=== PATIENT | female | born 1955 | race Caucasian/White ===

== ENCOUNTER → 2022-08-15 23:00 | Outpatient (CLI) | payer MEDICARE, SELFPAY ==
[2022-08-15 19:04] LABS: Basophils % 1.3 % (0.1-2.0); Eosinophils # 0.1 K/mm3 (0.0-0.4); Eosinophils % 4.3 % (0.1-12.0); Hematocrit 36.8 % (37.0-47.0); Hemoglobin 11.8 g/dL (12.2-16.2); Lymphocytes # 0.9 K/mm3 (0.7-4.5); Lymphocytes % 28.9 % (10-50); Mean Corpuscular HGB Conc 32.1 g/dL (31.8-35.4); Mean Corpuscular Hemoglobin 30.1 pg (27.0-31.2); Mean Corpuscular Volume 93.7 fl (81-99); Mean Platelet Volume 8.9 fl (7.4-10.4); Monocytes # 0.3 K/mm3 (0.1-1.0); Monocytes % 10.2 % (1.7-9.3); Neutrophils # 1.7 K/mm3 (1.8-7.8); Neutrophils % 55.2 % (37.0-80.0); Platelet Count 255 K/mm3 (142-424); Red Blood Count 3.93 M/mm3 (4.20-5.40); Red Cell Distribution Width 15.3 % (11.5-17.5); White Blood Count 3.2 K/mm3 (4.8-10.8)
[2022-08-15 21:08] LABS: Hemoglobin A1C 4.9 % (4.0-6.0)
[2022-08-15 21:10] LABS: Alanine Aminotransferase 14 U/L (12-78); Albumin Level 3.8 g/dl (3.5-5.0); Albumin/Globulin Ratio 1.2 (1.1-1.8); Alkaline Phosphatase 111 U/L (38-126); Aspartate Amino Transferase 25 U/L (14-36); Bilirubin,Total 0.4 mg/dl (0.2-1.3); Blood Urea Nitrogen 18 mg/dl (7-17); Calcium 8.4 mg/dl (8.4-10.2); Carbon Dioxide 28 mmol/L (22.0-30.0); Chloride 105 mmol/L (98-107); Chol/HDL Ratio 3.3 (1-3.5); Cholesterol 190 mg/dl (140-200); Estimated Glomerular Filt Rate 83 ml/min (>60); GFR (African American) 101 ML/MIN (>60); Globulin 3.3 g/dL (1.3-3.2); Glucose 87 mg/dl (74-100); HDL Cholesterol 58 mg/dl (40-60); Potassium 4.2 mmoL/L (3.5-5.1); Total Protein,Serum 7.1 g/dl (6.3-8.2); Triglycerides 92 mg/dl (30-150); VLDL Cholesterol 18 mg/dL (0-40)
[2022-08-15 21:23] LABS: Anion Gap 9.2 mEq/L (5-15); Sodium 138 mmol/L (136-145)
[2022-08-15 22:21] LABS: Thyroid Stimulating Hormone 1.65 uIU/mL (0.465-4.68)
== END ==
PROVIDERS: PCP Nurse Practitioner Family; Visit Provider Nurse Practitioner Family
DX: M79.675 Pain in left toe(s) (principal); R53.83 Other fatigue; E11.9 Type 2 diabetes mellitus without complications; L40.50 Arthropathic psoriasis, unspecified
CPT/HCPCS: 80053; 80061; 83036; 84443; 85025

== ENCOUNTER → 2022-08-24 22:33 | Outpatient (CLI) | payer MEDICARE, SELFPAY | PROVIDERS: PCP Emergency Medicine; Visit Provider Emergency Medicine | DX: N39.0 Urinary tract infection, site not specified (principal) | CPT/HCPCS: 87086 ==

== ENCOUNTER → 2022-08-29 09:39 | Outpatient (CLI) | payer MEDICARE, SELFPAY ==
--- NOTE | 2022-08-29 09:40 | US_ITS ---
FINAL REPORT CLINICAL HISTORY: .utis urinary bladder FINDINGS: Limited sonographic images of the bladder were obtained. The bladder measures 7.2 x 5.9 x 8.0 cm. Ureteral jets are visualized. Prevoid volume measures 178 cc. Postvoid volume measures 44 cc. IMPRESSION: Small to moderate postvoid residual. Reviewed, Interpreted and Dictated by Ambrocio Olea MD Transcribed by Sara Francisco Authenticated and [facility] [place] [place]
== END ==
PROVIDERS: PCP Emergency Medicine; Visit Provider Physician Assistant
DX: N39.0 Urinary tract infection, site not specified (principal)
CPT/HCPCS: 76857

== ENCOUNTER → 2023-05-06 11:58 | Outpatient (CLI) | payer MEDICARE, SELFPAY ==
--- NOTE | 2023-05-06 12:19 | XR_ITS ---
FINAL REPORT CLINICAL HISTORY: Right hip pain COMPARISON: None FINDINGS: RIGHT HIP Two views of the right hip demonstrate no acute fracture or dislocation. There is mild sclerosis of the pubic symphysis which may be seen with ospubitis. The visualized bony structures are well aligned. No soft tissue abnormality is seen. IMPRESSION: No acute bony abnormality. Reviewed, Interpreted and Dictated by Criselda Thomson MD Transcribed by Rosana Hudson Authenticated and [facility]
--- NOTE | 2023-05-06 12:19 | XR_ITS ---
FINAL REPORT CLINICAL HISTORY: Left hip pain COMPARISON: None FINDINGS: LEFT HIP: Three views of the left hip including an AP view of the pelvis demonstrate no acute fracture or dislocation. There is mild sclerosis of the pubic symphysis which may be seen with ospubitis. The visualized bony structures are well aligned. No soft tissue abnormality is seen. IMPRESSION: No acute bony abnormality. Reviewed, Interpreted and Dictated by Criselda Thomson MD Transcribed by Rosana Hudson Authenticated and [facility]
--- NOTE | 2023-05-06 12:19 | XR_ITS ---
FINAL REPORT CLINICAL HISTORY: Low back pain, gait disturbances COMPARISON: None FINDINGS: Five views of the lumbosacral spine were obtained. No fracture is identified. There is moderate to severe diffuse degenerative disc disease. Vacuum disc changes are noted at multiple levels. There is moderate facet arthropathy. There is minimal dextroscoliosis. IMPRESSION: Moderate to severe degenerative changes without acute findings. Reviewed, Interpreted and Dictated by Criselda Thomson MD Transcribed by Rosana Hudson Authenticated and [facility] [place]
--- NOTE | 2023-05-06 12:19 | XR_ITS ---
FINAL REPORT CLINICAL HISTORY: Left knee pain COMPARISON: None FINDINGS: Two views of the left knee were obtained. Post arthroplasty changes. Hardware is intact. There is no acute fracture or dislocation. There is no joint effusion. There is no soft tissue abnormality. IMPRESSION: Postoperative changes without acute findings. Reviewed, Interpreted and Dictated by Criselda Thomson MD Transcribed by Rosana Hudson Authenticated and [facility]
--- NOTE | 2023-05-06 12:22 | XR_ITS ---
FINAL REPORT CLINICAL HISTORY: Right knee pain COMPARISON: None FINDINGS: Two views of the right knee were obtained. Post arthroplasty changes. Hardware is unremarkable. There is no acute fracture or dislocation. There is no joint effusion. There is no soft tissue abnormality. IMPRESSION: Postoperative changes without acute fracture Reviewed, Interpreted and Dictated by Criselda Thomson MD Transcribed by Rosana Hudson Authenticated and [facility] [place]
[2023-05-06 13:18] LABS: Hemoglobin A1C 5.2 % (4.0-6.0)
[2023-05-06 14:12] LABS: Iron 47 ug/dL (37-170)
[2023-05-06 14:22] LABS: Total Iron Binding Capacity 450 ug/dL (265-497)
[2023-05-06 14:24] LABS: Vitamin B12 221 pg/mL (239-931)
[2023-05-06 14:48] LABS: Ferritin 6.71 ng/ml (11.1-264)
[2023-05-06 15:12] LABS: Folate 9.78 ng/mL
[2023-05-08 14:12] LABS: Albumin 3.1 g/dL (2.9-4.4); Alpha-1-Globulin 0.3 g/dL (0.0-0.4); Gamma Globulin 1.6 g/dL (0.4-1.8); Interpretation(See Below) Comment: (.); Protein, Total 7.4 g/dL (6.0-8.5)
== END ==
PROVIDERS: PCP Internal Medicine; Visit Provider Nurse Practitioner Family
DX: R42 Dizziness and giddiness; R25.2 Cramp and spasm; R20.0 Anesthesia of skin; R20.2 Paresthesia of skin; E11.9 Type 2 diabetes mellitus without complications; R26.9 Unspecified abnormalities of gait and mobility; M54.50 Low back pain, unspecified; M25.551 Pain in right hip; M25.552 Pain in left hip
CPT/HCPCS: 36415; 72100; 73502; 73560; 73562; 82607; 82728; 82746; 83036; 83540; 83550; 84155; 84165; 86334

== ENCOUNTER → 2023-05-15 10:59 | Outpatient (CLI) | payer MEDICARE, SELFPAY ==
[2023-05-15 11:31] LABS: Basophils % 0.9 % (0.1-2.0); Eosinophils # 0.2 K/mm3 (0.0-0.4); Eosinophils % 5.7 % (0.1-12.0); Hematocrit 40.2 % (37.0-47.0); Lymphocytes # 0.8 K/mm3 (0.7-4.5); Lymphocytes % 27.5 % (10-50); Mean Corpuscular HGB Conc 32.3 g/dL (31.8-35.4); Mean Corpuscular Hemoglobin 30.7 pg (27.0-31.2); Mean Corpuscular Volume 94.9 fl (81-99); Mean Platelet Volume 8.2 fl (7.4-10.4); Monocytes # 0.2 K/mm3 (0.1-1.0); Monocytes % 8.2 % (1.7-9.3); Neutrophils # 1.7 K/mm3 (1.8-7.8); Neutrophils % 57.7 % (37.0-80.0); Platelet Count 209 K/mm3 (142-424); Red Blood Count 4.24 M/mm3 (4.20-5.40); Red Cell Distribution Width 16.6 % (11.5-17.5); White Blood Count 2.9 K/mm3 (4.8-10.8)
[2023-05-15 12:40] LABS: Iron 55 ug/dL (37-170)
[2023-05-15 12:51] LABS: Total Iron Binding Capacity 415 ug/dL (265-497)
[2023-05-15 13:16] LABS: Ferritin 6.66 ng/ml (11.1-264)
[2023-05-15 13:21] LABS: Vitamin B12 208 pg/mL (239-931)
== END ==
PROVIDERS: PCP Nurse Practitioner Family; Visit Provider Internal Medicine Medical Oncology
DX: D50.9 Iron deficiency anemia, unspecified (principal)
CPT/HCPCS: 82607; 82728; 82746; 83540; 83550; 85025

== ENCOUNTER 2023-05-30 08:26 | Day surgery (SDC) | payer MEDICARE, SELFPAY ==
[2023-05-29 08:36] VITALS: BMI 41.6
[2023-05-30] VITALS (7 sets, daily range): BP systolic 127–151; BP diastolic 75–89; PULSE 58–64; RESP 14–18; TEMP 36.4–36.6; O2SAT 95–99
--- NOTE | 2023-05-30 08:55 | EXP.ANES.CKL ---
[facility] Disclaimer: The information contained in this section may have been updated after the patient was seen, as this information can be updated by other users. Medical History Depression Hyperlipidemia IBS (irritable bowel syndrome) Surgical History H/O gastric bypass History of knee replacement Family History Other Asthma Cancer Coronary artery disease Diabetes Stroke Social History Smoking Status: Never smoker alcohol intake: never substance use type: denies use current occupational status: retired Travel in the last 8 weeks: None household members: other housing: house lives independently: Yes marital status: [facility] Anesthesia Checklist Patient Identification Patient Identification: Arm Band and Verbal (Name & ) Structural Data Admitted From: Home Planned Operative Procedure/s: EGD/Colonoscopy Consent for Planned Operative Procedure(s) Verified: Yes Verified Documents: Surgical Consent and History and Physical Chart Verification Results Verified: CBC and BMP Additional verifications Patient : No Anesthesia Reactions: No Cardiovascular Assessment Heart Sounds: S1 & S2 Pulse Rhythm: Irregular Peripheral Edema: Yes (2+ SALMA LE) Airway Assessment Mallampati Score:: Class II C-Spine Mobility Assessed: Yes (FROM) TMJ Mobility Assessed: Yes Dentition: Edentulous Neurological Assessment Level of Consciousness: Awake, Alert, Appropriate and Follows Commands Hx Seizures: No Numbness or tingling in extremities: Yes (SALMA LE) Anesthesia Plan Anesthesia Risk discussed: Yes Anesthesia Plan: Verified ASA Class: III Anesthesia Type: MAC
[2023-05-30] MEDS: LACTATED RINGERS 1000ML 1,000 ML 100 ML IV (08:57)
--- NOTE | 2023-05-30 09:24 | HMH.SCOPE ---
Procedure: Date: 05/30/23 Patient Date of :: 1955 Procedure Performed:: Diagnostic EGD Indications:: Iron deficiency anemia Performing Provider:: South Arias MD Referring Provider:: Richard Fowler M.D. Sedation:: Propofol Procedure:: The gastroscope was gently passed through the incisoral orifice into the oral cavity and under direct visualization the esophagus was intubated. The endoscope was passed down the esophagus, through the stomach, and into the duodenum. Color, texture, mucosa, and anatomy of the esophagus, stomach, and duodenum were carefully examined with the scope. Findings:: Oropharynx: normal Esophagus: normal EG Junction: intact at 40 cm Cardia: normal Fundus: normal Body: Gastric bypass anatomy (R-2) type Antrum: by passed Duodenal by passed Duodenum (second and third portion): normal Impression: Unremarkable post gastric bypass anatomy No evidence of ulcer disease or active blood loss Recommendations:: F/U PRN Complications:: None Estimated blood obtained (mL): 0 Colonoscopy Component Colonoscopy Component Was a colonoscopy performed during today's procedure?: No
--- NOTE | 2023-05-30 09:27 | HMH.SCOPE ---
Procedure: Date: 05/30/23 Patient Date of :: 1955 Procedure Performed:: Colonoscopy Indications:: Iron deficiency anemia Performing Provider:: South Arias MD Referring Provider:: Richard Fowler M.D. Sedation:: Propofol Procedure:: After placing the patient in the left lateral decubitus position, the colonoscopy was gently inserted into the rectum and under direct visualization advanced to the mid sigmoid region where further advancement was found not possible due to poor colon preparation. Decision was made to discontinue the procedure at this time. Findings:: Anal canal: normal Rectum: normal Sigmoid colon: grossly normal. Mucosa covered with thick layer of residual stool compromising visualization. Descending colon: Not seen Splenic flexure: Not seen Transverse colon: Not seen Hepatic flexure: Not seen Ascending colon: not seen Cecum: not seen Terminal ileum: not visualized Impression: Incomplete colonoscopy due to inadequate colon prep Recommendations:: Consider repeat colonoscopy attempt after a two-day prep. Complications:: None Estimated blood obtained (mL): 0 Colonoscopy Component Colonoscopy Component Was a colonoscopy performed during today's procedure?: Yes Recommended follow up colonoscopy of at least 10 years?: No If no, follow up colonoscopy recommended in ___ years?: 0 Reason for not recommending >/= 10 yr follow-up interval?: Incomplete exam due to poor prep
--- NOTE | 2023-05-30 09:31 | EXP.ANES.I ---
[facility] Anesthesia Record Part I Anesthesia Record I Intake, IV Amount: 200 Hydration: Adequate Estimated blood loss (mL): 0 Urine output (mL): 0 Blood Products used (#): none Blood Pressure: 137/78 SaO2: 96 Pulse Rate: 59 Airway Patency: Patent Respiratory Rate: 18 Temperature: 97.6 F Patient is:: Awake (Talking) and Stable Stable to PACU at:: 09:30
== END 2023-05-30 10:10 | disposition home or self-care (01) ==
PROVIDERS: PCP Nurse Practitioner Family; Visit Provider Internal Medicine Gastroenterology
PROC: 0DJ08ZZ Inspection of Upper Intestinal Tract, Via Natural or Artificial Opening Endoscopic (ICD-10-PCS; CPT 43235; principal; 2023-05-30 09:30)
DX: D50.9 Iron deficiency anemia, unspecified (principal); Z98.84 Bariatric surgery status; Z91.199 Patient's noncompliance with other medical treatment and regimen due to unspecified reason
CPT/HCPCS: 43235; 45378

== ENCOUNTER 2023-07-03 13:33 | Outpatient (CLI) | payer MEDICARE, SELFPAY ==
[2023-07-03 14:13] LABS: Basophils % 0.4 % (0.1-2.0); Eosinophils # 0.1 K/mm3 (0.0-0.4); Eosinophils % 2.9 % (0.1-12.0); Hematocrit 39.7 % (37.0-47.0); Hemoglobin 12.9 g/dL (12.2-16.2); Lymphocytes % 27.8 % (10-50); Mean Corpuscular HGB Conc 32.6 g/dL (31.8-35.4); Mean Corpuscular Hemoglobin 31.7 pg (27.0-31.2); Mean Corpuscular Volume 97.4 fl (81-99); Mean Platelet Volume 7.8 fl (7.4-10.4); Monocytes # 0.2 K/mm3 (0.1-1.0); Monocytes % 6.5 % (1.7-9.3); Neutrophils # 2.1 K/mm3 (1.8-7.8); Neutrophils % 62.3 % (37.0-80.0); Platelet Count 222 K/mm3 (142-424); Red Blood Count 4.08 M/mm3 (4.20-5.40); Red Cell Distribution Width 17.8 % (11.5-17.5); White Blood Count 3.4 K/mm3 (4.8-10.8)
[2023-07-03 14:42] LABS: Chloride 104 mmol/L (98-107)
[2023-07-03 14:43] LABS: Potassium 4.6 mmoL/L (3.5-5.1); Sodium 139 mmol/L (136-145)
[2023-07-03 14:45] LABS: Alanine Aminotransferase 21 U/L (12-78); Alkaline Phosphatase 135 U/L (38-126); Anion Gap 8.6 mEq/L (5-15); Aspartate Amino Transferase 32 U/L (14-36); Bilirubin,Total 0.5 mg/dl (0.2-1.3); Blood Urea Nitrogen 14 mg/dl (7-17); Carbon Dioxide 31 mmol/L (22.0-30.0); Estimated Glomerular Filt Rate 71 ml/min (>60); GFR (African American) 86 ML/MIN (>60); Iron 82 ug/dL (37-170)
[2023-07-03 14:46] LABS: Albumin Level 3.6 g/dl (3.5-5.0); Albumin/Globulin Ratio 1.1 (1.1-1.8); Calcium 8.8 mg/dl (8.4-10.2); Globulin 3.2 g/dL (1.3-3.2); Glucose 87 mg/dl (74-100); Total Protein,Serum 6.8 g/dl (6.3-8.2)
[2023-07-03 14:55] LABS: Total Iron Binding Capacity 374 ug/dL (265-497)
[2023-07-03 15:31] LABS: Ferritin 17.4 ng/ml (11.1-264)
[2023-07-03 15:45] LABS: Vitamin B12 867 pg/mL (239-931)
[2023-07-03 16:18] LABS: Folate 8.15 ng/mL
== END 2023-07-03 23:59 ==
LOC: LAB 13:35
PROVIDERS: PCP Nurse Practitioner Family; Visit Provider Internal Medicine Medical Oncology
DX: E53.8 Deficiency of other specified B group vitamins; D50.9 Iron deficiency anemia, unspecified
CPT/HCPCS: 36415; 80053; 82607; 82728; 82746; 83540; 83550; 85025

== ENCOUNTER 2023-08-22 15:00 | Outpatient (RCR) | payer MEDICARE, SELFPAY ==
--- NOTE | 2023-07-21 18:53 | HMH.PTOPEV ---
PT Outpatient Evaluation Rehab PT Outpatient Evaluation Start: 07/19/23 09:42 Freq: Status: Active Protocol: Document 07/19/23 09:42 YASMANY (Rec: 07/19/23 18:28 YASMANY [id number]) E-signed By Arturo Dyer, PT Outpatient Therapy Subjective History Subjective History Patient is a 68 year old female presenting to outpatient PT with reports of chronic low back pain, BLE weakness and paresthesia R>L. Reports of LBP for approx 30 years. Reports of numbness/ tingling L>R. Comorbidities include hx of B TKA and gastric bypass procedure per patient report. Most recent imaging indicates multi-level DDD. New diagnosis of cancer in past 12 No months? Chief Complaint Pain,Paresthesia,Weakness Symptom Type Ache Symptoms Relieved By Rest/Positioning Symptoms Aggravated By Standing,Physical Activity, Walking Prior Functional Limitations Standing,Walking Current Functional Limitations Housework,Standing,Walking Symptom Description Intermittent Level of pain today (0-10) 5 Pain scale - at its best (0-10) 3 Pain scale - at its worst (0-10) 9 Balance Eval Subjective Hx of Complaint Comment Difficulty with all standing/ abulatory activities. Prior Functional Limitations Prior Functional [place] Level LPB, difficulty with prolonged standing, ambulation, bending and lifting activities. Current Functional Limitations Comment LPB, difficulty with prolonged standing, ambulation, bending and lifting ac [place] Feet Together/Eyes open/Stable Surface pass Feet Together/Eyes Closed/Stable Surface pass Feet Together/Eyes open/Unstable Surface fail Feet Together/Eyes Closed/Unstable fail Surface Outpatient Therapy Assessment Impairments Problems/Impairmments Palpation Tenderness,Impaired Range of Motion,Impaired Strength,Impaired Endurance, Impaired Walking,Impaired Standing,Impaired Lifting, Impaired Household Care, Impaired Stair Climbing, Impaired Incline Stepping, Impaired Stepping on Uneven Surface,Impaired Squatting, Impaired Bending,Impaired Balance,Subjective C/O Pain Prognosis Rehab Potential Fair Clinical Impression Consistent with Diagnosis Yes Short Term Goals Number of Weeks 2 Decrease Subjective C/O Pain Yes: 5/10 at worst Patient to be Ind w/ HEP Yes Criminal Intelligence Analyst Goals Number of Weeks 4-6 Decreased Palpation Tenderness Yes: 1/4 Increase Strength Yes: BLE 5/5 grossly (4-/5 currently) Increase Ability to Walk Yes: 30 min without difficulty Increase Ability to Stand Yes: Improve Ability For Household Care Yes Increase DGI Score Yes: mild fall risk Decrease Subjective C/O Pain Yes: 2/10 at worst Outpatient Therapy Plan of Care Addendums This patient is a candidate for social No or vocational rehab? Patient/Guardian verbally acknowledges Yes understanding of treatment program and consents to further treatment? Patient/Guardian verbally acknowledges Yes understanding of diagnosis, prognosis and goals for treatment? Eval Complexity PT Charges 51478 - Moderate Complexity Shoulder/Elbow Eval Shoulder Objective Measurements Elbow Objective Measurements PHYSICIAN CERTIFICATION: I certify the specified therapy services for Karrie Tobias are required, authorized, and reviewed every 30 days.
== END 2023-08-22 16:00 | disposition home or self-care (01) ==
LOC: PT 15:00
PROVIDERS: PCP Nurse Practitioner Family; Visit Provider Nurse Practitioner Family
DX: R26.89 Other abnormalities of gait and mobility (principal); M25.551 Pain in right hip; M25.552 Pain in left hip; M25.562 Pain in left knee; M25.561 Pain in right knee; M54.50 Low back pain, unspecified; R29.898 Other symptoms and signs involving the musculoskeletal system; R20.0 Anesthesia of skin; R20.2 Paresthesia of skin; G57.82 Other specified mononeuropathies of left lower limb
CPT/HCPCS: 97010; 97014; 97110; 97163; 97530; G0283

== ENCOUNTER 2023-12-10 09:48 | Outpatient (CLI) | payer MEDICARE, SELFPAY ==
--- NOTE | 2023-12-10 09:54 | MM_ITS ---
PROCEDURE INFORMATION: Exam: MG Bilateral Screening 3D Mammography Exam date and time: 12/10/2023 9:50 AM Age: 68 years old Clinical indication: Screening examination TECHNIQUE: Imaging protocol: Bilateral Screening tomosynthesis and 2D mammography including computer-aided detection (CAD) when performed. COMPARISON: No relevant prior studies available. Baseline FINDINGS: MAMMOGRAPHY: Breast composition: There are scattered areas of fibroglandular density. Mass: Questionable 1.2 cm mass in the middle third of the left 9 o'clock axis Architectural distortion: None. Calcifications: No suspicious calcifications. Asymmetric density: None. Skin thickening: None. Axillary adenopathy: None. IMPRESSION: Patient to be recalled for spot compression views of the left breast in the CC and MLO projections, a full 90 degree lateral view, and possible left breast ultrasound for further evaluation of a left breast mass. ASSESSMENT: BI-RADS Category 0: Incomplete- Need Additional Imaging Evaluation and/or Prior Mammograms for Comparison.
== END 2023-12-10 23:59 | disposition home or self-care (01) ==
LOC: RAD 09:49
PROVIDERS: PCP Nurse Practitioner Family; Visit Provider Nurse Practitioner Family
DX: Z12.31 Encounter for screening mammogram for malignant neoplasm of breast (principal)
CPT/HCPCS: 77063; 77067

== ENCOUNTER 2024-01-01 14:16 | Outpatient (CLI) | payer MEDICARE, SELFPAY ==
--- NOTE | 2024-01-01 14:17 | US_ITS ---
PROCEDURE INFORMATION: Exam: US Left Breast, Complete MG Left Diagnostic Breast Tomosynthesis Exam date and time: 01/01/2024 2:10 PM Age: 68 years old Clinical indication: Callback for questionable 1.2 cm mass in the left 9 o'clock middle 1/3 identified on screening mammogram 12/10/2023 TECHNIQUE: Imaging protocol: Complete ultrasound of all four quadrants of the left breast and the retroareolar regions, including ultrasound of the axilla when performed. Left Diagnostic tomosynthesis and 2D mammography including computer-aided detection (CAD) when performed. Unilateral or bilateral exam. COMPARISON: MG MM DIG SCREENING MAMM BI W/CAD 12/10/2023 9:50 AM FINDINGS: MAMMOGRAPHY: Breast composition: There are scattered areas of fibroglandular density. Breast mammogram findings: Cc/MLO spot compression views and lateral view of the left breast were performed The finding of interest does not persist on CC spot compression view with subtle 1.1 cm focal asymmetry persisting on MLO/full lateral in the slightly upper anterior left breast. No architectural distortion or suspicious calcifications ULTRASOUND: Breast ultrasound findings: Incidentally discovered 0.2 cm hypoechoic superficial mass along the 11 o'clock axis left breast 3 cm from the nipple has features suggesting fat necrosis Otherwise, only normal glandular structures are present in the regions assessed No suspicious solid or cystic mass is present. No benign-appearing solid or cystic mass is present. No architectural distortion or shadowing is present. No axillary adenopathy is present. IMPRESSION: Probably benign. Six-month follow-up left diagnostic mammogram is recommended to assess stability of possible subtle focal asymmetry only persisting on MLO spot compression and lateral view of the left breast with no sonographic correlate. Six-month follow-up targeted ultrasound is recommended to assure stability of a probable 0.2 cm focus of fat necrosis along the left 11 o'clock axis ASSESSMENT: BI-RADS category 3: Probably benign
== END 2024-01-01 23:59 | disposition home or self-care (01) ==
LOC: RAD 14:17
PROVIDERS: PCP Nurse Practitioner Family; Visit Provider Nurse Practitioner Family
DX: R92.8 Other abnormal and inconclusive findings on diagnostic imaging of breast (principal); Z85.3 Personal history of malignant neoplasm of breast
CPT/HCPCS: 76641; 77061; 77065; G0279

== ENCOUNTER 2025-03-01 13:53 | Outpatient (CLI) | payer MEDICARE, SELFPAY ==
--- OUTSIDE RECORDS SUMMARY | 2025-03-01 13:55 | XMS_ITS | Clinical Summary ---
Author Organization [facility] Address [address] [place] [address] Care Team Providers Care Vp Director Of Finance Name Role Phone Dionte Archibald BRITT Primary Care Provider + Allergies Active Allergy Reactions Criticality Noted Date Comments Penicillins Other (See Comments) 08/09/2015 Prednisone Other (See Comments) Medium 11/16/2020 Medications leflunomide (ARAVA) 20 MG tablet Take 20 mg by mouth Every Other Day. 0 07/08/19 19 Active rOPINIRole (REQUIP) 1 MG tablet Take 1 mg by mouth 3 (Three) Times a Day. 0 01/01/20 19 Active COSENTYX SENSOREADY 300 DOSE 150 MG/ML solution auto-injector 01/20/20 19 Active hydrOXYzine (ATARAX) 25 MG tabletIndications: Dermatitis Take 1 tablet by mouth 3 (Three) Times a Day As Needed for Itching. 30 tablet 2 06/08/20 19 Active amLODIPine (NORVASC) 10 MG tabletIndications: Essential hypertension Take 1 tablet by mouth Daily. 30 tablet 5 10/06/19 20 Active buPROPion SR (WELLBUTRIN SR) 100 MG 12 hr tabletIndications: Moderate episode of recurrent major depressive disorder Take 1 tablet by mouth 2 (Two) Times a Day. 60 tablet 5 10/06/19 20 Active venlafaxine (EFFEXOR) 75 MG tabletIndications: Severe episode of recurrent major depressive disorder, without psychotic features Take 2 tablets by mouth 2 (Two) Times a Day. 120 tablet 5 10/06/19 20 Active valACYclovir (VALTREX) 1000 MG tabletIndications: Fever blister Take 1 tablet by mouth Daily. 30 tablet 5 01/07/20 20 Active Simethicone (GAS-X PO) Take by mouth. Activ e acetaminophen (Tylenol 8 Hour) 650 MG 8 hr tablet As Needed. Active loratadine (Claritin) 10 MG tabletIndications: Seasonal allergic rhinitis due to pollen Take 1 tablet by mouth Daily. 30 tablet 1 11/17/19 21 Active ondansetron ODT (ZOFRAN-ODT) 8 MG disintegrating tabletIndications: Nausea Take 1/2 to 1 tablet by mouth (dissolve under tongue or swallow) every 8 hours as needed for nausea. 30 tablet 1 07/04/19 22 Active clobetasol (TEMOVATE) 0.05 % ointmentIndication s:Psoriasis with arthropathy Apply topically to the appropriate area as directed See Admin Instructions. Apply topically to the affected area twice daily 15 g 1 10/12/19 22 Active Active Problems Problem Noted Date Diagnosed Date Mixed hyperlipidemia 01/08/2020 Fever blister 01/08/2020 Sciatica of right side 10/06/2019 Severe episode of recurrent major depressive disorder, without psychotic features 10/06/2019 Pure hypercholesterolemia 01/27/2019 Rheumatoid arthritis 01/26/2019 Calculus of gallbladder with out cholecystitis without obstruction 09/17/2018 Elevated alkaline phosphatase level 08/25/2018 Essential hypertension 08/22/2018 RLS (restless legs syndrome) 08/22/2018 Angina at rest 08/22/2018 H/O bariatric surgery 08/22/2018 Chronic pain of both knees 08/22/2018 Moderate episode of recurrent major depressive d isorder 08/22/2018 LEONARD (obstructive sleep apnea) 08/22/2018 Morbid obesity 08/22/2018 Vertigo 08/22/2018 Psoriasis 08/22/2018 Small plaque parapsoriasis 01/25/2016 Psoriasis with arthropathy 10/21/2015 Vitamin D deficiency 09/21/2015 Pain in right foot 08/09/2015 Pain in right hand 08/09/2015 Immunizations Immunization Administration Dates Next Due Flu Vaccine Quad PF >36MO 03/13/2016 Fluzone (or Fluarix & Flulaval for VFC) >6mos Shingrix 01/28/2019 Family History Medical History Relation Name Comments Breast cancer Maternal Aunt AGE UNKNOWN Cancer Mother Hyperlipidemia Mother Hypertension Mother Obesity Mother Ovarian cancer Mother Hypertension Sister Relation Name Status Comments Maternal Aunt Mother Sister Social History Tobacco Use Types Packs/Day Years Used Date Smoking Tobacco: Never Smokeless Tobacco: Never Tobacco Cessation:Counseling Given: No Alcohol Use Standard Drinks/Week Comments No 0 (1 standard drink = 0.6 oz pur e alcohol) AUDIT-C Answer Date Recorded Frequency of Alcohol Consumption Never 10/20/2018 Average Number of Drinks Not on file 019 Frequency of Binge Drinking Not on file 10/08 PHQ-2 Answer Date Recorded PHQ-2 Score 26 01/26/2019 Abuse Screen Answer Date Recorded Unsafe at Home or Work/School Not on file Feels Threatened by Someone? Not on file 03/2023 Does Anyone Keep You from Co ntacting Others or Doint Things Outside the Home? Not on file 03/19/2023 Physical Sign of Abuse Present Not on file 1 Housing Stability Answer Date Recorded Current Living Arrangements Not on file 03/10 Potentially Unsafe Housing Conditions Not on keri e 03/19/2023 Family and Community Support Answer Ganga e Recorded Help with Day-to-Day Activities Not on file 03/19/2023 Lonely or Isolated Not on file 03/19/2023 Employment Answer Date Recorded Do you want help finding or keeping work or a payton b? Not on file 03/19/2023 Disabilities Answer Date Recorded Concentrating, Remembering, or Making Decisions Difficulty Not on file 03/19/2023 Doing Errands Independently Difficulty Not on fi le 03/19/2023 Education Answer Date Recorded Help with school or training? Not on file Preferred Language Not on file 03/19/2023 Comments No Sex and Gender Information Value Date Recorded Sex Assigned at Not on file Legal Sex Female 1:39 PM EDT Gender Identity Not on file Sexual Orientation Not on file Last Filed Vital Signs Vital Sign Reading Time Taken Comments Blood Pressure 138/90 11/16/2020 1:27 PM EDT Pulse 85 11/16/2020 1:27 PM EDT Temperature 36.2 C (97.2 F) 11/16/2020 1:27 PM EDT Respiratory Rate 18 11/16/2020 1:27 PM EDT Oxygen Saturation 98% 11/16/2020 1:27 PM EDT Inhaled Oxygen Concentration - - Weight 125 kg (275 lb) 11/16/2020 1:27 PM EDT Height 162.6 cm (5' 4 ) 11/16/2020 1:27 PM EDT Body Mass Index 47.2 11/16/2020 1:27 PM EDT Plan of Treatment Health Maintenance Due Date Last Done Comments DXA SCAN 1955 TDAP/TD VACCINES (1 - Tdap) 1974 COLOGUARD 2000 COLON CANCER SCREENING 5 YEA R SIGMOIDOSCOPY 2000 CT COLONOGRAPHY 2000 FECAL OCCULT BLOOD TEST 2000 FIT Testing (1 year) 2000 Pneumococcal Vaccine 50+ (1 of 1 - PCV) 2005 MAMMOGRAM 03/16/2018 03/16/2016 ANNUAL PHYSICAL 08/22/2018 LIPID PANEL 08/16/2023 08/15/2022, 07/06/2021, 01/12/2020, Additional history exists INFLUENZA VACCINE 01/08/2025 01/28/2019, 03/13/2016 COVID-19 Vaccine (1 - 2023-2 5 season) 2025 COLONOSCOPY 02/26/2028 02/25/2018 COLORECTAL CANCER SCREENING 02/26/2028 HEPATITIS C SCREENING Completed 01/26/2019 ZOSTER VACCINE Discontinued 01/28/2019 HEMOGLOBIN A1C Discontinued 08/15/2022 Procedures Procedure Name Priority Date/Time Associated Diagnosis Comments LIPID PANEL Routine 01/12/2020 8:50 AM EDT Mixed hyperlipidemia HEPATITIS C ANTIBODY Routine 01/26/2019 2:36 PM EDT Need for hepatitis C screening test MAMMO SCREENING DIGITAL TOMOSYNTHESIS BILATERAL W CAD Routine 03/16/2016 2:18 PM EDT Visit for screening mammogram from Last 3 Months or Most Recently Relevant to Health Maintenance Results * (ABNORMAL) Lipid Panel (01/12/2020 8:50 AM EDT) Total Cholesterol 180 0 - 200 mg/dL 01/12/2020 3:00 PM EDT [facility] Triglycerides 112 0 - 150 mg/dL 01/12/2020 3:00 PM EDT [facility] HDL Cholesterol 54 40 - 60 mg/dL 01/12/2020 3:00 PM EDT [facility] LDL Cholesterol 104(H) 0 - 100 mg/dL 01/12/2020 3:00 PM EDT [facility] VLDL Cholesterol 22.4 5 - 40 mg/dL 01/12/2020 3:00 PM EDT [facility] LDL/HDL Ratio 1.92 01/12/2020 3:00 PM EDT [facility] Blood Venipuncture / Unknown 01/12/2020 8:50 AM EDT 01/12/2020 8:50 AM EDT Narrative [facility] - 01/12/2020 3:00 PM EDT Cholesterol Reference Ranges (U.S. Department of Health and Human Services ATP III Classifications) Desirable <200 mg/dL Borderline High 200-239 mg/dL High Risk >240 mg/dL Triglyceride Reference Ranges (U.S. Department of Health and Human Services ATP III Classifications) Normal <150 mg/dL Borderline High 150-199 mg/dL High 200-499 mg/dL Very High >500 mg/dL HDL Reference Ranges (U.S. Department of Health and Human Services ATP III Classifcations) Low <40 mg/dl (major risk factor for CHD) High >60 mg/dl ('negative' risk factor for CHD) LDL Reference Ranges (U.S. Department of Health and Human Services ATP III Classifcations) Optimal <100 mg/dL Near Optimal 100-129 mg/dL Borderline High 130-159 mg/dL High 160-189 mg/dL Very High >189 mg/dL us Lor Harrison APRN LAB BLOOD ORDERABLES Final R esult [facility]
[address] [place] [address], * Hepatitis C Antibody (01/26/2019 2:36 PM EDT) Hep C Virus Ab <0.1 0.0 - 0.9 s/co ratio [facility] Comment: Negative: < 0.8 Indeterminate: 0.8 - 0.9 Positive: > 0.9 The CDC recommends that a positive HCV antibody result be followed up with a HCV Nucleic Acid Amplification test (000617). Blood 01/26/2019 2:36 PM EDT 01/27/2019 Comment:BLOOD Narrative [facility] ([facility]) - 01/27/2019 12:09 PM EDT Performed at: 01 - [facility] [address] [place], [place] [id number] Justice Of The Peace: Konstantin Da Silva PhD, Phone: [phone] Lor Harrison APRN LAB BLOOD ORDERABLES Final R esult [facility] [address] [place] [address], [facility] [address] [place] [address], * Mammo Screening Digital Tomosynthesis Bilateral With CAD (03/16/2016 2:18 PM EDT) Anatomical Region Laterality Modality Breast N/A Mammography 03/19/2016 10:4 1 AM EDT Impressions 03/19/2016 10:50 AM EDT No findings suspicious for malignancy. ACR BI-RADS CATEGORY: 1, NEGATIVE RECOMMENDATION: Yearly mammogram, yearly physical exam, and monthly self breast exam. CAD was used. The standard false negative rate of mammography is between 10% and 25%. Complex patterns or increased breast density will markedly elevate the false negative rate of mammography. A letter, in lay terminology, with the results of this exam will be mailed to the patient. If there is a palpable area of concern, biopsy should be considered regardless of imaging findings. This report was finalized on 03/19/2016 10:[address] Kacie Garza MD. Narrative 03/19/2016 10:50 AM EDT EXAMINATION: BILATERAL SCREENING DIGITAL MAMMOGRAM WITH TOMOSYNTHESIS: HISTORY: Routine screening. IMAGE COMPARISON: This is the patient's baseline exam. TECHNIQUE: Low dose full field digital breast tomosynthesis examination was performed with 2D and 3D acquisitions. FINDINGS: There are scattered areas of fibroglandular density. There is no mass, worrisome microcalcifications, or architectural distortion to suggest malignancy. us Stacie Morfin MD IMG MAMMOGRAPHY ORDERABLES Fi nal Result from Last 3 Months or Most Recently Relevant to Health Maintenance Insurance [employer]VANTAGE Care Teams Vp Director Of Finance Relationship Specialty Start Date End Date Dionte Archibald APRN [address] [facility] [address] [place] [id number] PCP - General Family Medicine 11/16/20
--- OUTSIDE RECORDS SUMMARY | 2025-03-01 13:55 | XMS_ITS | Clinical Summary ---
Author Organization [facility] Address [address] [place] [address] Care Team Providers Care Target Setter Name Role Phone Unavailable Primary Care Provider Unavailabl e Medications clobetasol (Temovate) 0.05 % ointment Apply 1 application topically 2 (two) times a day. Active Family History Medical History Relation Name Comments Hypertension Father Diabetes Mother Hypertension Mother Other cancer Mother Relation Name Status Comments Father Mother Social History Tobacco Use Types Packs/Day Years Used Date Smoking Tobacco: Never Alcohol Use Standard Drinks/Week Comments No 0 (1 standard drink = 0.6 oz pur e alcohol) Comments Unknown Sex and Gender Information Value Date Recorded Sex Assigned at Not on file Legal Sex Female 7:40 PM EDT Gender Identity Not on file Sexual Orientation Not on file Last Filed Vital Signs Vital Sign Reading Time Taken Comments Blood Pressure 139/88 12/21/2019 10:39 AM EDT Pulse 91 12/21/2019 10:39 AM EDT Temperature 36.3 C (97.3 F) 12/21/2019 10:39 AM EDT Respiratory Rate 16 12/21/2019 10:39 AM EDT Oxygen Saturation - - Inhaled Oxygen Concentration - - Weight 127 kg (279 lb 9.1 oz) 12/21/2019 10:39 A M EDT Height 160 cm (5' 3 ) 12/21/2019 10:39 AM EDT Body Mass Index 49.52 12/21/2019 10:39 AM EDT Plan of Treatment Health Maintenance Due Date Last Done Comments UKY-Bone Density Scan 1955 UKY-Depression Screening 1955 UKY-Infant/Child/Adol SDOH Screenings 1955 UKY- SDOH Screenings 1973 UKY-Adult SDOH Screenings 1973 UKY-DTaP,Tdap,and Td Vaccine s (1 - Tdap) 1974 CT Colonography 2000 Colonoscopy 2000 FIT-DNA 2000 FIT 2000 FOBT 2000 Sigmoidoscopy 2000 UKY-Colorectal Cancer Screening 2000 UKY-Pneumococcal Vaccine: 50 + Years (1 of 1 - PCV) 2005 UKY-Zoster Vaccines (1 of 2) 2005 NKV-HQOOM-31 Vaccine ( - 20 24-25 season) 2025 UKY-Influenza Vaccine (#1) 2025 UKY-RSV Vaccine: 60+ Years o r (1 - 1-dose 75+ series) 2030 HPV Vaccines Aged Out No longer eligi ble based on patient's age to complete this topic UKY-HIB Vaccines Aged Out No longer e ligible based on patient's age to complete this topic UKY-Hepatitis A Vaccines Aged Out No longer eligible based on patient's age to complete this topic UKY-IPV Vaccines Aged Out No longer e ligible based on patient's age to complete this topic UKY-Rotavirus Vaccines Aged Out No lo nger eligible based on patient's age to complete this topic
--- OUTSIDE RECORDS SUMMARY | 2025-03-01 13:55 | XMS_ITS | Encounter Summary ---
Author Organization [facility] Address [address] [place] [id number] Care Team Providers Care Well Reactivator Operator Name Role Phone Archibald, Dionte Rhiannon ACCOUNT MANAGER B2B Primary Care Provider + Reason for Visit * Reason Onset Date Comments Med Refill 09/26/2021 Encounter Details Date Type Department Care Team (Late st Contact Info) Description 09/26/2021 Refill [facility] [address] [facility] [address] [place] [phone] Dionte Archibald, ACCOUNT MANAGER B2B [address] [facility] [address] [place] [address] Psoriasis with arthropathy Social History Tobacco Use Types Packs/Day Years Used Date Smoking Tobacco: Never Smokeless Tobacco: Never Alcohol Use Standard Drinks/Week Comments No 0 (1 standard drink = 0.6 oz pur e alcohol) AUDIT-C Answer Date Recorded Frequency of Alcohol Consumption Never 10/20/2018 Average Number of Drinks Not on file 019 Frequency of Binge Drinking Not on file 10/08 PHQ-2 Answer Date Recorded PHQ-2 Score 26 01/26/2019 Comments No Sex and Gender Information Value Date Recorded Sex Assigned at Not on file Legal Sex Female 1:39 PM EDT Gender Identity Not on file Sexual Orientation Not on file documented as of this encounter Miscellaneous Notes * Telephone Encounter - Angeli De Leon RegSched Rep - 09/26/2021 12:58 PM EDT .Caller: PARTH Relationship: MARY Best call back number:[phone] Requested Prescriptions: Requested Prescriptions Pending Prescriptions Disp Refills ??? clobetasol (TEMOVATE) 0.05 % ointment 15 g 1 Sig: Apply topically to the appropriate area as directed See Admin Instructions. Apply topically tothe affected area twice daily Pharmacy where request should be sent: [id number] - [place], [place] - [address] [facility] [phone] [facility] [phone] FX Additional details provided by patient: N/A Does the patient have less than a 3 day supply: [x] Yes [x] No Scotty KWOK 09/26/21 12:59 EDT documented in this encounter Plan of Treatment Not on file documented as of this encounter Visit Diagnoses Diagnosis Psoriasis with arthropathy Psoriatic arthropathy documented in this encounter Care Teams Well Reactivator Operator Relationship Specialty Start Date End Date Dionte Archibald APRN [address] [place] [id number] PCP - General Family Medicine 11/16/20 documented as of this encounter
--- OUTSIDE RECORDS SUMMARY | 2025-03-01 13:55 | XMS_ITS | Encounter Summary ---
[facility] Address [address] [place] [address] Care Team Providers Care Design Transferrer Name Role Phone Dionte Archibald PHOTOENGRAVING MACHINE OPERATOR/TENDER Primary Care Provider + Reason for Visit * Reason Comments Med Refill Encounter Details Date Type Department Care Team (Late st Contact Info) Description 09/21/2021 Refill [facility] [address] [facility] [address] [place] [phone] Dionte Archibald APRN [address] [facility] [address] [place] [address] Psoriasis with arthropathy Social History Tobacco Use [...] on file documented as of this encounter Plan of Treatment Not on file documented as of this encounter Visit Diagnoses Diagnosis Psoriasis with arthropathy Psoriatic arthropathy documented in this encounter Care Teams Design Transferrer Relationship Specialty Start Date End Date Dionte Archibald APRN [address] [place], [place] [phone] PCP - General Family Medicine 11/16/20 documented as of this encounter
[2025-03-01 14:30] LABS: Albumin Level 4.1 g/dl (3.5-5.0); Chloride 106 mmol/L (98-107); Potassium 4.4 mmoL/L (3.5-5.1); Sodium 141 mmol/L (136-145)
[2025-03-01 14:32] LABS: Blood Urea Nitrogen 27 mg/dl (7-17); Creatinine,Serum 0.90 mg/dl (0.52-1.04); Estimated Glomerular Filt Rate 62 ml/min (>60); GFR (African American) 75 ML/MIN (>60)
[2025-03-01 14:33] LABS: Alanine Aminotransferase 16 U/L (12-78); Albumin/Globulin Ratio 1.3 (1.1-1.8); Alkaline Phosphatase 133 U/L (38-126); Anion Gap 11.4 mEq/L (5-15); Aspartate Amino Transferase 29 U/L (14-36); Bilirubin,Total 0.5 mg/dl (0.2-1.3); Calcium 9.3 mg/dl (8.4-10.2); Carbon Dioxide 28 mmol/L (22.0-30.0); Cholesterol 182 mg/dl (140-200); Globulin 3.1 g/dL (1.3-3.2); Glucose 93 mg/dl (74-100); HDL Cholesterol 64 mg/dl (40-60); Magnesium 2.2 mg/dl (1.6-2.3); Total Protein,Serum 7.2 g/dl (6.3-8.2); Triglycerides 105 mg/dl (30-150)
[2025-03-01 15:06] LABS: Thyroid Stimulating Hormone 1.35 uIU/mL (0.465-4.68)
[2025-03-01 15:09] LABS: Ferritin 5.89 ng/ml (11.1-264)
[2025-03-01 16:33] LABS: Hemoglobin A1C 5.2 % (4.0-6.0)
[2025-03-01 18:23] LABS: Vitamin B12 934 pg/mL (239-931)
== END 2025-03-01 23:59 | disposition home or self-care (01) ==
LOC: LAB.DROPOF 13:53
PROVIDERS: PCP Nurse Practitioner Family; Visit Provider Nurse Practitioner Family
DX: L40.50 Arthropathic psoriasis, unspecified (principal); R73.9 Hyperglycemia, unspecified; E61.1 Iron deficiency; R20.0 Anesthesia of skin; R20.2 Paresthesia of skin; I10 Essential (primary) hypertension
CPT/HCPCS: 80053; 80061; 82607; 82728; 83036; 83735; 84443

== ENCOUNTER 2025-03-05 14:14 | Outpatient (CLI) | payer MEDICARE, SELFPAY ==
--- OUTSIDE RECORDS SUMMARY | 2025-03-05 14:16 | XMS_ITS | Encounter Summary ---
[facility] Organization [facility] Address [address] [place] [address] Care Team Providers Care Campus Supervisor Name Role Phone Dionte Archibald FISHER TROLL LINE Primary Care Provider + Reason for Visit * Reason Comments Med Refill Encounter Details Date Type Department Care Team (Late st Contact Info) Description 09/21/[address] [facility] [address] [facility] [address] [place] [phone] Dionte Archibald APRN [address] [facility] [address] [place] [address] Psoriasis with arthropathy Social History Tobacco Use [...] arthropathy documented in this encounter Care Teams Campus Supervisor Relationship Specialty Start Date End Date Dionte Archibald APRN [address] [place], [place] [phone] PCP - General Family Medicine 11/16/20 documented as of this encounter
--- OUTSIDE RECORDS SUMMARY | 2025-03-05 14:16 | XMS_ITS | Clinical Summary ---
Author Organization [facility] Address [address] [place] [address] Care Team Providers Care R Programmer Name Role Phone Dionte Archibald BRITT Primary [...] help finding or keeping work or a payotn b? Not on file 03/19/2023 Disabilities Answer [...] - 200 mg/dL 01/12/2020 3:00 PM EDT [facility] Triglycerides 112 0 - 150 mg/dL 01/12/2020 3:00 PM EDT [facility] HDL Cholesterol 54 40 - 60 mg/dL 01/12/2020 3:00 PM EDT [facility] LDL Cholesterol 104(H) 0 - 100 mg/dL 01/12/2020 3:00 PM EDT [facility] VLDL Cholesterol 22.4 5 - 40 mg/dL 01/12/2020 3:00 PM EDT [facility] LDL/HDL Ratio 1.92 01/12/2020 3:00 PM EDT [facility] Blood Venipuncture / Unknown 01/12/2020 8:50 AM EDT 01/12/2020 8:50 AM EDT Narrative [facility] - 01/12/2020 3:00 PM EDT Cholesterol [...] APRN LAB BLOOD ORDERABLES Final R esult [facility]
[address] [place] [address], * Hepatitis C Antibody (01/26/2019 2:36 PM EDT) Hep C Virus Ab <0.1 0.0 - 0.9 s/co ratio [facility] Comment: Negative: < 0.8 Indeterminate: 0.8 - 0.9 Positive: > 0.9 The CDC recommends that a positive HCV antibody result be followed up with a HCV Nucleic Acid Amplification test (300801). Blood 01/26/2019 2:36 PM EDT 01/27/2019 Comment:BLOOD Narrative [facility] ([facility]) - 01/27/2019 12:09 PM EDT Performed at: 01 - [facility] [address] [place], [place] [id number] Floor Layer Helper: Konstantin Da Silva PhD, Phone: [phone] Lor Harrison APRN LAB BLOOD ORDERABLES Final R esult [facility] [address] [place] [address], [facility] [address] [place] [address], * Mammo Screening Digital Tomosynthesis Bilateral With [...] Maintenance Insurance [employer] MED[employer] ADVANTAGE Care Teams R Programmer Relationship Specialty Start Date End Date Dionte Archibald APRN [address] [facility] [address] [place] [phone] PCP - General Family Medicine 11/16/20
--- OUTSIDE RECORDS SUMMARY | 2025-03-05 14:16 | XMS_ITS | Clinical Summary ---
Author Organization [facility] Address [address] [place] [address] Care Team Providers Care Fiber Picker Name Role Phone Unavailable Primary Care Provider [...] 2005 UKY-Zoster Vaccines (1 of 2) 2005 QZY-UREGH-50 Vaccine ( - 20 24-25 season) 2025 [...]
--- OUTSIDE RECORDS SUMMARY | 2025-03-05 14:16 | XMS_ITS | Encounter Summary ---
Author Organization [facility] Address [address] [place] [phone] Care Team Providers Care Employee Development Specialist Name Role Phone Archibald, Dionte Rhiannon WAREHOUSE SPECIALIST Primary Care Provider + Reason for Visit * Reason Onset Date Comments Med Refill 09/26/2021 Encounter Details Date Type Department Care Team (Late st Contact Info) Description 09/26/2021 Refill [facility] [address] [facility] [address] [place] [phone] Dionte Archibald, WAREHOUSE SPECIALIST [address] [facility] [address] [place] [address] Psoriasis with arthropathy Social History Tobacco Use [...] .Caller: PARTH Relationship: MARY Best call back number:[phone] Requested Prescriptions: Requested Prescriptions Pending Prescriptions Disp Refills ??? clobetasol (TEMOVATE) 0.05 % ointment 15 g 1 Sig: Apply topically to the appropriate area as directed See Admin Instructions. Apply topically tothe affected area twice daily Pharmacy where request should be sent: [id number] - [place], [place] - [address] [facility] [phone] [facility] [phone] FX Additional details provided by patient: N/A Does the patient have less than a 3 day supply: [x] Yes [x] No Scotty KWOK 09/26/21 12:59 EDT documented in this encounter Plan of Treatment Not on file documented as of this encounter Visit Diagnoses Diagnosis Psoriasis with arthropathy Psoriatic arthropathy documented in this encounter Care Teams Employee Development Specialist Relationship Specialty Start Date End Date Dionte Archibald APRN [address] [place] [id number] PCP - General Family Medicine 11/16/20 documented as of this encounter
--- NOTE | 2025-03-05 14:30 | CA_ITS ---
FINAL REPORT CLINICAL HISTORY: bilateral leg pain,hair loss,htn,morbid obesity FINDINGS: BILATERAL LOWER EXTREMITY DUPLEX DOPPLER Color Doppler and duplex Doppler of the bilateral lower extremity was performed. Spectral analysis was also performed. Velocities were measured at multiple levels. All velocities are in centimeters per second. RIGHT ICEBOX WORKER: 142 Prof: 76 SFA Prox: 108 SFA Mid: 96 SFA Distal: 74 Pop: 81 COMPOUNDING PHARMACY TECHNICIAN Prox: 115 COMPOUNDING PHARMACY TECHNICIAN Mid: 114 COMPOUNDING PHARMACY TECHNICIAN Dist: 125 Per Prox: 86 PARTH: 132 Waveforms are biphasic and triphasic LEFT ICEBOX WORKER: 141 Prof: 62 SFA Prox: 109 SFA Mid: 92 SFA Distal: 79 Pop: 79 COMPOUNDING PHARMACY TECHNICIAN Prox: 136 COMPOUNDING PHARMACY TECHNICIAN Mid: 115 COMPOUNDING PHARMACY TECHNICIAN Dist: 117 Per Prox: 83 PARTH: 133 Waveforms are biphasic and triphasic IMPRESSION: Waveforms are noted to be biphasic and triphasic. No levels of stenosis or occlusion are identified. Reviewed, Interpreted and Dictated by Ambrocio Olea MD Transcribed by Rosana Hudson Authenticated and [facility]
== END 2025-03-05 23:59 | disposition home or self-care (01) ==
LOC: RT 14:14
PROVIDERS: PCP Nurse Practitioner Family; Visit Provider Nurse Practitioner Family
DX: I73.9 Peripheral vascular disease, unspecified (principal); L65.9 Nonscarring hair loss, unspecified; E66.01 Morbid (severe) obesity due to excess calories; M79.604 Pain in right leg; M79.605 Pain in left leg; I10 Essential (primary) hypertension
CPT/HCPCS: 93925

== ENCOUNTER 2025-03-24 14:33 | Outpatient (CLI) | payer MEDICARE, SELFPAY ==
--- OUTSIDE RECORDS SUMMARY | 2025-03-24 14:36 | XMS_ITS | Data Portability ---
Author Organization [place] - [facility] and [facility] [place] Address [facility] [place] [address] Assessment No assessment recorded. Plan of Treatment Reminders Order Date Submit Date Provider Last Modified By Organization Details Last Modified Time Details Appointments OV EST 15 2025 01:00P M Radhames Botello Jr, MD Not available Not available Not available Lab urinalysi s, dipstick [address], [address], 02/19/2025 08:34:05 urinalysi s, dipstick [address], [address], 01/31/2023 09:26:57 urinalysi s, dipstick [address], [address], 12/21/2022 08:24:01 Referral None recorded. Procedures bladder scan (PROC) [address], [address], 10/31/2022 15:13:26 Surgeries None recorded. Imaging None recorded. Medication Orders Gemtesa 75 mg tablet 2024 025 [facility], [address], [place], [address], 02/17/2025 13:40:42 solifenac in 5 mg tablet 2024 025 [facility], [address], [place], [address], 02/17/2025 13:40:41 Gemtesa 75 mg tablet 2023 024 [place] [facility][id number], [address], [id number], 02/05/2024 13:27:58 solifenac in 5 mg tablet 2023 024 [place] [facility] #[id number], [address], [id number], 02/05/2024 13:27:58 Gemtesa 75 mg tablet 2022 023 [place] [facility] #[id number], [address], [id number], 01/30/2023 13:39:52 solifenac in 10 mg tablet 2022 023 [place] [facility] #[id number], [address], [id number], 12/19/2022 13:19:55 Patient TargetsNo targets recorded. Patient InstructionsNo instructions recorded. Reason for Referral None Reported. Results Created Date Observation Date Name Description Value Unit Range Abnormal Flag Note LastModifiedBy Organization Detail LastModifiedTime 11/01/1910/31/2022 bladd er scan (PROC ) Calculated Residual Urine: 16 Not Available [facility] [address], [place], [address], 10/31/2022 11:03:03 12/20/19 23 12/19/2022 urina lysis , dipst ick Leukocytes (reference range) small Not Available [address], [address], 12/19/2022 13:49:01 12/20/19 23 12/19/2022 urina lysis , dipst ick Nitrite (reference range:) negati ve Not Available [address], [address], 12/19/2022 13:49:01 12/20/19 23 12/19/2022 urina lysis , dipst ick Urobilinogen (reference range) 1 Not Available [address], [address], 12/19/2022 13:49:01 12/20/19 23 12/19/2022 urina lysis , dipst ick Protein (reference range) negati ve Not Available [address], [address], 12/19/2022 13:49:01 12/20/19 23 12/19/2022 urina lysis , dipst ick pH (reference range 5-8.5) 5.5 Not Available [address], [address], 12/19/2022 13:49:01 12/20/19 23 12/19/2022 urina lysis , dipst ick Blood (reference range:) hemoly zed: Trace Not Available [address], [address], 12/19/2022 13:49:01 12/20/19 23 12/19/2022 urina lysis , dipst ick Specific [place] (reference range) 1.015 Not Available [address], [address], 12/19/2022 13:49:01 12/20/19 23 12/19/2022 urina lysis , dipst ick Ketone (reference range) trace Not Available [address], [address], 12/19/2022 13:49:01 12/20/19 23 12/19/2022 urina lysis , dipst ick Bilirubin (reference range) negati ve Not Available [address], [address], 12/19/2022 13:49:01 12/20/19 23 12/19/2022 urina lysis , dipst ick Glucose (reference range) negati ve Not Available [address], [address], 12/19/2022 13:49:01 01/31/20 23 01/30/2023 urina lysis , dipst ick Leukocytes (reference range) trace Not Available [address], [address], 01/30/2023 13:36:03 01/31/20 23 01/30/2023 urina lysis , dipst ick Nitrite (reference range:) negati ve Not Available [address], [address], 01/30/2023 13:36:03 01/31/20 23 01/30/2023 urina lysis , dipst ick Urobilinogen (reference range) 1 Not Available [address], [address], 01/30/2023 13:36:03 01/31/20 23 01/30/2023 urina lysis , dipst ick Protein (reference range) 100 Not Available [address], [address], 01/30/2023 13:36:03 01/31/20 23 01/30/2023 urina lysis , dipst ick pH (reference range 5-8.5) 6.0 Not Available [address], [address], 01/30/2023 13:36:03 01/31/20 23 01/30/2023 urina lysis , dipst ick Blood (reference range:) hemoly zed: Trace Not Available [address], [address], 01/30/2023 13:36:03 01/31/20 23 01/30/2023 urina lysis , dipst ick Specific [place] (reference range) 1.030 Not Available [address], [address], 01/30/2023 13:36:03 01/31/20 23 01/30/2023 urina lysis , dipst ick Ketone (reference range) negati ve Not Available [address], [address], 01/30/2023 13:36:03 01/31/20 23 01/30/2023 urina lysis , dipst ick Bilirubin (reference range) small Not Available [address], [address], 01/30/2023 13:36:03 01/31/20 23 01/30/2023 urina lysis , dipst ick Glucose (reference range) negati ve Not Available [address], [address], 01/30/2023 13:36:03 02/18/20 25 02/17/2025 urina lysis , dipst ick Leukocytes (reference range) small Not Available [address] [place], [address], 02/17/2025 13:36:44 02/18/2002/17/2025 urina lysis , dipst ick Nitrite (reference range:) negati ve Not Available [address], [address], 02/17/2025 13:36:44 02/18/2002/17/2025 urina lysis , dipst ick Urobilinogen (reference range) 1 Not Available [address], [address], 02/17/2025 13:36:44 02/18/2002/17/2025 urina lysis , dipst ick Protein (reference range) 30 Not Available [address], [address], 02/17/2025 13:36:44 02/18/2002/17/2025 urina lysis , dipst ick pH (reference range 5-8.5) 5.5 Not Available [address], [address], 02/17/2025 13:36:44 02/18/2002/17/2025 urina lysis , dipst ick Blood (reference range:) non-He molyze d: Trace Not Available [address], [address], 02/17/2025 13:36:44 02/18/20 25 02/17/2025 urina lysis , dipst ick Specific [place] (reference range) 1.025 Not Available [address], [address], 02/17/2025 13:36:44 02/18/20 25 02/17/2025 urina lysis , dipst ick Ketone (reference range) trace Not Available [address], [address], 02/17/2025 13:36:44 02/18/2002/17/2025 urina lysis , dipst ick Bilirubin (reference range) small Not Available [address], [address], 02/17/2025 13:36:44 02/18/2002/17/2025 urina lysis , dipst ick Glucose (reference range) negati ve Not Available [address], [address], 02/17/2025 13:36:44 Result Notes None recorded. Problems Name Problem SNOMED Code Status Onset Date Resolution Date Notes Provider Name and Address Organization Details Recorded Time Hypertensive disorder 96494175 Active 2022 Ginomarco dodge, MARTHA - [facility] - [place] & [place] 3 10:37:24 Environmental allergy 108291107 Active 2022 Charo dodge, MARTHA - [facility] - [place] & [place] 3 10:37:30 Arthritis 6712319 Active 2022 Charo dodge[facility] MARTHA [facility] & [place] 3 10:37:37 Depressive disorder 35074934 Active 2022 Charo dodge, MARTHA - [facility] - [place] & [place] 3 10:37:43 Denture present 551405762 Active 2022 Charo dodge[facility] MARTHA [facility] & [place] 3 10:37:50 Problem Notes None recorded. Medical Equipment None Reported. Allergies No known drug allergies Medications Name Sig Start Date Stop Date Status Note LastModified by Organization Details LastModified Time nystatin 100,000 unit/mL oral suspension SWISH AND SWALLOW 5 ML BY MOUTH FOUR TIMES DAILY FOR 10 DAYS active Not Available Not Available No t Available ropinirole 1 mg tablet TAKE 1 TABLET BY MOUTH THREE TIMES DAILY active Not Available Not Available No t Available atorvastati n 10 mg tablet TAKE 1 TABLET BY MOUTH EVERY NIGHT AT BEDTIME FOR HIGH CHOLESTER OL active Not Available Not Available No t Available azithromyci n 250 mg tablet 10/31 completed Not Available Not Available Not Available valacyclovi r 1 gram tablet TAKE 1 TABLET BY MOUTH TWICE DAILY active Not Available Not Available No t Available meloxicam 15 mg tablet TAKE 1 TABLET BY MOUTH ONCE DAILY active Not Available Not Available No t Available prednisone 20 mg tablet TAKE 1 TABLET BY MOUTH TWICE DAILY FOR 5 DAYS 10/31 completed Not Available Not Available Not Available cyanocobala min (vit B-12) 1,000 mcg tablet TAKE ONE TABLET BY MOUTH ONCE DAILY active Not Available Not Available No t Available leflunomide 20 mg tablet active Not Available Not Available Not Available dexamethaso ne 0.5 mg/5 mL oral solution TAKE 5MLS BY MOUTH TWICE DAILY 10/31 completed Not Available Not Available Not Available methotrexat e sodium 2.5 mg tablet active Not Available Not Available Not Available benzonatate 100 mg capsule 10/31 completed Not Available Not Available Not Available ropinirole 2 mg tablet active Not Available Not Available Not Available cephalexin 500 mg capsule TAKE 1 CAPSULE BY MOUTH TWICE DAILY 10/31 completed Not Available Not Available Not Available nystatin 100,000 unit/gram topical cream APPLY TOPICALLY TO THE AFFECTED AREA TWICE DAILY active Not Available Not Available No t Available oxybutynin chloride ER 5 mg tablet,exte nded release 24 hr TAKE 1 TABLET BY MOUTH TWICE DAILY FOR 2 WEEKS active Not Available Not Available No t Available folic acid 1 mg tablet active Not Available Not Available Not Available mupirocin 2 % topical ointment APPLY A SMALL PEA SIZE AMOUNT TO THE AFFECTED AREA TOPICALLY 3 TIMES DAILY active Not Available Not Available No t Available clobetasol 0.05 % topical ointment APPLY TOPICALLY TO THE AFFECTED AREA TWICE DAILY DIRECTED active Not Available Not Available No t Available methylpredn isolone 4 mg tablets in a dose pack 10/31 completed Not Available Not Available Not Available albuterol sulfate HFA 90 mcg/actuati on aerosol inhaler INHALE 2 PUFFS BY MOUTH EVERY 4 TO 6 HOURS NEEDED FOR SHORTNESS OF BREATH OR WHEEZING 10/31 completed Not Available Not Available Not Available bromphenira mine-pseudo ephedrine-D M 2 mg-30 mg-10 mg/5 mL oral syrup TAKE 5 ML BY MOUTH EVERY 4 TO 6 HOURS NEEDED FOR COLD SYMPTOMS 10/31 completed Not Available Not Available Not Available clobetasol 0.05 % scalp solution APPLY TOPICALLY TO THE [place] TWICE DAILY IN THE MORNING AND IN THE EVENING active Not Available Not Available No t Available ondansetron 4 mg disintegrat ing tablet active Not Available Not Available N ot Available doxycycline hyclate 100 mg tablet TAKE 1 TABLET BY MOUTH TWICE DAILY FOR 10 DAYS 02/04 completed Not Available Not Available Not Available escitalopra m 10 mg tablet TAKE 1 TABLET BY MOUTH DAILY active Not Available Not Available No t Available solifenacin 5 mg tablet Take 1 tablet every day by oral route. 2024 active Not Available Not Available Not Avai lable solifenacin 10 mg tablet TAKE 1 TABLET BY MOUTH EVERY DAY 2024 active Not Available Not Available Not Avai lable Gas-X active Not Available Not Availa ble Not Available FeroSul 325 mg (65 mg iron) tablet TAKE ONE TABLET BY MOUTH ONCE DAILY active Not Available Not Available No t Available GaviLyte-G 236 gram-22.74 gram-6.74 gram-5.86 gram oral solution MIX AND DRINK 240ML BY MOUTH EVERY 10 MINUTES UNTIL FECAL EFFLUENT IS CLEAR. FOLLOW MAILED INSTRUCTI ONS active Not Available Not Available No t Available Cosentyx 150 mg/mL subcutaneou s syringe Inject 2 mL every 4 weeks by subcutane ous route. active Not Available Not Available No t Available Cosentyx Pen 300 mg/2 pens (150 mg/mL) subcutaneou s pen injector active Not Available Not Available Not Available Gemtesa 75 mg tablet TAKE 1 TABLET BY MOUTH EVERY DAY 2024 active Not Available Not Available Not Avai lable Flowflex COVID-19 Antigen Home Test kit TEST DIRECTED TODAY 10/31 completed Not Available Not Available Not Available Vitals Date Recorded Body temperature Provider Name a nd Address Organization Details Last Updated DateTime 12/19/2022 97.5 [degF] Charo [place]ences [place] [facility] [place] 12/19/2022 13:04:32 Date Recorded Body height Body temperature Provider N levon and Address Organization Details Last Updated DateTime 01/30/2023 167.64 cm 98.2 [degF] Charo Vences [place] - [facility] & [place] 01/30/2023 12:52:59 Date Recorded Body height Provider Name an d Address Organization Details Last Updated DateTime 02/05/2024 167.64 cm Nessa Lopez [place] - [facility] - [place] & [place] 02/05/2024 12:47:01 Date Recorded Body height Provider Name an d Address Organization Details Last Updated DateTime 02/17/2025 167.64 cm Nicolasa Downs [place] - [facility] & [place] 02/17/2025 13:11:32 Social History None recorded. Functional Status Question Answer Note LastModified by Organization D etails LastModified Time What is your level of alcohol consumption? None [email or web address] Information not available 10/31/2022 Mental Status None recorded. Family History Relationship Description Onset Age of this Age Resolved Age Notes LastModified by Organization Details LastModified Time Father Heart failure dec [email or web address] Not available 2022 10:38:09 Mother Family history unknown dec [email or web address] Not available 2022 10:38:27 Sister Family history unknown [email or web address] Not available 2022 10:38:27 Medical History No medical history recorded. Gynecological HistoryNo gynecological history recorded. Obstetrics History GPAL:G 0 P 0 0 0 0 Past Encounters Encounter ID Performer Location Encounter Start Date Encounter Closed Date Diagnosis/Indication Diagnosis SNOMED-CT Code Diagnosis ICD10 Code Diagnosis IMO Codes Diagnosis Note [id number] Radhames Botello Jr, MD [facility] [address] [address] 10/31/2022 09:57:05 10/31/2022 11:02:39 Urge incontinence of urine 85254737 N39.41 Patient with urge incontinen ce and urgency. She is entering her bladder out well and a urinalysis is within normal limits. We discussed treatment options and she was placed on Gemtesa. We also discussed timed voiding every 2-3 hours as well as decreasing her caffeine. We will see her back in 6 weeks in follow-up. [id number] Radhames Botello Jr, MD [facility] [address] [address] 12/19/2022 13:03:39 12/19/2022 13:20:21 Overactive urinary bladder 307617620 N32.81 Patient with no significan t improvemen t on the Gemtesa samples. We are going to add VESIcare 5 mg and see her back in 6 weeks. She is to change her coffee to de catheteriz ation and continue timed voiding. [id number] Radhames Botello Jr, MD [facility] [place] [address] 01/30/2023 12:47:26 01/30/2023 13:34:37 Urge incontinence of urine 27581345 N39.41 Patient has had significan t improvemen t with the addition of VESIcare 5 mg to her Gemtesa. We will continue both. [id number] Radhames Botello Jr, MD [place] [address] 5 02/05/2024 12:44:42 02/05/2024 13:28:37 Urge incontinence of urine 52808768 N39.41 Patient had improvemen t her incontinen ce with solifenaci n added to her Gemtesa. she states she ran out of the solifenaci n in his currently only on Gemtesa. Her leakage episodes are more often and discussed that we need to restart the solifenaci n plus the Gemtesa. [id number] Radhames Botello Jr, MD [place] [phone] 02/17/2025 13:04:59 02/17/2025 13:36:30 Urge incontinence of urine 67783269 N39.41 [id number] Patient continues to enjoy good control of her urge incontinen ce on Gemtesa and solifenaci n and we will refill today. She is also noticed that she does much better with no caffeine. Health Concerns Section Related Observation LastModified by Organization Detai ls LastModified Time None Recorded Concern Status LastModified by Organization Details LastModified Time None Recorded Advance Directives Directive None Recorded Payers Insurance Date Sequence Insurance Name Policy Number Policy Siddiqi Covered Member ID Siddiqi Member ID Guarantor Name 02/17/2025 1 [employer] (MEDICARE REPLACEMENT/ ADVANTAGE - HMO) Karrie Tobias [id number] Karrie Tobias 10/31/2022 1 [place] Karrie Tobias [id number] Karrie Tobias Notes Date Note Type Note Provider Name and Address Organization Details Recorded Time 10/31/2022 text/html Patient is a 67-year-old white female referred for urinary urgency. Patient states she has urinary urgency with sudden onset of leakage. She states that this routinely occurred as she steps out of her bed at night. She does get up at night 2-3 times. She has some occasional leakage during the day. She drinks 3-4 coffees per day. She is not on any medication for overactive bladder at this time. Her bladder scan today is 16 cc and her urinalysis is normal. Radhames Botello Jr, MD [address] [place] [address], [address], [address], [facility] & [place] 10/31/2022 12:31:09 12/19/2022 text/html ROS as noted in the HPI patient is a 67-year-old white female with history of urinary urgency and urge incontinence. Her last visit in October she was placed on samples of Gemtesa and she returns today follow-up. We had also discussed timed voiding and decreasing her caffeine. She returns today in routine follow-up. She states she has had no significant improvement on the Gemtesa. She is still drinking the coffee. We discussed going to decaf. Radhames Botello Jr, MD [address] [place] [address], [address], [address], [facility] & [place] 01/01/2023 11:08:34 01/30/2023 text/html ROS as noted in the HPI patient is a 67-year-old white female with a history of urinary urgency and urge incontinence. At her last visit 6 weeks ago VESIcare 5 mg was added to her Gemtesa. She states she is had significant improvement in her urge and urge incontinence. She continues to wear a pad at night but only for security. Radhames Botello Jr, MD [address] [place] [address], [address], [address], [facility] & [place] 01/30/2023 13:40:14 02/05/2024 text/html ROS as noted in the HPI patient is a 68-year-old white female with a history of urge incontinence. In her last visit 1 year ago she was on Gemtesa plus VESIcare with significant improvement in her urgency and urge incontinence. She states that she ran out of solifenacin in his only on Gemtesa at this moment. States that she is daytime frequency every 2 hours and gets up at night every 2 hours. She wears 1 pad at night and 1 during the day. Radhames Botello Jr, MD [address] [place] [address], [address], [place], [address], [facility] & [place] 02/05/2024 13:28:14 02/17/2025 text/html ROS as noted in the HPI Patient is a 69-year-old white female with a history of urge incontinence. She returns today for routine yearly checkup. She continues on Gemtesa and solifenacin and states good control. She wears 1 pad at night for security. Denies any new urologic problems. Radhames Botello Jr, MD [address], [address], [place], [address], [place] - [facility] & [place] 02/17/2025 13:41:24 OBGyn Episode No OBEpisode recorded.
--- OUTSIDE RECORDS SUMMARY | 2025-03-24 14:37 | XMS_ITS | Continuity of Care Document ---
Author Organization [place] - [facility], [facility] Address [address] [place] [phone] Assessment No assessment recorded. Plan of Treatment Reminders Order Date Submit Date Provider Last Modified By Organization Details Last Modified Time Details Appointments OV EST 15 2025 01:00P M Radhames Botello Jr, MD Not available Not available Not available Lab urinalysi s, dipstick 2024 025 [email or web address] [facility], [address] [place] [address], [phone], 02/19/2025 08:34:05 Referral None recorded. Procedures None recorded. Surgeries None recorded. Imaging None recorded. Medication Orders Gemtesa 75 mg tablet 2024 025 [facility], [address], [place], [address], 02/17/2025 13:40:42 solifenac in 5 mg tablet 2024 025 [facility], [address], [place], [address], 02/17/2025 13:40:41 Patient TargetsNo targets recorded. Patient InstructionsNo instructions recorded. Reason for Referral None Reported. Results Created Date Observation Date Name Description Value Unit Range Abnormal Flag Note LastModifiedBy Organization Detail LastModifiedTime 02/18/2002/17/2025 urina lysis , dipst ick Leukocytes (reference range) small Not Available [address] [place], [address], 02/17/2025 13:36:44 02/18/2002/17/2025 urina lysis , dipst ick Nitrite (reference range:) negati ve Not Available [address], [address], 02/17/2025 13:36:44 02/18/2002/17/2025 urina lysis , dipst ick Urobilinogen (reference range) 1 Not Available [address], [address], 02/17/2025 13:36:44 02/18/2002/17/2025 urina lysis , dipst ick Protein (reference range) 30 Not Available [address], [address], 02/17/2025 13:36:44 02/18/2002/17/2025 urina lysis , dipst ick pH (reference range 5-8.5) 5.5 Not Available [address], [address], 02/17/2025 13:36:44 02/18/2002/17/2025 urina lysis , dipst ick Blood (reference range:) non-He molyze d: Trace Not Available [address], [address], 02/17/2025 13:36:44 02/18/20 25 02/17/2025 urina lysis , dipst ick Specific [place] (reference range) 1.025 Not Available [address], [address], 02/17/2025 13:36:44 02/18/20 25 02/17/2025 urina lysis , dipst ick Ketone (reference range) trace Not Available [address], [address], 02/17/2025 13:36:44 02/18/2002/17/2025 urina lysis , dipst ick Bilirubin (reference range) small Not Available [address], [address], 02/17/2025 13:36:44 02/18/2002/17/2025 urina lysis , dipst ick Glucose (reference range) negati ve Not Available [address], [address], 02/17/2025 13:36:44 Result Notes None recorded. Problems Name Problem SNOMED Code Status Onset Date Resolution Date Notes Provider Name and Address Organization Details Recorded Time Hypertensive disorder 72724849 Active 2022 Ginomarco dodge, MARTHA - [facility] - [place] & [place] 3 10:37:24 Environmental allergy 448046479 Active 2022 Charo dodge, MARTHA - [facility] - [place] & [place] 3 10:37:30 Arthritis 8223968 Active 2022 Charo dodge, MARTHA - [facility] & [place] 3 10:37:37 Depressive disorder 83861048 Active 2022 Charo dodge, MARTHA - [facility] - [place] & [place] 3 10:37:43 Denture present 763863995 Active 2022 Charo dodge, MARTHA [facility] [place] 3 10:37:50 Problem Notes None recorded. Medical [...] Available Not Available Vitals Date Recorded Body height Provider Name an d Address Organization Details Last Updated DateTime 02/17/2025 167.64 cm Nicolasa [facility] - [place] & [place] 02/17/2025 13:11:32 Social History None recorded. Functional Status Question Answer Note LastModified by Organization D etails LastModified Time What is your level of alcohol consumption? None [email or web address] Information not available 10/31/2022 Mental Status None recorded. Family History Relationship Description Onset Age of this Age Resolved Age Notes LastModified by Organization Details LastModified Time Father Heart failure dec Not available 2022 10:38:09 Mother Family history unknown dec [email or web address] Not available 2022 10:38:27 Sister Family history unknown [email or web address] Not available 2022 10:38:27 Medical History No medical history recorded. Gynecological HistoryNo gynecological history recorded. Obstetrics History GPAL:G 0 P 0 0 0 0 Past Encounters Encounter ID Performer Location Encounter Start Date Encounter Closed Date Diagnosis/Indication Diagnosis SNOMED-CT Code Diagnosis ICD10 Code Diagnosis IMO Codes Diagnosis Note [id number] Radhames Botello Jr, MD [facility] Urology [address] [address] 02/17/2025 13:04:59 02/17/2025 13:36:30 Urge incontinence of urine 92503295 N39.41 [id number] Patient continues to enjoy good control of her urge incontinen ce on Gemtesa and solifenaci n and we will refill today. She is also noticed that she does much better with no caffeine. Health Concerns Section Related Observation LastModified by Organization Detai ls LastModified Time None Recorded Concern Status LastModified by Organization Details LastModified Time None Recorded Payers Encounter Date Sequence Insurance Name Policy Number Policy Siddiqi Covered Member ID Siddiqi Member ID Guarantor Name 02/17/2025 1 [employer] (MEDICARE REPLACEMENT/ ADVANTAGE - HMO) Karrie Tobias [id number] Karrie Tobias Notes Date Note Type Note Provider Name and Address Organization Details Recorded Time 02/17/2025 text/html ROS as noted in the HPI Patient is a 69-year-old white female with a history of urge incontinence. She returns today for routine yearly checkup. She continues on Gemtesa and solifenacin and states good control. She wears 1 pad at night for security. Denies any new urologic problems. Radhames Botello Jr, MD [address] [place] [address], [address], [place], [address], [facility] & [place] 02/17/2025 13:41:24 OBGyn Episode No OBEpisode recorded.
--- OUTSIDE RECORDS SUMMARY | 2025-03-24 14:37 | XMS_ITS | Data Portability ---
Author Organization [place] Address [address] [facility] [address] [place] [address] Care Team Providers Care Lending Consultant Name Role Phone JAD MCINTYRE Primary Care Provider Assessment Encounter Date Assessment Date Assessment LastModified by Organization Details LastModified Time 03/23/2025 03/23/2025 - 69-year-old female with a history of psoriatic arthritis presenting for follow up. - Psoriatic arthritis: The patient is currently on Skyrizi and methotrexate, with consideration to discontinue methotrexate to evaluate the efficacy of Skyrizi alone. - Restless legs syndrome: Managed with ropinirole, which causes gastrointestinal discomfort, indicating a need for potential alternative therapies. - Psoriasis: Immunosuppression and topical therapies. She also takes doxycycline during flares indicating that flares may be multifactorial. [email or web address] Not available 03/24/2025 06:23:48 Plan of Treatment Reminders Order Date Submit Date Provider Last Modified By Organization Details Last Modified Time Details Appointments None recorded. Lab Mycobacteri um tuberculosi s stimulated gamma interferon, qual, blood 2024 025 [facility], [address] [place] [address], [id number], 5 17:30:17 CBC w/ auto diff 2024 025 [facility], [address] [place] [address], [id number], 10:07:33 creatinine, serum or plasma 2024 025 [facility], [address] [place] [address], [id number], 5 10:32:12 ALT (alanine aminotransf erase), serum or plasma 2024 025 [facility], [address] [place] [address], [id number], 5 10:32:15 AST/SGOT (aspartate aminotransf erase), serum or plasma 2024 025 [facility], [address] [place] [address], [id number], 5 10:32:14 CBC w/ auto diff 2023 024 [facility], [address] [place] [address], [id number], 4 15:49:55 creatinine, serum or plasma 2023 024 [facility], [address] [place] [address], [address], 4 17:31:28 ALT (alanine aminotransf erase), serum or plasma 2023 024 [facility], [address] [place] [address], [id number], 4 17:31:26 AST/SGOT (aspartate aminotransf erase), serum or plasma 2023 024 [facility], [address] [place] [address], [id number], 4 17:31:30 CBC w/ auto diff 2023 024 [facility], [address] [place] [address], [address], 4 17:26:25 creatinine, serum or plasma 2023 024 [facility], [address] [place] [address], [address], 4 17:41:37 ALT (alanine aminotransf erase), serum or plasma 2023 024 [facility], [address] [place] [address], [address], 4 17:41:35 AST/SGOT (aspartate aminotransf erase), serum or plasma 2023 024 [facility], [address] [place] [address], [id number], 4 17:41:39 Mycobacteri um tuberculosi s stimulated gamma interferon, qual, blood 2023 024 [facility], [address] [place] [address], [address], 4 15:54:30 CBC w/ auto diff 2023 024 [facility], [address] [place] [address], [id number], 4 16:38:23 creatinine, serum or plasma 2023 024 [facility], [address] [place] [address], [id number], 4 16:54:25 ALT (alanine aminotransf erase), serum or plasma 2023 024 [facility], [address] [place] [address], [id number], 4 16:54:23 AST/SGOT (aspartate aminotransf erase), serum or plasma 2023 024 [facility], [address] [place] [address] [place], [address], 16:54:27 Referral None recorded. Procedures None recorded. Surgeries None recorded. Imaging None recorded. Medication Orders Skyrizi 150 mg/mL subcutaneou s pen injector 2024 025 [facility], [address], [place], [address], 16:31:04 meloxicam 15 mg tablet 2024 [facility], [address], [place], [address], 16:31:03 clobetasol 0.05 % topical ointment 2024 025 [facility], [address], [place], [address], 16:31:01 ropinirole 2 mg tablet 2024 025 [facility], [address], [place], [address], 16:31:01 methotrexat e sodium 2.5 mg tablet 2024 025 [email or web address] 7 [facility], [address], [place], [address], 16:29:03 folic acid 1 mg tablet 2024 025 [email or web address] [facility], [address], [place], [address], 16:28:59 Skyrizi 150 mg/mL subcutaneou s pen injector 2024 025 [facility], [address], [place], [address], 03/19/202 5 09:11:50 meloxicam 15 mg tablet 2024 025 [facility], [address], [place], [address], 5 09:11:56 valacyclovi r 1 gram tablet 2024 025 [facility], [address], [place], [address], 5 09:11:48 ropinirole 2 mg tablet 2024 025 [facility], [address], [place], [address], 5 09:11:56 clobetasol 0.05 % shampoo 2023 024 [facility] #25807, [address], [id number], 4 15:01:25 clobetasol 0.05 % scalp solution 2023 024 [facility] #66316, [address], [id number], 4 15:01:24 valacyclovi r 1 gram tablet 2023 024 [facility], [address], [place], [address], 4 15:01:21 ropinirole 2 mg tablet 2023 024 [facility], [address], [place], [address], 4 15:01:19 Cosentyx Pen 300 mg/2 pens (150 mg/mL) subcutaneou s pen injector 2023 024 [facility], [address], [place], [address], 5 14:26:25 methotrexat e sodium 2.5 mg tablet 2023 [email or web address] [facility], [address], [place], [address], 16:29:03 folic acid 1 mg tablet 2023 [email or web address] 7 [facility], [address], [place], [address], 16:28:59 Skyrizi 150 mg/mL subcutaneou s pen injector 2023 [facility], [address], [place], [address], 4 15:01:20 Skyrizi 150 mg/mL subcutaneou s pen injector 2023 [facility], [address], [place], [address], 4 15:01:20 meloxicam 15 mg tablet 2023 [facility], [address], [place], [address], 4 15:04:21 ondansetron 4 mg disintegrat ing tablet 2023 [email or web address] [facility], [address], [place], [address], 5 08:45:52 clobetasol 0.05 % shampoo 2023 [place] [facility] #90052, [address], [id number], 4 16:21:22 clobetasol 0.05 % scalp solution 2023 [place] [facility] #38734, [address] [address] [place], [id number], 4 16:21:19 valacyclovi r 1 gram tablet 2023 [facility], [address], [place], [address], 4 16:18:03 ropinirole 2 mg tablet 2023 [facility], [address], [place], [address], 4 16:18:01 Cosentyx Pen 300 mg/2 pens (150 mg/mL) subcutaneou s pen injector 2023 [facility], [address], [place], [address], 5 09:07:39 clobetasol 0.05 % topical ointment 2023 [facility], [address], [place], [address], 4 16:18:05 methotrexat e sodium 2.5 mg tablet 2023 024 [email or web address] [address] [facility], [address], [place], [address], 5 16:29:03 folic acid 1 mg tablet [email or web address] [facility], [address], [place], [address], 5 16:28:59 Depo-Medrol 80 mg/mL suspension for injection 2023 [email or web address] Not available 5 16:28:34 doxycycline hyclate 100 mg tablet 2023 [email or web address] [facility] #34020, [address] [address] [address], [place], [id number], 5 16:28:20 mupirocin 2 % topical ointment 2023 024 [facility] #39379, [address] [address] [address], [place], [id number], 4 16:22:32 ondansetron 4 mg disintegrat ing tablet 2023 [facility], [address], [place], [address], 4 16:18:06 clobetasol 0.05 % shampoo 2023 024 [facility] #63346, [address] [address] [address], [place], [id number], 4 15:27:19 clobetasol 0.05 % scalp solution 2023 024 [facility] #51048, [address] [address] [address], [place], [id number], 4 15:27:18 valacyclovi r 1 gram tablet 2023 024 [facility], [address], [place], [address], 4 15:23:41 ropinirole 2 mg tablet 2023 024 [facility], [address], [place], [address], 4 15:23:41 Cosentyx Pen 300 mg/2 pens (150 mg/mL) subcutaneou s pen injector 2023 [facility], [address], [place], [address], 5 09:07:39 clobetasol 0.05 % topical ointment 2023 024 [facility], [address], [place], [address], 4 15:23:41 methotrexat e sodium 2.5 mg tablet [address] [facility], [address], [place], [address], 5 16:29:03 folic acid 1 mg tablet [email or web address] [facility], [address], [place], [address], 5 16:28:59 Depo-Medrol 80 mg/mL suspension for injection 2023 024 [id number] Not available 16:28:34 ondansetron 4 mg disintegrat ing tablet 2023 024 [facility], [address], [place], [address], 4 15:23:42 Patient TargetsNo targets recorded. Patient Instructions Encounter Date Encounter Id Patient Instructions Last Modified By Organization Details Last Modified Time 10/11/2023 [id number] medical record request* - labs from Dr. Owens on 06/2023 [email or web address] Not available 10/21/2023 08:41:20 03/23/2025 [id number] medical record request* - Please send last labs [email or web address] Not available 03/24/2025 09:05:22 - Continue timmy Krishna every three months. - Monitor symptoms and restart methotrexate if pain or psoriasis worsens. - Discuss alternative treatments for restless legs syndrome with your primary care physician. - Use clobetasol ointment during psoriasis flare-ups. [email or web address] Not available 03/23/2025 16:35:14 Reason for Referral None Reported. Results Created Date Observation Date Name Description Value Unit Range Abnormal Flag Note LastModifiedBy Organization Detail LastModifiedTime 10/11/19 24 10/11/2023 COMPL ETE BLOOD COUNT white blood cells 3.6 10*3/ uL 3.8-10 .8 low Not Available [facility] [address] [place] [address], [address], 10/11/2023 16:38:22 10/11/19 24 10/11/2023 COMPL ETE BLOOD COUNT red blood cells 4.16 10*6/ uL 3.80-5 .20 normal Not Available [facility] [address] [place] [address], [address], 10/11/2023 16:38:22 10/11/19 24 10/11/2023 COMPL ETE BLOOD COUNT hemoglobin 12.9 g/dL 12.0-1 6.0 normal Not Available [facility] [address] [place] [address], [address], 10/11/2023 16:38:22 10/11/19 24 10/11/2023 COMPL ETE BLOOD COUNT hematocrit 38.8 % 35.0-4 7.0 normal Not Available [facility] [address] [place] [address], [address], 10/11/2023 16:38:22 10/11/19 24 10/11/2023 COMPL ETE BLOOD COUNT MCV 93 fL 80-100 normal Not Available [facility] [address] [place] [address], [address], 10/11/2023 16:38:22 10/11/19 24 10/11/2023 COMPL ETE BLOOD COUNT MCH 31 pg 26-35 normal Not Available [facility] [address] [place] [address], [address], 10/11/2023 16:38:22 10/11/19 24 10/11/2023 COMPL ETE BLOOD COUNT MCHC 33 g/dL 32-36 normal Not Available [facility] [address] [place] [address], [address], 10/11/2023 16:38:22 10/11/19 24 10/11/2023 COMPL ETE BLOOD COUNT RDW 14.1 % 11.0-1 5.0 normal Not Available [facility] [address] [place] [address], [address], 10/11/2023 16:38:22 10/11/19 24 10/11/2023 COMPL ETE BLOOD COUNT MPV 9.0 fL 6.2-10 .5 normal Not Available [facility] [address] [place] [address], [address], 10/11/2023 16:38:22 10/11/19 24 10/11/2023 COMPL ETE BLOOD COUNT platelet count 209 10*3/ uL 150-40 0 normal Not Available [facility] [address] [place] [address], [address], 10/11/2023 16:38:22 10/11/19 24 10/11/2023 COMPL ETE BLOOD COUNT neutrophil,a bsolute 2.3 10*3/ uL 1.6-8. 4 normal Not Available [facility] [address] [place] [address], [address], 10/11/2023 16:38:22 10/11/19 24 10/11/2023 COMPL ETE BLOOD COUNT lymphocyte,a bsolute 0.8 10*3/ uL 0.4-5. 1 normal Not Available [facility] [address] [place] [address], [address], 10/11/2023 16:38:22 10/11/19 24 10/11/2023 COMPL ETE BLOOD COUNT monocyte,abs olute 0.3 10*3/ uL 0.0-1. 2 normal Not Available [facility] [address] [place] [address], [address], 10/11/2023 16:38:22 10/11/19 24 10/11/2023 COMPL ETE BLOOD COUNT eosinophil,a bsolute 0.1 10*3/ uL 0.0-0. 8 normal Not Available [facility] [address] [place] [address], [address], 10/11/2023 16:38:22 10/11/19 24 10/11/2023 COMPL ETE BLOOD COUNT basophil,abs olute 0.0 10*3/ uL 0.0-0. 3 normal Not Available [facility] [address] [place] [address], [address], 10/11/2023 16:38:22 10/11/19 24 10/11/2023 COMPL ETE BLOOD COUNT % neutrophils 63.7 % 42.0-7 8.0 normal Not Available [facility] [address] [place] [address], [address], 10/11/2023 16:38:22 10/11/19 24 10/11/2023 COMPL ETE BLOOD COUNT % lymphocytes 22.5 % 11.0-4 7.0 normal Not Available [facility] [address] [place] [address], [address], 10/11/2023 16:38:22 10/11/19 24 10/11/2023 COMPL ETE BLOOD COUNT % monocytes 9.7 % 0.0-11 .0 normal Not Available [facility] [address] [place] [address], [address], 10/11/2023 16:38:22 10/11/19 24 10/11/2023 COMPL ETE BLOOD COUNT % eosinophils 3.1 % 0.0-7. 0 normal Not Available [facility] [address] [place] [address], [address], 10/11/2023 16:38:22 10/11/19 24 10/11/2023 COMPL ETE BLOOD COUNT % basophils 1.0 % 0.0-3. 0 normal Not Available [facility] [address] [place] [address], [address], 10/11/2023 16:38:22 10/11/19 24 10/11/2023 COMPL ETE BLOOD COUNT nucleated red cells 0.1 % 0.0-0. 9 normal Not Available [facility] [address] [place] [address], [address], 10/11/2023 16:38:22 10/11/19 24 10/11/2023 COMPL ETE BLOOD COUNT nucleated RBCs, absolute 0.00 10*3/ uL not estab. normal Not Available [facility] [address] [place] [address], [address], 10/11/2023 16:38:22 10/11/19 24 10/11/2023 ALT ALT 13 U/L 0-33 normal Not Available [facility] [address] [place] [address], [address], 10/11/2023 16:54:23 10/11/19 24 10/11/2023 CREAT ININE creatinine 0.70 mg/dL 0.50-0 .95 normal Not Available [facility] [address] [place] [address], [address], 10/11/2023 16:54:25 10/11/19 24 10/11/2023 AST AST 22 U/L 0-32 normal Not Available [facility] [address] [place] [address], [address], 10/11/2023 16:54:27 10/11/19 24 10/14/2023 QUANT IFERO N TB GOLD qtb gold NEGATI VE negati ve normal Negat penny test resul t. M. tuber culos is compl ex infec tion unlik lyn. Not Available [facility] [address] [place], [address], 10/14/2023 15:54:30 10/11/19 24 10/14/2023 QUANT IFERO N TB GOLD nil 0.02 IU/mL normal Not Available [facility] [address] [place] [address], [address], 10/14/2023 15:54:30 10/11/19 24 10/14/2023 QUANT IFERO N TB GOLD mitogen nil 2.72 IU/mL normal Not Available [facility] [address] [place], [address], 10/14/2023 15:54:30 10/11/19 24 10/14/2023 QUANT IFERO N TB GOLD TB1 nil <0.00 IU/mL normal Not Available [facility] [address] [place], [address], 10/14/2023 15:54:30 10/11/19 24 10/14/2023 QUANT IFERO N TB GOLD TB2 nil <0.00 IU/mL normal The Nil tube value refle cts the backg round inter feron gamma immun e respo nse of the patie nt's blood sampl e. This value has been subtr acted from the patie nt's displ ayed TB and Mitog en resul ts. Lower than expec moncho resul ts with the Mitog en tube preve nt false -nega tive Quant ifero n readi ngs by detec ting a patie nt with a poten tial immun e suppr essiv e condi tion and/o r subop timal pre-a nalyt ical speci men handl ing. The TB1 Antig en tube is coate d with the M. tuber culos is-sp ecifi c antig ens desig carla to elici t respo nses from TB antig en prime d CD4+ helpe r T-lym phocy malick. The TB2 Antig en tube is coate d with the M. tuber culos is-sp ecifi c antig ens desig carla to elici t respo nses from TB antig en prime d CD4+ helpe r and CD8+ cytot oxic T-lym phocy malick. For addit ional infor estefania toure refer to https ://ed christopherati on.qu chikis deandreBabyBus. [employer]/f aq/FA Q204 (This link is being provi ded for infor mercedes wise/ luana morton purpo ses only. ) Not Available [facility] [address] [place] [address], [address], 10/14/2023 15:54:30 01/17/2001/17/2024 COMPL ETE BLOOD COUNT white blood cells 3.5 10*3/ uL 3.8-10 .8 low Not Available [facility] [address] [place] [address], [address], 01/17/2024 17:26:25 01/17/20 24 01/17/2024 COMPL ETE BLOOD COUNT red blood cells 4.18 10*6/ uL 3.80-5 .20 normal Not Available [facility] [address] [place] [address], [address], 01/17/2024 17:26:25 01/17/20 24 01/17/2024 COMPL ETE BLOOD COUNT hemoglobin 13.0 g/dL 12.0-1 6.0 normal Not Available [facility] [address] [place] [address], [address], 01/17/2024 17:26:25 01/17/2001/17/2024 COMPL ETE BLOOD COUNT hematocrit 38.9 % 35.0-4 7.0 normal Not Available [facility] [address] [place] [address], [address], 01/17/2024 17:26:25 01/17/2001/17/2024 COMPL ETE BLOOD COUNT MCV 93 fL 80-100 normal Not Available [facility] [address] [place] [address], [address], 01/17/2024 17:26:25 01/17/20 24 01/17/2024 COMPL ETE BLOOD COUNT MCH 31 pg 26-35 normal Not Available [facility] [address] [place] [address], [address], 01/17/2024 17:26:25 01/17/20 24 01/17/2024 COMPL ETE BLOOD COUNT MCHC 34 g/dL 32-36 normal Not Available [facility] [address] [place] [address], [address], 01/17/2024 17:26:25 01/17/20 24 01/17/2024 COMPL ETE BLOOD COUNT RDW 15.3 % 11.0-1 5.0 high Not Available [facility] [address] [place] [address], [address], 01/17/2024 17:26:25 01/17/20 24 01/17/2024 COMPL ETE BLOOD COUNT MPV 8.2 fL 6.2-10 .5 normal Not Available [facility] [address] [place] [address], [address], 01/17/2024 17:26:25 01/17/20 24 01/17/2024 COMPL ETE BLOOD COUNT platelet count 222 10*3/ uL 150-40 0 normal Not Available [facility] [address] [place] [address], [address], 01/17/2024 17:26:25 01/17/20 24 01/17/2024 COMPL ETE BLOOD COUNT neutrophil,a bsolute 2.4 10*3/ uL 1.6-8. 4 normal Not Available [facility] [address] [place] [address], [address], 01/17/2024 17:26:25 01/17/20 24 01/17/2024 COMPL ETE BLOOD COUNT lymphocyte,a bsolute 0.8 10*3/ uL 0.4-5. 1 normal Not Available [facility] [address] [place] [address], [address], 01/17/2024 17:26:25 01/17/20 24 01/17/2024 COMPL ETE BLOOD COUNT monocyte,abs olute 0.2 10*3/ uL 0.0-1. 2 normal Not Available [facility] [address] [place] [address], [address], 01/17/2024 17:26:25 01/17/20 24 01/17/2024 COMPL ETE BLOOD COUNT eosinophil,a bsolute 0.1 10*3/ uL 0.0-0. 8 normal Not Available [facility] [address] [place] [address], [address], 01/17/2024 17:26:25 01/17/20 24 01/17/2024 COMPL ETE BLOOD COUNT basophil,abs olute 0.0 10*3/ uL 0.0-0. 3 normal Not Available [facility] [address] [place] [address], [address], 01/17/2024 17:26:25 01/17/20 24 01/17/2024 COMPL ETE BLOOD COUNT % neutrophils 69.7 % 42.0-7 8.0 normal Not Available [facility] [address] [place] [address], [address], 01/17/2024 17:26:25 01/17/20 24 01/17/2024 COMPL ETE BLOOD COUNT % lymphocytes 22.1 % 11.0-4 7.0 normal Not Available [facility] [address] [place] [address], [address], 01/17/2024 17:26:25 01/17/20 24 01/17/2024 COMPL ETE BLOOD COUNT % monocytes 5.6 % 0.0-11 .0 normal Not Available [facility] [address] [place] [address], [address], 01/17/2024 17:26:25 01/17/20 24 01/17/2024 COMPL ETE BLOOD COUNT % eosinophils 1.6 % 0.0-7. 0 normal Not Available [facility] [address] [place] [address], [address], 01/17/2024 17:26:25 01/17/20 24 01/17/2024 COMPL ETE BLOOD COUNT % basophils 1.0 % 0.0-3. 0 normal Not Available [facility] [address] [place] [address], [address], 01/17/2024 17:26:25 01/17/20 24 01/17/2024 COMPL ETE BLOOD COUNT nucleated red cells 0.1 % 0.0-0. 9 normal Not Available [facility] [address] [place] [address], [address], 01/17/2024 17:26:25 01/17/20 24 01/17/2024 COMPL ETE BLOOD COUNT nucleated RBCs, absolute 0.00 10*3/ uL not estab. normal Not Available [facility] [address] [place] [address], [address], 01/17/2024 17:26:25 01/17/20 24 01/17/2024 ALT ALT 14 U/L 0-33 normal Not Available [facility] [address] [place] [address], [address], 01/17/2024 17:41:35 01/17/20 24 01/17/2024 CREAT ININE creatinine 0.86 mg/dL 0.50-0 .95 normal Not Available [facility] [address] [place] [address], [address], 01/17/2024 17:41:37 01/17/20 24 01/17/2024 AST AST 22 U/L 0-32 normal Not Available [facility] [address] [place] [address], [address], 01/17/2024 17:41:39 04/14/20 24 04/14/2024 COMPL ETE BLOOD COUNT white blood cells 3.3 10*3/ uL 3.8-10 .8 low Not Available [facility] [address] [place] [address], [address], 04/14/2024 15:49:55 04/14/20 24 04/14/2024 COMPL ETE BLOOD COUNT red blood cells 3.85 10*6/ uL 3.80-5 .20 normal Not Available [facility] [address] [place] [address], [address], 04/14/2024 15:49:55 04/14/20 24 04/14/2024 COMPL ETE BLOOD COUNT hemoglobin 12.7 g/dL 12.0-1 6.0 normal Not Available [facility] [address] [place] [address], [address], 04/14/2024 15:49:55 04/14/20 24 04/14/2024 COMPL ETE BLOOD COUNT hematocrit 38.1 % 35.0-4 7.0 normal Not Available [facility] [address] [place] [address], [id number], 04/14/2024 15:49:55 04/14/20 24 04/14/2024 COMPL ETE BLOOD COUNT MCV 99 fL 80-100 normal Not Available [facility] [address] [place] [address], [phone], 04/14/2024 15:49:55 04/14/20 24 04/14/2024 COMPL ETE BLOOD COUNT MCH 33 pg 26-35 normal Not Available [facility] [address] [place] [address], [phone], 04/14/2024 15:49:55 04/14/20 24 04/14/2024 COMPL ETE BLOOD COUNT MCHC 33 g/dL 32-36 normal Not Available [facility] [address] [place] [address], [address], 04/14/2024 15:49:55 04/14/20 24 04/14/2024 COMPL ETE BLOOD COUNT RDW 17.4 % 11.0-1 5.0 high Not Available [facility] [address] [place] [address], [id number], 04/14/2024 15:49:55 04/14/20 24 04/14/2024 COMPL ETE BLOOD COUNT MPV 8.6 fL 6.2-10 .5 normal Not Available [facility] [address] [place] [address], [address], 04/14/2024 15:49:55 04/14/20 24 04/14/2024 COMPL ETE BLOOD COUNT platelet count 229 10*3/ uL 150-40 0 normal Not Available [facility] [address] [place] [address], [address], 04/14/2024 15:49:55 04/14/20 24 04/14/2024 COMPL ETE BLOOD COUNT neutrophil,a bsolute 2.1 10*3/ uL 1.6-8. 4 normal Not Available [facility] [address] [place] [address], [address], 04/14/2024 15:49:55 04/14/20 24 04/14/2024 COMPL ETE BLOOD COUNT lymphocyte,a bsolute 0.7 10*3/ uL 0.4-5. 1 normal Not Available [facility] [address] [place] [address], [address], 04/14/2024 15:49:55 04/14/20 24 04/14/2024 COMPL ETE BLOOD COUNT monocyte,abs olute 0.4 10*3/ uL 0.0-1. 2 normal Not Available [facility] [address] [place] [address], [address], 04/14/2024 15:49:55 04/14/20 24 04/14/2024 COMPL ETE BLOOD COUNT eosinophil,a bsolute 0.1 10*3/ uL 0.0-0. 8 normal Not Available [facility] [address] [place] [address], [address], 04/14/2024 15:49:55 04/14/20 24 04/14/2024 COMPL ETE BLOOD COUNT basophil,abs olute 0.0 10*3/ uL 0.0-0. 3 normal Not Available [facility] [address] [place] [address], [phone], 04/14/2024 15:49:55 04/14/20 24 04/14/2024 COMPL ETE BLOOD COUNT % neutrophils 62.9 % 42.0-7 8.0 normal Not Available [facility] [address] [place] [address], [address], 04/14/2024 15:49:55 04/14/20 24 04/14/2024 COMPL ETE BLOOD COUNT % lymphocytes 20.5 % 11.0-4 7.0 normal Not Available [facility] [address] [place] [address], [phone], 04/14/2024 15:49:55 04/14/20 24 04/14/2024 COMPL ETE BLOOD COUNT % monocytes 12.5 % 0.0-11 .0 high Not Available [facility] [address] [place] [address], [address], 04/14/2024 15:49:55 04/14/20 24 04/14/2024 COMPL ETE BLOOD COUNT % eosinophils 2.7 % 0.0-7. 0 normal Not Available [facility] [address] [place] [address], [address], 04/14/2024 15:49:55 04/14/20 24 04/14/2024 COMPL ETE BLOOD COUNT % basophils 1.4 % 0.0-3. 0 normal Not Available [facility] [address] [place] [address], [address], 04/14/2024 15:49:55 04/14/20 24 04/14/2024 COMPL ETE BLOOD COUNT nucleated red cells 0.1 % 0.0-0. 9 normal Not Available [facility] [address] [place] [address], [phone], 04/14/2024 15:49:55 04/14/20 24 04/14/2024 COMPL ETE BLOOD COUNT nucleated RBCs, absolute 0.00 10*3/ uL not estab. normal Not Available [facility] [address] [place] [address], [address], 04/14/2024 15:49:55 04/14/20 24 04/14/2024 ALT ALT 12 U/L 0-33 normal Not Available [facility] [address] [place] [address], [phone], 04/14/2024 17:31:26 04/14/20 24 04/14/2024 CREAT ININE creatinine 0.82 mg/dL 0.50-0 .95 normal Not Available [facility] [address] [place] [address], [address], 04/14/2024 17:31:28 04/14/20 24 04/14/2024 AST AST 18 U/L 0-32 normal Not Available [facility] [address] [place] [address], [address], 04/14/2024 17:31:30 08/27/19 25 08/26/2024 COMPL ETE BLOOD COUNT white blood cells 4.0 10*3/ uL 3.8-10 .8 normal Not Available [facility] [address] [place] [address], [address], 08/26/2024 10:07:33 08/27/19 25 08/26/2024 COMPL ETE BLOOD COUNT red blood cells 3.86 10*6/ uL 3.80-5 .20 normal Not Available [facility] [address] [place] [address], [address], 08/26/2024 10:07:33 08/27/19 25 08/26/2024 COMPL ETE BLOOD COUNT hemoglobin 11.8 g/dL 12.0-1 6.0 low Not Available [facility] [address] [place] [address], [address], 08/26/2024 10:07:33 08/27/19 25 08/26/2024 COMPL ETE BLOOD COUNT hematocrit 35.1 % 35.0-4 7.0 normal Not Available [facility] [address] [place] [address], [address], 08/26/2024 10:07:33 08/27/19 25 08/26/2024 COMPL ETE BLOOD COUNT MCV 91 fL 80-100 normal Not Available [facility] [address] [place] [address], [address], 08/26/2024 10:07:33 08/27/19 25 08/26/2024 COMPL ETE BLOOD COUNT MCH 31 pg 26-35 normal Not Available [facility] [address] [place] [address], [address], 08/26/2024 10:07:33 08/27/19 25 08/26/2024 COMPL ETE BLOOD COUNT MCHC 34 g/dL 32-36 normal Not Available [facility] [address] [place] [address], [address], 08/26/2024 10:07:33 08/27/19 25 08/26/2024 COMPL ETE BLOOD COUNT RDW 17.9 % 11.0-1 5.0 high Not Available [facility] [address] [place] [address], [address], 08/26/2024 10:07:33 08/27/19 25 08/26/2024 COMPL ETE BLOOD COUNT MPV 8.7 fL 6.2-10 .5 normal Not Available [facility] [address] [place] [address], [address], 08/26/2024 10:07:33 08/27/19 25 08/26/2024 COMPL ETE BLOOD COUNT platelet count 245 10*3/ uL 150-40 0 normal Not Available [facility] [address] [place] [address], [address], 08/26/2024 10:07:33 08/27/19 25 08/26/2024 COMPL ETE BLOOD COUNT neutrophil,a bsolute 2.7 10*3/ uL 1.6-8. 4 normal Not Available [facility] [address] [place] [address], [address], 08/26/2024 10:07:33 08/27/19 25 08/26/2024 COMPL ETE BLOOD COUNT lymphocyte,a bsolute 0.8 10*3/ uL 0.4-5. 1 normal Not Available [facility] [address] [place] [address], [address], 08/26/2024 10:07:33 08/27/19 25 08/26/2024 COMPL ETE BLOOD COUNT monocyte,abs olute 0.3 10*3/ uL 0.0-1. 2 normal Not Available [facility] [address] [place] [address], [address], 08/26/2024 10:07:33 08/27/19 25 08/26/2024 COMPL ETE BLOOD COUNT eosinophil,a bsolute 0.2 10*3/ uL 0.0-0. 8 normal Not Available [facility] [address] [place] [address], [address], 08/26/2024 10:07:33 08/27/19 25 08/26/2024 COMPL ETE BLOOD COUNT basophil,abs olute 0.0 10*3/ uL 0.0-0. 3 normal Not Available [facility] [address] [place] [address], [address], 08/26/2024 10:07:33 08/27/19 25 08/26/2024 COMPL ETE BLOOD COUNT % neutrophils 66.0 % 42.0-7 8.0 normal Not Available [facility] [address] [place] [address], [address], 08/26/2024 10:07:33 08/27/19 25 08/26/2024 COMPL ETE BLOOD COUNT % lymphocytes 20.1 % 11.0-4 7.0 normal Not Available [facility] [address] [place] [address], [address], 08/26/2024 10:07:33 08/27/19 25 08/26/2024 COMPL ETE BLOOD COUNT % monocytes 8.7 % 0.0-11 .0 normal Not Available [facility] [address] [place] [address], [address], 08/26/2024 10:07:33 08/27/19 25 08/26/2024 COMPL ETE BLOOD COUNT % eosinophils 4.4 % 0.0-7. 0 normal Not Available [facility] [address] [place] [address], [address], 08/26/2024 10:07:33 08/27/19 25 08/26/2024 COMPL ETE BLOOD COUNT % basophils 0.8 % 0.0-3. 0 normal Not Available [facility] [address] [place] [address], [address], 08/26/2024 10:07:33 08/27/19 25 08/26/2024 COMPL ETE BLOOD COUNT nucleated red cells 0.1 % 0.0-0. 9 normal Not Available [facility] [address] [place] [address], [address], 08/26/2024 10:07:33 08/27/19 25 08/26/2024 COMPL ETE BLOOD COUNT nucleated RBCs, absolute 0.00 10*3/ uL not estab. normal Not Available [facility] [address] [place] [address], [address], 08/26/2024 10:07:33 08/27/19 25 08/26/2024 CREAT ININE creatinine 0.90 mg/dL 0.50-0 .95 normal Not Available [facility] [address] [place] [address], [address], 08/26/2024 10:32:12 08/27/19 25 08/26/2024 AST AST 22 U/L 0-32 normal Not Available [facility] [address] [place] [address], [address], 08/26/2024 10:32:14 08/27/19 25 08/26/2024 ALT ALT 16 U/L 0-33 normal Not Available [facility] [address] [place] [address], [address], 08/26/2024 10:32:15 08/27/19 25 08/28/2024 QUANT IFERO N TB GOLD qtb gold NEGATI VE negati ve normal Negat penny test resul t. M. tuber culos is compl ex infec tion unlik lyn. Not Available [facility] [address] [place] [address], [address], 08/28/2024 17:30:17 08/27/19 25 08/28/2024 QUANT IFERO N TB GOLD nil 0.02 IU/mL normal Not Available [facility] [address] [place] [address], [address], 08/28/2024 17:30:17 08/27/19 25 08/28/2024 QUANT IFERO N TB GOLD mitogen nil 6.03 IU/mL normal Not Available [facility] [address] [place] [address], [address], 08/28/2024 17:30:17 08/27/19 25 08/28/2024 QUANT IFERO N TB GOLD TB1 nil 0.00 IU/mL normal Not Available [facility] [address] [place] [address], [address], 08/28/2024 17:30:17 08/27/19 25 08/28/2024 QUANT IFERO N TB GOLD TB2 nil 0.00 IU/mL normal The Nil tube value refle cts the backg round inter feron gamma immun e respo nse of the patie nt's blood sampl e. This value has been subtr acted from the patie nt's displ ayed TB and Mitog en resul ts. Lower than expec moncho resul ts with the Mitog en tube preve nt false -nega tive Quant ifero n readi ngs by detec ting a patie nt with a poten tial immun e suppr essiv e condi tion and/o r subop timal pre-a nalyt ical speci men handl ing. The TB1 Antig en tube is coate d with the M. tuber culos is-sp ecifi c antig ens desig carla to elici t respo nses from TB antig en prime d CD4+ helpe r T-lym phocy malick. The TB2 Antig en tube is coate d with the M. tuber culos is-sp ecifi c antig ens desig carla to elici t respo nses from TB antig en prime d CD4+ helpe r and CD8+ cytot oxic T-lym phocy malick. For addit ional infor estefania toure e refer to https ://ed christopherati on.qu abrahanBundle Buy/f aq/FA Q204 (This link is being provi ded for infor mercedes wise/ educa jerry l purpo ses only. ) Not Available [facility], [place], [address], 08/28/2024 17:30:17 Result Notes None recorded. Problems Name Problem SNOMED Code Status Onset Date Resolution Date Notes Provider Name and Address Organization Details Recorded Time Pain in right foot 20248746768 9107 Active 2015 From Automated Load;Prov ider: Aicha Briseno tatus: Active Not Available [facility] 6 05:07:30 Pain in left foot 16464233818 9107 Active 2015 From Automated Load;Prov ider: Keira Briseno;Negrito tatus: Active Not Available [facility] 6 05:07:30 Pain of right hand 27958866889 9109 Active 2015 From Automated Load;Prov ider: Keira Briseno;S tatus: Active Not Available [facility] 6 05:07:30 Hand pain 04736756 Active 2015 From Automated Load;Prov ider: Keira Briseno;S tatus: Active Not Available [facility] 6 05:07:30 Erythrocy te sedimenta tion rate above reference range 747241689 Active 2015 From Automated Load;Prov ider: Keira Briseno;S tatus: Active Not Available [facility] 6 05:07:30 Vitamin D deficienc y 63083858 Active 2015 From Automated Load;Prov ider: Keira Briseno;S tatus: Active Not Available [facility] 6 05:07:30 Psoriasis with arthropat hy Active 2015 From Automated Load;Prov ider: Keira Briseno;S tatus: Active Not Available [facility] 6 05:07:30 Small plaque parapsori asis 74809353 Active 2015 From Automated Load;Prov ider: Keira Briseno;S tatus: Active Not Available [facility] 6 05:07:30 Problem Notes None recorded. Procedures Surgical History Date Name Laterality Status Provider Name and Address Organization Details Recorded Time Orthopedic Surgery completed [facility] 11/07/2016 11:28:18 Imaging Results None recorded. Procedure Notes None recorded. Medical Equipment None Reported. Allergies Allergen ID Allergen Name Allergen Category Reaction Reaction Severity Criticality Documentation Date Start Date Code Code System Note Provider Name and Address Organization Details Recorded Time 403740 Product containin g penicilli n (product) medicatio n Not available Not available Not available 05/04/20162015 02003 8001 SNOMED Comme nt: Creat ed By: Emigdio ivan Date: 016 2:20: 38 PM; Not Available [facility] 6 10:17:34 126007 prednison e medicatio n insomnia moderate Not available 08/08/2020 8640 RxNorm nervo uscynthia Bocanegra [facility] 1 11:22:29 408215 hydroxyzi ne Not available nausea Not available Not available 07/20/2021 5553 RxNorm Cary hays [facility] 2 14:20:37 485405 venlafaxi ne medicatio n Not available Not available Not available 07/20/2021 22368 RxNorm Carytammy hays [facility] 2 14:20:49 Medications Name Sig Start Date Stop Date Status Note LastModified by Organization Details LastModified Time Prescript ion - Change 01/18 completed Not Available Not Available Not Available Prescript ion - Prior Authoriza tion Request active Not Available Not Available Not Available Singulair 10 mg tablet Daily 01/18 completed Frequenc y: daily;Me dication Descript ion: monteluk ast; Dosage:1 ; Route:or al; refills: 5; Quantity :30 tablet Not Available Not Available Not Available losartan 50 mg tablet Take 1 tablet every day by oral route. active Not Available Not Available No t Available ropinirol e 1 mg tablet TAKE 1 TABLET BY MOUTH THREE TIMES DAILY 03/23 completed Not Available Not Available Not Available venlafaxi ne 75 mg tablet Take 1 tablet twice a day by oral route. 07/20 completed makes sick N/V WW/ TABLETS. CAN TAKE CAPSULE W/O ISSUES Not Available Not Available Not Available Depo-Medr ol 40 mg/mL suspensio n for injection Take 120 mg by injectio n route. 07/08 completed Not Available Not Available Not Available valacyclo vir 1 gram tablet Take 1 tablet(s ) twice a day by oral route for 90 days. 2024 active Not Available Not Available Not Avai lable Nystop 100,000 unit/gram topical powder apply to affected area twice a day 2017 active Not Available Not Available Not Avai lable meloxicam 15 mg tablet Take 1 tablet every day by oral route. 2024 active Not Available Not Available Not Avai lable Medrol (Livan) 4 mg tablets in a dose pack Take 1 dose pk by oral route. 01/18 completed Not Available Not Available Not Available prednison e 5 mg tablet take one po tid x 1 week; one po bid x 1 week then one po daily x 1 week 07/20 completed made sick Not Available Not Available Not Available Zithromax Z-Livan 250 mg tablet TAKE 2 TABLETS (500 MG) BY ORAL ROUTE ONCE DAILY FOR 1 DAY THEN 1 TABLET (250 MG) BY ORAL ROUTE ONCE DAILY FOR 4 DAYS 01/18 completed Not Available Not Available Not Available Tylenol Arthritis Pain 650 mg tablet,ex tended release Daily active Frequenc y: daily;Al t Frequenc y: prn;Medi cation Descript ion: acetamin ophen; Dosage:1 ; Route:or al; refills: 0 Not Available Not Available Not Available meclizine 12.5 mg tablet Three times a day 01/18 completed Duration : 30 days;Beau quency: tid;Alt Frequenc y: prn;Medi cation Descript ion: meclizin e; Dosage:1 ; Route:or al; refills: 2 Not Available Not Available Not Available leflunomi de 20 mg tablet TAKE 1 TABLET EVERY DAY SATURDAY THROUGH SATURDAY (5 DAYS PER WEEK) 04/14 completed Not Available Not Available Not Available ondansetr on 8 mg disintegr ating tablet TAKE ONE-HALF TO ONE TABLET BY MOUTH EVERY 8 HOURS NEEDED FOR NAUSEA active Not Available Not Available No t Available Depo-Medr ol 80 mg/mL suspensio n for injection Take 120 mg by injectio n route. 03/23 completed Not Available Not Available Not Available Arava 10 mg tablet 1 every other day 05/28 completed Duration : 30 days;Ins truction s: take one on m, w, f;Freque ncy: daily;Me dication Descript ion: leflunom pete; Dosage:1 ; Route:or al; refills: 3; Quantity :30 tablet Not Available Not Available Not Available dexametha sone 0.5 mg/5 mL oral elixir Take 5 mL twice a day by oral route. 11/10/ 2022 10/14 /2025 completed pt not taking this Not Available Not Available Not Available bupropion HCl 100 mg tablet Take 1 tablet twice a day by oral route. 07/20 completed Not Available Not Available Not Available methocarb zohreh 750 mg tablet 05/28 completed Not Available Not Available Not Available methotrex ate sodium 2.5 mg tablet take 4 tablets all together once weekly every week with the last meal of your day 03/23 completed Not Available Not Available Not Available diazepam 2 mg tablet Take 1 tablet 3 times a day by oral route. 07/08 completed Not Available Not Available Not Available amlodipin e 10 mg tablet Take 1 tablet every day by oral route. 07/20 completed Not Available Not Available Not Available ropinirol e 2 mg tablet Take 1 tablet 3 times a day by oral route for 90 days. 2024 active Not Available Not Available Not Avai lable nystatin 100,000 unit/gram topical cream apply topicall y to affected area twice a day 2019 active Not Available Not Available Not Avai lable lisinopri l 10 mg tablet Take 1 tablet every day by oral route. 07/20 completed Not Available Not Available Not Available folic acid 1 mg tablet take 1 tablet by mouth once daily 03/23 completed Not Available Not Available Not Available mupirocin 2 % topical ointment APPLY A SMALL PEA SIZED AMOUNT TO THE AFFECTED AREA BY TOPICAL ROUTE 3 TIMES PER DAY 2023 active Not Available Not Available Not Avai lable clobetaso l 0.05 % topical ointment APPLY EXTERNAL LY TO THE AFFECTED AREA TWICE DAILY 2024 active Not Available Not Available Not Avai lable scopolami ne 1 mg over 3 days transderm al patch Apply 1 patch every 72 hours by transder mal route. 03/06 completed Not Available Not Available Not Available clobetaso l 0.05 % scalp solution 2023 active Not Available Not Available Not Avai lable ondansetr on 4 mg disintegr ating tablet DISSOLVE 2 TABLETS ON THE TONGUE TWICE DAILY 2024 active Not Available Not Available Not Avai lable fluticaso ne propionat e 50 mcg/actua tion nasal spray,jessica pension Daily 10/01 completed Frequenc y: daily;Me dication Descript ion: fluticas one nasal; Dosage:1 ; Route:na chely; refills: 0 Not Available Not Available Not Available doxycycli ne hyclate 100 mg tablet Take 1 tablet twice a day by oral route for 10 days. 03/23 completed Not Available Not Available Not Available Ventolin HFA 90 mcg/actua tion aerosol inhaler Three times a day 11/07 completed Frequenc y: tid;Medi cation Descript ion: albutero l; Route:in halation ; refills: 0 Not Available Not Available Not Available escitalop edward 10 mg tablet Take 1 tablet every day by oral route. active Not Available Not Available No t Available Humira 40 mg/0.8 mL subcutane ous syringe kit inject 0.8 millilit ers subcutan eously EVERY 4 WEEKS 03/06 completed Not Available Not Available Not Available clobetaso l 0.05 % shampoo APPLY A THIN LAYER TOPICALL Y ONCE DAILY TO DRY SCALP. LEAVE IN PLACE 15 MINUTES THEN LATHER AND RINSE active Not Available Not Available No t Available Vitamin B-12 Daily 04/03 completed Duration : 10 days;Beau quency: daily;Me dication Descript ion: cyanocob alamin; Dosage:1 ; Route:or al; refills: 0 Not Available Not Available Not Available omeprazol e active Not Available Not Available Not Available hydroxyzi ne HCl Daily 03/06 completed prn Not Available Not Available Not Available ondansetr on 01/18 completed Not Available Not Available Not Available Humira Pen 40 mg/0.8 mL subcutane ous kit 12/19 completed Not Available Not Available Not Available Pro Fe active Not Available Not Availa ble Not Available B12 active Not Available Not Availa ble Not Available Vitamin D3 125 mcg (5,000 unit) tablet Take 1 tablet every day by oral route. 01/18 completed Not Available Not Available Not Available Otezla 30 mg tablet 10/07 completed PA denied Not Available Not Available Not Available Cosentyx 150 mg/mL subcutane ous syringe 04/19 completed Not Available Not Available Not Available Cosentyx Pen 300 mg/2 pens (150 mg/mL) subcutane ous pen injector INJECT 1 PEN (150 MG) SUBCUTAN EOUSLY ONCE EVERY TWO WEEKS 08/26 completed Not Available Not Available Not Available Cosentyx Pen 150 mg/mL subcutane ous INJECT 150 MG ONCE WEEKLY X 5 WEEKS FOR LOADING DOSE; THEN INJECT 150 MG EVERY 2 WEEKS FOR MAINTENA NCE DOSE. 09/10 completed Not Available Not Available Not Available Gemtesa 75 mg tablet Take 1 tablet every day by oral route. active Not Available Not Available No t Available Skyrizi 150 mg/mL subcutane ous pen injector 150 mg SC x1 q12wk 2024 active Not Available Not Available Not Avai lable Vitals Date Recorded Body height Body mass index (BMI) Body weight Heart rate Oxygen saturation Oxygen saturation in Arterial blood by Pulse oximetry Systolic And Diastolic Provider Name and Address Organization Details Last Updated DateTime 5 157.48 cm 47 kg/m2 458416. 24 g 95 /min 86 % 86 % 112/82 mm[Hg] [facility] 5 08:47:38 Date Recorded Body height Body mass index (BMI) Body weight Heart rate Oxygen saturation Oxygen saturation in Arterial blood by Pulse oximetry Respiratory rate Systolic And Diastolic Provider Name and Address Organization Details Last Updated DateTime 4 157.48 cm 44.7 kg/m2 216557. 34 g 59 /min 99 % 99 % 13 /min 108/72 mm[Hg] Katy Hicks [facility] 4 14:32:26 Date Recorded Body height Body mass index (BMI) Body weight Heart rate Oxygen saturation Oxygen saturation in Arterial blood by Pulse oximetry Systolic And Diastolic Provider Name and Address Organization Details Last Updated DateTime 4 157.48 cm 45.4 kg/m2 715809. 91 g 65 /min 94 % 94 % 128/80 mm[Hg] [facility] 4 15:52:25 Date Recorded Body height Body mass index (BMI) Body weight Respiratory rate Heart rate Oxygen saturation Oxygen saturation in Arterial blood by Pulse oximetry Systolic And Diastolic Provider Name and Address Organization Details Last Updated DateTime 5 157.48 cm 51.2 kg/m2 872066. 86 g 16 /min 66 /min 98 % 98 % 114/82 mm[Hg] Ema Hawthorne [facility] 5 15:57:47 Date Recorded Body height Body mass index (BMI) Body weight Heart rate Oxygen saturation Oxygen saturation in Arterial blood by Pulse oximetry Systolic And Diastolic Provider Name and Address Organization Details Last Updated DateTime 4 157.48 cm 45 kg/m2 029245. 72 g 67 /min 95 % 95 % 128/78 mm[Hg] Vita Berger [facility] 4 14:35:08 Social History Question Answer Notes LastModified by [email or web address] Details LastModified Time Tobacco Smoking Status Never Smoker Therese Izaguirre [facility] 07/02/2016 14:19:06 How Much Tobacco Do You Chew? None Information not available 01/23/2019 What Was The Date Of Your Most Recent Tobacco Screening? 03/23/2025 [email or web address] Information not available 03/23/2025 How Much Tobacco Do You Smoke? No Information not available 01/23/2019 Has Tobacco Cessation Counseling Been Provided? No Information not available 04/03/2021 How Many Years Have You Smoked Tobacco? 0 Information not available 01/23/2019 Have You Recently Traveled Abroad? No [email or web address] Information not available 04/19/2022 Sex: Female Functional Status Question Answer Note LastModified by [email or web address] Details LastModified Time Do you use any illicit or recreational drugs? No Information not available 04/03/2021 Do you or have you ever used any other forms of tobacco or nicotine? No Information not available 04/03/2021 What is your level of alcohol consumption? None [email or web address] Information not available 07/02/2016 Do you or have you ever used smokeless tobacco? Never used smokeless tobacco Information not available 01/23/2019 Do you or have you ever used e-cigarettes or vape? Never used electronic cigarettes Information not available 01/23/2019 Mental Status None recorded. Family History Relationship Description Onset Age of this Age Resolved Age Notes LastModified by Organization Details LastModified Time Father No current problems or disability Not available 10/01 11:30:51 Mother No current problems or disability [email or web address] Not available 10/01 11:30:51 Unspecified Relation Asthma [email or web address] Not available 7 11:26:40 Unspecified Relation Family history of malignant neoplasm [email or web address] Not available 2016 11:26:51 Unspecified Relation Diabetes mellitus [email or web address] Not available 2016 11:26:59 Unspecified Relation Heart disease [email or web address] Not available 2016 11:27:16 Unspecified Relation Hyperlipidem ia [email or web address] Not available 2016 11:27:27 Unspecified Relation Hypertensive disorder [email or web address] Not available 2016 11:27:40 Medical History Condition Response Allergies/Hayfever Y Diabetes N Bleeding Disorder N Arthritis Y Emphysema N Acid Reflux (GERD) N Asthma N COPD N Heart Disease N Rheumatoid Arthritis Y Hypertension Y Gynecological HistoryNo gynecological history recorded. Obstetrics History GPAL:G 0 P 0 0 0 0 Immunizations Vaccine Type Date Status Note Provider Nam e and Address Organization Details Recorded Time Influenza, split virus, quadrivalent, PF 03/13/2016 completed Not Available [facility] 5 15:16:55 Past Encounters Encounter ID Performer Location Encounter Start Date Encounter Closed Date Diagnosis/Indication Diagnosis SNOMED-CT Code Diagnosis ICD10 Code Diagnosis IMO Codes Diagnosis Note [id number] KEIRA BRISENO APRN [facility] [address] [place] [address] 07/02/2016 13:22:18 07/02/2016 17:20:48 Psoriasis with arthropathy 62164158 L40.50 Pain in left foot 131221 9935 35107 M79.672 Pain in right foot 32910 14766 89913 M79.328 [id number] KEIRA BRISENO APRN [facility] [address] [place] [address] 10/01/2016 11:21:53 10/01/2016 12:09:28 Psoriasis with arthropathy 97909536 L40.50 psoriatic arthritis psoriasis improved overall joint pains are minimal with no effusions, synovitis or dactylitis discontinu e methotrexa te and folic acid started on humira with great outcome will continue to inject one every other week Pain of mu ltiple joints 73100036 M25.50 improved overall;si gnificant changes in the bilateral feetimprov ed overallsom e minor flares in the interim, but none major. Loss of hair 143634775 L 65.9 would like to have an endocrinol ogy referral to have further assessment s performed on her thyroidwei ght changes, dry skin and fatiguemul tiple family members with thyroid issueswoul d like to have a specialist 's opinion and thorough examinatio n longterm methotrexate user [id number] 00 Z79.899 discontinu e at this timestop folic acidwill assess labs today [id number] DARLINE NDIAYE APRN ENDOCRINO LOG[facility] [address] [place] [address] 11/07/2016 11:00:10 11/07/2016 12:15:36 Loss of hair 777652699 L65.9 Discussed possible etiology which includes anemia, heredity, elevated testostero ne and endocrine related disease processes such as hyperthyro idism but 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 She had a CBC on 10/01/16 and was not anemic. Will check testostero ne level and thyroid labs for evaluation . If no Endocrine disease process is identified , recommend that she follow up with Dermatolog y. 11/12/16 - Addendum: TSH 1.45, FT4=1.14, total testostero ne 24 (normal 2-45) and free testostero ne 1.4 (normal 0.1-6.4). No Endocrine disease process noted. Recommend that she follow up with dermatolog y regarding hair loss. [id number] MARIANNE FLORES MD [facility] [address] [place] [address] 12/19/2016 14:02:31 12/19/2016 14:50:04 Psoriasis with arthropathy 51512284 L40.50 she has done quite sell.No active skin lesions.Th e psoriatic arthritis and psoriasis are improved overall The joint pains are minimal with no effusions, synovitis or dactylitis . Some of the joint pains are secondary to OA. I agree to discontinu e methotrexa te and folic acid which she has not done yet, but agree to do it from this week. Reduce the Humira 40 mg q 1 month, as she does not like the pain/ at injection site.As she looks good, we can try to reduce the Humira to q 4 weeks.Can DC Prednisone .Maintain Arava 10 mg to qod. obtain labs. [id number] KEIRA BRISENO APRN [facility] [address] [place] [address] 02/26/2017 11:22:53 02/26/2017 16:05:08 Psoriasis with arthropathy 63882207 L40.50 psoriatic arthritis psoriasis improved overall with minimal rashwill provide with 120 mg IM injection todayjoint pains are minimal with no effusions, synovitis or dactylitis started on humira with great outcome will continue to inject one every other week needs refills today Pain in le ft lower limb 876628221 M79.605 left lower leg and ankle/foot pain with numbness and tinglingon assessment there is palpable mass under the skin in the left mid to lower calfI would like for her to have an us to assess for blood clot of this extremity as soon as it is available Long-term drug therapy 467878655 Z79.733 [id number] [facility] [address] [place] [address] 05/28/2017 13:03:52 05/28/2017 14:38:40 Psoriasis with arthropathy 91678156 L40.50 she has done quite sell. currently active lesion on left wristThe psoriatic arthritis and psoriasis are improved overall The joint pains are minimal with no effusions, synovitis or dactylitis . Some of the joint pains are secondary to OA. continue with the Humira 40 mg q 1 month, as it is stable with her at this time Maintain Arava 10 mg to qod. 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 [id number] KEIRA BRISENO APRN [facility] [address] [place] [address] 08/23/2017 13:18:17 08/23/2017 14:20:22 Psoriasis with arthropathy 28353919 L40.50 she has done quite sell.curre ntly active lesion on left wrist and behind both earsThe psoriatic arthritis and psoriasis are improved overall but she has been out of the humira x 1 month she is without effusion/s ynovitis or dactylitis todaySome of the joint pains are secondary to OA called her pharmacy and her Rxs are there waiting on her; she should continue with the Humira 40 mg q 1 month, as it is stable with her at this timeMainta in Arava 10 mg to qod. 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 [address] [place], [place] [address] 12/04/2017 15:08:06 12/04/2017 15:52:33 Psoriasis with arthropathy 05711623 L40.50 she has done quite sell.curre ntly active lesion on left wrist and behind both earsshe is on the humira and is c/o diarrhea she is without effusion/s ynovitis or dactylitis todaySome of the joint pains are secondary to OA Maintain Arava 10 mg to qod needs labs and refills todayhiren was diagnosed with meniere's disease and currently on ativan for this Long-term drug therapy 690965415 Z79.899 labs and refills Psoriasis of scalp 41432 8008 L40.9 Motion sickness 43215425 T75.3XXA going on cruise [id number] KEIRA BRISENO APRN [facility] [address] [address] 03/06/2018 15:01:06 03/06/2018 16:43:51 Psoriasis with arthropathy 91445563 L40.50 recurring scalp and skin psoriasisn o active lesionssom e mild flare with weather changeswas on humira and c/o diarrhea so she stopped it and continues on otezla and leflunomid e she is without effusion/s ynovitis or dactylitis todaySome of the joint pains are secondary to OA Maintain Arava 10 mg to qod needs labs and refills todayhiren was diagnosed with meniere's disease and currently on ativan for this Long-term drug therapy 250554814 Z79.899 labs and refills Psoriasis of scalp 16144 8008 L40.9 [id number] KEIRA BRISENO APRN [facility] [address] [address] 07/08/2018 13:04:59 07/10/2018 10:52:40 Pain of shoulder region 40504686 M25.519 fell a couple of weeks ago in the kitchen and hit the left knee but reports she didn't have any injury with the right shoulder she reports she does sleep on this side she will take medrol livan to reduce inflammati on and if not improved she will report it if not improved Psoriasis with arthropathy 94749429 L40.50 recurring scalp and skin psoriasisn o active lesionssom e mild flare with weather changeswas on humira and c/o diarrhea so she stopped it and continues on otezla and leflunomid e without any s/e she is without effusion/s ynovitis or dactylitis todaySome of the joint pains are secondary to OA overlap with right shoulder pain Maintain Arava 10 mg to qod needs labs and refills todayhiren was diagnosed with meniere's disease and currently on ativan for this Long-term drug therapy 920341075 Z79.899 labs and refills Psoriasis of scalp 51122 8008 L40.9 Restless l egs syndrome 16428243 G25.81 [id number] [facility] [address] [place] [id number] 10/07/2018 12:43:41 10/07/2018 13:17:13 Psoriasis with arthropathy 13177169 L40.50 recurring scalp and skin psoriasisn o active lesionssom e mild flare with weather changeswas on humira and c/o diarrhea so she stopped it and continues on otezla and leflunomid e without any s/e she is without effusion/s ynovitis or dactylitis todaySome of the joint pains are secondary to OA overlap with right shoulder pain Maintain Arava 10 mg to , , fcontinue with cosentyx 300 mg once monthlynee ds labs and refills todayhiren was diagnosed with meniere's disease and currently on ativan for this Pain of [facility] 08053361 M25.519 improved overall with the loading dose of cosentyx Long-term drug therapy 153953096 Z79.899 labs and refills Psoriasis of scalp 23166 8008 L40.9 gone with cosentyx Restless l egs syndrome 84615551 G25.81 [id number] KEIRA BRISENO APRN [facility] [address] [place] [id number] 01/23/2019 13:34:08 01/26/2019 09:42:48 Psoriasis with arthropathy 49969311 L40.50 recurring scalp and skin psoriasisn o active lesionssom e mild flare with weather changeswas on humira and c/o diarrhea so she stopped it and continues on otezla and leflunomid e without any s/e she is without effusion/s ynovitis or dactylitis todaySome of the joint pains are secondary to OA overlap with right shoulder pain Maintain Arava 10 mg to , , fcontinue with cosentyx 300 mg once monthlynee ds labs and refills todayhiren was diagnosed with meniere's disease and currently on ativan for this Pain of [facility] 72871132 M25.519 improved overall with the loading dose of cosentyx Long-term drug therapy 628886540 Z79.899 labs and refills Psoriasis of scalp 58220 8008 L40.9 gone with cosentyx Restless l egs syndrome 38330770 G25.81 Brynn an gular cheilitis 780525697 B37.83 [id number] KEIRA BRISENO APRN [facility] [place] [address] 06/16/2019 12:53:10 06/16/2019 14:16:57 Psoriasis with arthropathy 99554775 L40.50 recurring scalp and skin psoriasisn o active lesionssom e mild flare with weather changeswas on humira and c/o diarrhea so she stopped it and continues on otezla and leflunomid e without any s/e she is without effusion/s ynovitis or dactylitis todaySome of the joint pains are secondary to OA overlap with right shoulder pain Maintain Arava 10 mg to , , fcontinue with cosentyx 300 mg once monthlynee ds labs and refills todayhiren was diagnosed with meniere's disease and currently on ativan for this Restless l egs syndrome 13684110 G25.81 Body mass index 40+ - severely obese 242526740 Z68.42 Brynn an gular cheilitis 093603467 B37.83 improved Long-term drug therapy 191299755 Z79.899 labs and refills Psoriasis of scalp 69401 8008 L40.9 gone with cosentyx [id number] KEIRA BRISENO APRN [facility] [place] [address] [place] [address] 06/29/2020 11:15:49 06/29/2020 11:59:40 Psoriasis with arthropathy 85182356 L40.50 recurring scalp and skin psoriasisn o active lesionssom e mild flare with weather changeswas on humira and c/o diarrhea so she stopped it and continues on otezla and leflunomid e without any s/e she is without effusion/s ynovitis or dactylitis todaySome of the joint pains are secondary to OA overlap with right shoulder pain Maintain Arava 10 mg to m, w, fcontinue with cosentyx 300 mg once monthlynee ds labs and refills todayhiren was diagnosed with meniere's disease and currently on ativan for this Restless l egs syndrome 13531943 G25.81 Long-term drug therapy 625387421 Z79.899 labs and refills Psoriasis of scalp 17454 8008 L40.9 Body mass index 40+ - severely obese 248550731 Z68.42 Plaque psoriasis 8679229 09 L40.0 left wrist Tuberculos is screening 371058215 Z11.1 [id number] [facility] [address] [place] [address] 10/03/2020 14:38:41 10/03/2020 15:43:36 Psoriasis with arthropathy 41666822 L40.50 recurring scalp and skin psoriasis no active lesions some mild flare with weather changes was on humira and c/o diarrhea so she stopped it and continues on otezla and leflunomid e without any s/e she is without effusion/s ynovitis or dactylitis today Some of the joint pains are secondary to OA overlap with right shoulder pain Maintain Arava 10 mg to m, w, f continue with cosentyx 300 mg once monthly needs labs and refills today she was diagnosed with meniere's disease and currently on ativan for this two boxes of samples of cosentyx given today will start with two injections today then start every 2 weeks injections Restless l egs syndrome 33700868 G25.81 Long-term drug therapy 898429189 Z79.899 labs and refills Psoriasis of scalp 97423 8008 L40.9 Body mass index 40+ - severely obese 615107733 Z68.42 Tuberculos is screening 610760685 Z11.1 negative 06/29/2020 [id number] [facility]ENO [facility] [address] [place] [address] 01/02/2021 14:34:27 01/02/2021 16:10:23 Psoriasis with arthropathy 94626212 L40.50 recurring scalp and skin psoriasis no active lesions some mild flare with weather changes was on humira and c/o diarrhea so she stopped it and continues on otezla and leflunomid e without any s/e she is without effusion/s ynovitis or dactylitis today Some of the joint pains are secondary to OA overlap with right shoulder pain Maintain Arava 10 mg to m, w, f and with cosentyx 300 mg once monthly needs labs and refills today she was diagnosed with meniere's disease and currently on ativan for this Restless l egs syndrome 17340047 G25.81 Long-term drug therapy 194498434 Z79.899 labs and refills Psoriasis of scalp 07317 8008 L40.9 improved overallwil l have her take some prednisone Tuberculos is screening 581064459 Z11.1 negative 06/29/2020 Body mass index 40+ - severely obese 158288220 Z68.42 [id number] KEIRA BRISENO APRN [facility] [address] [place] [address] 04/03/2021 13:29:02 04/03/2021 16:34:04 Psoriasis with arthropathy 90817818 L40.50 recurring scalp and skin psoriasis no active lesions some mild flare with weather changes was on humira and c/o diarrhea so she stopped it and continues on otezla and leflunomid e without any s/e she is without effusion/s ynovitis or dactylitis today Some of the joint pains are secondary to OA overlap with right shoulder pain Maintain Arava 10 mg to m, w, f and with cosentyx 300 mg once monthly needs labs and refills today she was diagnosed with meniere's disease and currently on ativan for this Long-term drug therapy 911263367 Z79.899 labs and refills Tuberculos is screening 432014292 Z11.1 negative 06/29/2020 [id number] [facility]ENO [facility] [address] [place] [address] 07/20/2021 14:04:35 07/21/2021 08:59:09 Psoriasis with arthropathy 05635896 L40.50 recurring scalp and skin psoriasis no active lesions some mild flare with weather changes was on humira and c/o diarrhea so she stopped it and continues on otezla and leflunomid e without any s/e she is without effusion/s ynovitis or dactylitis today Some of the joint pains are secondary to OA overlap with right shoulder pain Maintain Arava 10 mg to m, w, f and with cosentyx 300 mg once monthly needs labs and refills today she was diagnosed with meniere's disease and currently on ativan for this Long-term drug therapy 280944088 Z79.899 labs and refills Tuberculos is screening 783768837 Z11.1 negative 07/20/2021 Fatigue 08614505 R53.83 Vitamin D deficiency 347 42627 E55.9 Vitamin B1 2 deficiency (non anemic) 60169968 E53.8 [id number] KEIRA BRISENO APRN [facility] [address] [place] [address] 10/19/2021 12:31:45 10/19/2021 14:00:31 Psoriasis with arthropathy 60847420 L40.50 recurring scalp and skin psoriasis no active lesions some mild flare with weather changes was on humira and c/o diarrhea so she stopped it and continues on otezla and leflunomid e without any s/e she is without effusion/s ynovitis or dactylitis today Some of the joint pains are secondary to OA overlap with right shoulder pain Maintain Arava 10 mg to m, w, f and with cosentyx 300 mg once monthly needs labs and refills today she was diagnosed with meniere's disease and currently on ativan for this Long-term drug therapy 530398513 Z79.899 labs and refills Tuberculos is screening 205570582 Z11.1 negative 07/20/2021 Fatigue 44130098 R53.83 Vitamin D deficiency 347 84729 E55.9 Vitamin B1 2 deficiency (non anemic) 36612215 E53.8 Acute left otitis media 432340817 H66.92 [id number] KEIRA BRISENO APRN [facility] [address] [address] 01/18/2022 13:41:25 01/18/2022 16:30:06 Psoriasis with arthropathy 51781684 L40.50 recurring scalp and skin psoriasis no active lesions some mild flare with weather changes was on humira and c/o diarrhea so she stopped it and continues on otezla and leflunomid e without any s/e she is without effusion/s ynovitis or dactylitis today Some of the joint pains are secondary to OA overlap with right shoulder pain Maintain Arava 10 mg to m, w, f and with cosentyx 300 mg once monthly needs labs and refills today she was diagnosed with meniere's disease and currently on ativan for this Restless l egs syndrome 87388798 G25.81 Nausea 267481297 R11.0 Herpes zoster 9107416 B0 2.9 Long-term drug therapy 407844450 Z79.899 labs and refills Tuberculos is screening 169831944 Z11.1 negative 07/20/2021 [id number] KEIRA BRISENO APRN [facility] [address] [place] [address] 04/19/2022 14:03:15 04/19/2022 16:39:37 Psoriasis with arthropathy 52787025 L40.50 recurring scalp and skin psoriasis no active lesions some mild flare with weather changes was on humira and c/o diarrhea so she stopped it and continues on otezla and leflunomid e without any s/e she is without effusion/s ynovitis or dactylitis today Some of the joint pains are secondary to OA overlap with right shoulder pain Maintain Arava 10 mg to m, w, f and with cosentyx 300 mg once monthly needs labs and refills today she was diagnosed with meniere's disease and currently on ativan for this Restless l egs syndrome 22581872 G25.81 Nausea 539751075 R11.0 Herpes zoster 0233240 B0 2.9 Long-term drug therapy 309509131 Z79.899 labs and refills Tuberculos is screening 135399383 Z11.1 negative 07/20/2021 Lesion of oral mucosa 10 78605900 346185 K13.70 [id number] KEIRA BRISENO APRN [facility] [address] [place] [address] 08/21/2022 12:48:15 08/22/2022 04:33:04 Psoriasis with arthropathy 32928745 L40.50 recurring scalp and skin psoriasis no active lesions some mild flare with weather changes was on humira and c/o diarrhea so she stopped it and continues on otezla and leflunomid e without any s/e she is without effusion/s ynovitis or dactylitis today Some of the joint pains are secondary to OA overlap with right shoulder pain Maintain Arava 10 mg to m, w, f and with cosentyx 300 mg once monthly needs labs and refills today she was diagnosed with meniere's disease and currently on ativan for this Restless l egs syndrome 37758679 G25.81 Nausea 725581387 R11.0 Herpes zoster 4547633 B0 2.9 improved Long-term drug therapy 060429922 Z79.899 labs and refills Tuberculos is screening 036656224 Z11.1 negative 07/20/2021 Lesion of oral mucosa 10 93356703 208545 K13.70 Lumbago with sciatica 20 2324137 M54.42 bilateral side with weakness in bilateral legs Ulcer of mouth 57090350 K12.1 [id number] KEIRA BRISENO APRN [facility] [place] [address] 11/20/2022 13:50:46 11/21/2022 04:38:50 Psoriasis with arthropathy 25316081 L40.50 recurring scalp and skin psoriasis no active lesions some mild flare with weather changes was on humira and c/o diarrhea so she stopped it and continues on otezla and leflunomid e without any s/e she is without effusion/s ynovitis or dactylitis today Some of the joint pains are secondary to OA overlap with right shoulder pain cosentyx 300 mg once monthlyshe stopped the leflunomid e due to oral ulcers so we will restart mtx and folic acid today at 4 po once weekly every week needs labs and refills today she was diagnosed with meniere's disease and currently on ativan for this Restless l egs syndrome 53660309 G25.81 Nausea 540040389 R11.0 Herpes zoster 9258190 B0 2.9 improved Long-term drug therapy 045265569 Z79.899 labs and refills Tuberculos is screening 453276693 Z11.1 negative 08/21/2022 Lesion of oral mucosa 10 90450668 723162 K13.70 improved overall Lumbago with sciatica 20 7950397 M54.42 bilateral side with weakness in bilateral legs Ulcer of mouth 00281371 K12.1 [id number] KEIRA BRISENO APRN [facility] [address] [place] [address] 02/26/2023 15:13:42 02/27/2023 04:50:24 Psoriasis with arthropathy 80727175 L40.50 recurring scalp and skin psoriasis no active lesions some mild flare with weather changes was on humira and c/o diarrhea so she stopped it and continues on otezla and leflunomid e without any s/e she is without effusion/s ynovitis or dactylitis today Some of the joint pains are secondary to OA overlap with right shoulder pain cosentyx 300 mg once monthlyshe stopped the leflunomid e due to oral ulcers so we will restart mtx and folic acid today at 4 po once weekly every week needs labs and refills today she was diagnosed with meniere's disease and currently on ativan for this Restless l egs syndrome [id number] G25.81 Nausea 901357499 R11.0 Herpes zoster 9450319 B0 2.9 improved Long-term drug therapy 010184931 Z79.899 labs and refills Tuberculos is screening 174374644 Z11.1 negative 08/21/2022 Lesion of oral mucosa 10 58755716 531141 K13.70 improved overall Lumbago with sciatica 20 6307111 M54.42 bilateral side with weakness in bilateral legs Ulcer of mouth 72726079 K12.1 Dizziness and giddiness 635735635 R42 New balance issues leaning to left side with ambulation . Dizziness while in bed.Recent falls. No new medication changes. No vision or hearing changes recently. [id number] KEIRA BRISENO APRN [facility] [address] [place] [address] 07/12/2023 13:32:25 07/13/2023 04:34:08 Psoriasis with arthropathy 85751723 L40.50 recurring scalp and skin psoriasis no active lesions with the mtx, cosentyx some mild flare with weather changes she is without effusion/s ynovitis or dactylitis today Some of the joint pains are secondary to OA overlap with right shoulder pain cosentyx 300 mg once monthly without s/cshe stopped the leflunomid e due to oral ulcers so we restarted mtx and folic acid at 4 po once weekly every week she has lost weight and has improved overall so we will try to get rid of the methotrexa teshe will take 3 pills once weekly for two weeks and if no worsened pain she will further decrease to 2 pills once weekly for two weeks--if joint pain worsens then return to 3 pills once weekly, if no increase of joint pain she will decrease down to 2 pills once weekly and then will stop it after those two weeks; with any flares after stopping it she will notify me. 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 Dizziness while in bed.Recent falls. No new medication changes. No vision or hearing changes recently. [id number] KEIRA BRISENO APRN [facility] [address] [place] [address] 10/11/2023 13:34:24 10/16/2023 12:03:18 Psoriasis with arthropathy 47300287 L40.50 recurring scalp and skin psoriasis no active lesions with the mtx, cosentyx some mild flare with weather changes she is without effusion/s ynovitis or dactylitis today Some of the joint pains are secondary to OA overlap with right shoulder pain cosentyx 300 mg once monthly without s/cshe stopped the leflunomid e due to oral ulcers so we restarted mtx and folic acid at 4 po once weekly every week she has lost weight and has improved overall so we will try to get rid of the methotrexa darius will take 3 pills once weekly for two weeks and if no worsened pain she will further decrease to 2 pills once weekly for two weeks--if joint pain worsens then return to 3 pills once weekly, if no increase of joint pain she will decrease down to 2 pills once weekly and then will stop it after those two weeks; with any flares after stopping it she will notify me. 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 Dizziness while in bed.Recent falls. No new medication changes. No vision or hearing changes recently. Psoriasis of scalp 04882 8008 L40.9 improved overallwil l have her take some prednisone [id number] KEIRA BRISENO APRN [facility] [address] [place] [address] 01/17/2024 14:55:23 01/22/2024 10:31:11 Psoriasis with arthropathy 56004183 L40.50 recurring scalp and skin psoriasis no active lesions with the mtx, cosentyx some mild flare with weather changes she is without effusion/s ynovitis or dactylitis today Some of the joint pains are secondary to OA overlap with right shoulder pain cosentyx 300 mg once monthly without s/cshe stopped the leflunomid e due to oral ulcers so we restarted mtx and folic acid at 4 po once weekly every week she has lost weight and has improved overall so we will try to get rid of the methotrexa teshe will take 3 pills once weekly for two weeks and if no worsened pain she will further decrease to 2 pills once weekly for two weeks--if joint pain worsens then return to 3 pills once weekly, if no increase of joint pain she will decrease down to 2 pills once weekly and then will stop it after those two weeks; with any flares after stopping it she will notify me. 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 Dizziness while in bed.Recent falls. No new medication changes. No vision or hearing changes recently. Psoriasis of scalp 56315 8008 L40.9 improved overallwil l have her take some prednisone Abscess of skin of abdomen 0438994346 1045208 L02.211 [id number] KEIRA BRISENO APRN [facility] [address] [place] [address] 04/14/2024 14:03:09 04/15/2024 04:33:15 Psoriasis with arthropathy 58330400 L40.50 recurring scalp and skin psoriasis no active lesions with the mtx, cosentyx some mild flare with weather changes she is without effusion/s ynovitis or dactylitis today Some of the joint pains are secondary to OA overlap with right shoulder pain cosentyx 300 mg once monthly without s/cshe stopped the leflunomid e due to oral ulcers so we restarted mtx and folic acid at 4 po once weekly every week she has lost weight and has improved overall so we will try to get rid of the methotrexa teshe will take 3 pills once weekly for two weeks and if no worsened pain she will further decrease to 2 pills once weekly for two weeks--if joint pain worsens then return to 3 pills once weekly, if no increase of joint pain she will decrease down to 2 pills once weekly and then will stop it after those two weeks; with any flares after stopping it she will notify me. 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 Dizziness while in bed.Recent falls. No new medication changes. No vision or hearing changes recently. Psoriasis of scalp 64850 8008 L40.9 improved overallwil l have her take some prednisone [id number] KEIRA BRISENO APRN [facility] [address] [place] [address] 08/26/2024 08:32:44 08/27/2024 05:17:25 Psoriasis with arthropathy 40669341 L40.50 recurring scalp and skin psoriasis- improved though had an outbreak with change of medication s no active lesions with the mtx, some mild flare with weather changes she is without effusion/s ynovitis or dactylitis today Some of the joint pains are secondary to OA overlap with right shoulder painshe stopped the leflunomid e due to oral ulcers so we restarted mtx and folic acid at 4 po once weekly every week started on skyrizi 150 mg SC x1 on wk 0, 4, then q12wk without s/eshe is finished with her loading dose Restless l egs syndrome 64400054 G25.81 Nausea 509817695 R11.0 Herpes zoster 3781735 B0 2.9 improved Long-term drug therapy 042097258 Z79.899 labs and refills Tuberculos is screening 095977876 Z11.1 negative 08/26/2024 Lesion of oral mucosa 10 73471409 294222 K13.70 improved overall Lumbago with sciatica 20 5548133 M54.42 bilateral side with weakness in bilateral legs 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 Dizziness while in bed.Recent falls. No new medication changes. No vision or hearing changes recently. Psoriasis of scalp 56354 8008 L40.9 improved overallwil l have her take some prednisone uses prn scalp solution and shampoo [id number] KAUSHAL BANSAL MD [facility] [address] [place] [address] 03/23/2025 15:15:31 03/24/2025 06:38:08 Psoriasis with arthropathy 33959133 L40.50 recurring scalp and skin psoriasis Previous Rx: leflunomid e, methotrexa te - Continue Skyrizi 150 mg every three months- hold methotrexa te for now to see if skyrizi can manage her symptoms alone- continue meloxicam 15 mg daily for now- Monitor for increased pain or psoriasis flare-ups, and restart methotrexa te if necessary. Restless l egs syndrome 94172519 G25.81 - Continue ropinirole but consider discussing alternativ e treatments with the new primary care physician due to gastrointe stinal discomfort . Long-term drug therapy 090998154 Z79.899 - labs every 6 months on current medication s- request most recent labs from PCP We reviewed the side effects of Skyrizi ([place]-23 inhibitor) including but not limited to infection, hypersensi tivity, fatigue, headache. We discussed that these medication s can cause reactivati on of tuberculos is or viral hepatitis and we need to check these prior to starting medication . We discussed appropriat e immunizati ons including flu, pneumonia, and shingles vaccines. No live vaccines. Tuberculos is screening 701355130 Z11.1 negative 08/26/2024 Psoriasis of scalp 50354 8008 L40.9 - Use clobetasol ointment for topical treatment during flare-ups. - She uses doxycyclin e during severe flare-ups affecting the stomach and scalp.- continue follow up with dermatolog y Spinal nilay nosis of lumbar region 42306466 M48.062 055993 Limits her gait- continue follow up with PCP Health Concerns Section Related Observation LastModified by Organization Detai ls LastModified Time None Recorded Concern Status LastModified by Organization Details LastModified Time None Recorded Advance Directives Directive None Recorded Payers Insurance Date Sequence Insurance Name Policy Number Policy Siddiqi Covered Member ID Siddiqi Member ID Guarantor Name 03/20/2025 1 [employer] - GOLD [employer]US (MEDICARE REPLACEMENT/A DVANTAGE - HMO) Karrie Tobias [id number] Karrie Tobias 10/19/2021 1 [employer] (MEDICARE REPLACEMENT/A DVANTAGE - HMO) Karrie Tobias [id number] Karrie Tobias 03/20/2025 2 [employer] (MEDICARE SUPPLEMENT) Karrie Tobias [id number] Karrie Tobias 10/19/2021 3 [place] Karrie Tobias [id number] Karrie Tobias 10/19/2021 1 [facility] (MEDICAID REPLACEMENT - HMO) Karrie Tobias [id number] Karrie Tobias 06/29/2020 1 *SELF PAY* Ve alex Morton Jatinder Notes Date Note Type Note Provider Name and Address Organization Details Recorded Time 10/11/2023 text/html ROS as noted in the HPI Patient is a 68-year-old female following up for psoriatic arthritis.she has been losing weight and has lost over 50 lbs and feeling well She does have chronic ankle and knee pain which has significantly improved. She is having balance issues. No hearing or vision changes. Leg gives out. Denies any numbness or tingling to lower extremities. Denies any low back pain.Feels like she cannot walk straight. She does have dizziness while in bed.Patient is currently prescribed Cosentyx every 2 weeks.She is also taking methotrexate 2.5 mg, 4 pills weekly. Patient also takes folic acid 1 mg daily. Denies any recent trauma, or injury. Denies fevers, recurring infections, or skin changes. Denies chest pain, shortness of breath, or bowel/bladder changes. All others negative. KEIRA BRISENO, DIRECTOR TRANSPORTATION [address] [place], [address], [facility] 10/11/2023 15:28:14 04/14/2024 text/html ROS as noted in the HPI Patient is a 68-year-old female following up for psoriatic arthritis.she has been losing weight and has lost over 50 lbs and feeling well She does have chronic ankle and knee pain which has significantly improved. She is having balance issues. No hearing or vision changes. Leg gives out. Denies any numbness or tingling to lower extremities. Denies any low back pain.Feels like she cannot walk straight. She does have dizziness while in bed.Patient is currently prescribed Cosentyx every 2 weeks. though she feels like it is not working but a couple of days after she injects She is also taking methotrexate 2.5 mg, 4 pills weekly. Patient also takes folic acid 1 mg daily. Denies any recent trauma, or injury. Denies fevers, recurring infections, or skin changes. Denies chest pain, shortness of breath, or bowel/bladder changes. All others negative. KEIRA BRISENO, DIRECTOR TRANSPORTATION [address] [place], [address], [facility] 04/14/2024 15:04:43 08/26/2024 text/html ROS as noted in the HPI Patient is a 69-year-old female following up for psoriatic arthritis.she has been losing weight and has lost over 50 lbs and feeling well She does have chronic ankle and knee pain which has significantly improved. She is having balance issues. No recent hearing or vision changes as she does have hearing aids. Leg gives out at times. Denies any numbness or tingling to lower extremities. Denies any low back pain.Feels like she cannot walk straight. She does have dizziness while in bed even at times.Patient is currently prescribed skyrizi She is also taking methotrexate 2.5 mg, 4 pills weekly. Patient also takes folic acid 1 mg daily. Denies any recent trauma, or injury. Denies fevers, recurring infections, or skin changes. Denies chest pain, shortness of breath, or bowel/bladder changes. All others negative. KEIRA BRISENO, BRITT [address] [place], [address], [facility] 08/26/2024 09:13:59 03/23/2025 text/html ROS as noted in the HPI The patient is a 69-year-old female presenting with psoriatic arthritis. She is a previous patient of Keira Briseno and this is my first time meeting her. She reports ongoing pain despite current treatment with Skyrizi and methotrexate, which she has been taking regularly. The patient has not been on Skyrizi alone and is considering discontinuing methotrexate to assess if Skyrizi alone can manage her symptoms. She also experiences restless legs syndrome, for which she takes ropinirole, although it causes gastrointestinal discomfort. Additionally, she has a history of psoriasis affecting her scalp and stomach, managed with doxycycline during flare-ups and clobetasol ointment for topical treatment. She denies red, hot, swollen joints in the hands and feet. She has bilateral knee replacements.She has been gaining weight.Unsteady gait. Documentation on this patient encounter was supported using voice-enabled Al technology. The patient consented to recording for the purpose of documenting the encounter. Provider reviewed content of the generated note prior to signature. KAUSHAL BANSAL MD [address] [place] [address], [address], [facility] 03/24/2025 06:38:05 OBGyn Episode No OBEpisode recorded.
[2025-03-24 15:48] LABS: Anion Gap 12.3 mEq/L (5-15); Blood Urea Nitrogen 23 mg/dl (7-17); Calcium 9.1 mg/dl (8.4-10.2); Carbon Dioxide 28 mmol/L (22.0-30.0); Chloride 105 mmol/L (98-107); Creatinine,Serum 1.00 mg/dl (0.52-1.04); Estimated Glomerular Filt Rate 55 ml/min (>60); GFR (African American) 67 ML/MIN (>60); Glucose 98 mg/dl (74-100); Potassium 5.3 mmoL/L (3.5-5.1); Sodium 140 mmol/L (136-145)
== END 2025-03-24 23:59 | disposition home or self-care (01) ==
LOC: LAB 14:33
PROVIDERS: PCP Nurse Practitioner Family; Visit Provider Internal Medicine
DX: I10 Essential (primary) hypertension (principal)
CPT/HCPCS: 36415; 80048

== ENCOUNTER 2025-04-07 10:46 | Outpatient (CLI) | payer MEDICARE, SELFPAY ==
--- NOTE | 2025-04-07 | CA_ITS ---
APPROVED REPORT Exam: Pharmacologic Technologist: Trina Stephens Stress Nurse: Nessa CHILEL, RN Ht: 5 ft 3 in Wt: 274 lbs BSA: 2.21 m2 HR: 57 bpm BP: 187/87 mmHg Indications: Rule out ischemia due to dyspnea Stress Test Details Test: Lexiscan HR Resting HR: 57 bpm Max Heart Rate (APMHR): 151.609067 bpm Max HR Achieved: 88 bpm Target HR (85% APMHR): 128.667441 bpm % of APMHR: 58.28 Recovery HR: 68 bpm BP Resting BP: 187.0/87.0 mmHg Max BP: 182.0/87.0 mmHg Recovery BP: 182.0/97.0 mmHg ECG Resting ECG: Sinus rhythm Stress ECG Conclusion Lungs clear to auscultation prior to test start. Symptoms: None Arrhythmias/Ectopy: PAC ST-T Changes: Less than 0.[address] segment changes. Conclusion: Nondiagnostic ECG/Lexiscan. Electronically signed by : Lacey Sands MD 04/11/2025 16:16:06
--- OUTSIDE RECORDS SUMMARY | 2025-04-07 10:51 | XMS_ITS | Continuity of Care Document ---
Author Organization [place] - [facility], [facility] Address [address] [place] [address] Assessment No assessment recorded. Plan of Treatment Reminders Order Date Submit Date Provider Last Modified By Organization Details Last Modified Time Details Appointments OV EST 15 2025 01:00P M Radhames Botello Jr, MD Not available Not available Not available Lab urinalysi s, dipstick 2024 025 [email or web address] [facility], [address] [place] [address], [address], 02/19/2025 08:34:05 Referral None recorded. Procedures None recorded. Surgeries None recorded. Imaging None recorded. Medication Orders Gemtesa 75 mg tablet 2024 025 [facility], [address] [facility], [place], [address], 02/17/2025 13:40:42 solifenac in 5 mg tablet 2024 025 [facility], [address] [facility], [place], [address], 02/17/2025 13:40:41 Patient TargetsNo targets recorded. Patient InstructionsNo instructions recorded. Reason for Referral None Reported. Results Created Date Observation Date Name Description Value Unit Range Abnormal Flag Note LastModifiedBy Organization Detail LastModifiedTime 02/18/2002/17/2025 urina lysis , dipst ick Leukocytes (reference range) small Not Available [address] [place], [address], 02/17/2025 13:36:44 02/18/2002/17/2025 urina lysis , dipst ick Nitrite (reference range:) negati ve Not Available [address], [address], 02/17/2025 13:36:44 02/18/2002/17/2025 urina lysis , dipst ick Urobilinogen (reference range) 1 Not Available [address], [address], 02/17/2025 13:36:44 02/18/2002/17/2025 urina lysis , dipst ick Protein (reference range) 30 Not Available [address], [address], 02/17/2025 13:36:44 02/18/2002/17/2025 urina lysis , dipst ick pH (reference range 5-8.5) 5.5 Not Available [address], [address], 02/17/2025 13:36:44 02/18/2002/17/2025 urina lysis , dipst ick Blood (reference range:) non-He molyze d: Trace Not Available [address], [address], 02/17/2025 13:36:44 02/18/20 25 02/17/2025 urina lysis , dipst ick Specific [place] (reference range) 1.025 Not Available [address], [address], 02/17/2025 13:36:44 02/18/20 25 02/17/2025 urina lysis , dipst ick Ketone (reference range) trace Not Available [address], [address], 02/17/2025 13:36:44 02/18/2002/17/2025 urina lysis , dipst ick Bilirubin (reference range) small Not Available [address], [address], 02/17/2025 13:36:44 02/18/2002/17/2025 urina lysis , dipst ick Glucose (reference range) negati ve Not Available [address], [address], 02/17/2025 13:36:44 Result Notes None recorded. Problems Name Problem SNOMED Code Status Onset Date Resolution Date Notes Provider Name and Address Organization Details Recorded Time Hypertensive disorder 32103250 Active 2022 Ginomarco dodge, MARTHA - [facility] - [place] & [place] 3 10:37:24 Environmental allergy 994035293 Active 2022 Charo dodge, MARTHA - [facility] - [place] & [place] 3 10:37:30 Arthritis 2640911 Active 2022 Charo dodge, [facility] [place] [facility] 10:37:37 Depressive disorder 83629718 Active 2022 Charo dodge, MARTHA - [facility] - [place] & [place] 3 10:37:43 Denture present 114256713 Active 2022 Charo dodge, MARTHA [facility] & [place] 3 10:37:50 Problem Notes None recorded. Medical [...] Last Updated DateTime 02/17/2025 167.64 cm Nicolasa [facility] - [place] & [place] 02/17/2025 13:11:32 Social History None recorded. Functional Status Question Answer Note LastModified by Organization D etails LastModified Time What is your level of alcohol consumption? None [email or web address] Information not available 10/31/2022 Mental Status None recorded. Family History Relationship Description Onset Age of this Age Resolved Age Notes LastModified by Organization Details LastModified Time Father Heart failure [email or web address] Not available 2022 10:38:09 Mother Family history unknown [email or web address] Not available 2022 10:38:27 Sister Family history unknown [email or web address] Not available 2022 10:38:27 Medical History No medical history recorded. Gynecological HistoryNo gynecological history recorded. Obstetrics History GPAL:G 0 P 0 0 0 0 Past Encounters Encounter ID Performer Location Encounter Start Date Encounter Closed Date Diagnosis/Indication Diagnosis SNOMED-CT Code Diagnosis ICD10 Code Diagnosis IMO Codes Diagnosis Note [id number] Radhames Botello Jr, MD [facility] [address] [address] 02/17/2025 13:04:59 02/17/2025 13:36:30 Urge incontinence of urine 63212453 N39.41 [id number] Patient continues to enjoy good control of [...] (MEDICARE REPLACEMENT/ ADVANTAGE - HMO) Karrie Tobias [id number] Karrie Tobias Notes Date Note Type Note [...] new urologic problems. Radhames Botello Jr, MD [address] [place] [address], [address], [place], [address], [facility] & [place] 02/17/2025 13:41:24 OBGyn Episode No OBEpisode recorded.
--- OUTSIDE RECORDS SUMMARY | 2025-04-07 10:51 | XMS_ITS | Clinical Summary ---
Author Organization Healthcare Address [address] [place] [address] Care Team Providers Care Computer Art Instructor Name Role Phone Unavailable Primary Care Provider [...] [facility]-Bone Density Scan 1955 [facility]-Depression Screening 1955 [facility]-/Child/Adol SDOH Screenings 1955 [facility]- SDOH Screenings 1973 [facility]-Adult SDOH Screenings 1973 [facility]-DTaP,Tdap,and Td Vaccine s (1 - Tdap) 1974 CT Colonography 2000 Colonoscopy 2000 FIT-DNA 2000 FIT 2000 FOBT 2000 Sigmoidoscopy 2000 [facility]-Colorectal Cancer Screening 2000 [facility]-Pneumococcal Vaccine: 50 + Years (1 of 1 - PCV) 2005 [facility]-Zoster Vaccines (1 of 2) 2005 TAX-GLLSG-45 Vaccine ( - 20 24-25 season) 2025 [...]
--- OUTSIDE RECORDS SUMMARY | 2025-04-07 10:52 | XMS_ITS | Data Portability ---
Author Organization [place] - [facility] [place] Address [facility] [place] [address] Assessment No assessment recorded. Plan of Treatment Reminders Order Date Submit Date Provider Last Modified By Organization Details Last Modified Time Details Appointments OV EST 15 2025 01:00P M Radhames Botello Jr, MD Not available Not available Not available Lab urinalysi s, dipstick [address], [address], 02/19/2025 08:34:05 urinalysi s, dipstick 2022 [address], [address], 01/31/2023 09:26:57 urinalysi s, dipstick [address], [address], 12/21/2022 08:24:01 Referral None recorded. Procedures bladder scan (PROC) [address], [address], 10/31/2022 15:13:26 Surgeries None recorded. Imaging None recorded. Medication Orders Gemtesa 75 mg tablet 2024 025 [facility], [address], [place], [address], 02/17/2025 13:40:42 solifenac in 5 mg tablet 2024 025 [facility], [address], [place], [address], 02/17/2025 13:40:41 Gemtesa 75 mg tablet 2023 024 [facility][id number], [address], [id number], 02/05/2024 13:27:58 solifenac in 5 mg tablet 2023 024 [facility] #[id number], [address], [id number], 02/05/2024 13:27:58 Gemtesa 75 mg tablet 2022 023 [facility] #[id number], [address], [id number], 01/30/2023 13:39:52 solifenac in 10 mg tablet 2022 023 [facility] #[id number], [address], [id number], 12/19/2022 13:19:55 Patient TargetsNo targets recorded. Patient InstructionsNo instructions recorded. Reason for Referral None Reported. Results Created Date Observation Date Name Description Value Unit Range Abnormal Flag Note LastModifiedBy Organization Detail LastModifiedTime 11/01/1910/31/2022 bladd er scan (PROC ) Calculated Residual Urine: 16 Not Available [facility] [address], [place], [address], 10/31/2022 11:03:03 12/20/19 23 12/19/2022 urina lysis , dipst ick Leukocytes (reference range) small Not Available [address], [address], 12/19/2022 13:49:01 12/20/19 23 12/19/2022 urina lysis , dipst ick Nitrite (reference range:) negati ve Not Available [address], [address], 12/19/2022 13:49:01 12/20/19 23 12/19/2022 urina lysis , dipst ick Urobilinogen (reference range) 1 Not Available [address], [address], 12/19/2022 13:49:01 12/20/19 23 12/19/2022 urina lysis , dipst ick Protein (reference range) negati ve Not Available [address], [address], 12/19/2022 13:49:01 12/20/19 23 12/19/2022 urina lysis , dipst ick pH (reference range 5-8.5) 5.5 Not Available [address], [address], 12/19/2022 13:49:01 12/20/19 23 12/19/2022 urina lysis , dipst ick Blood (reference range:) hemoly zed: Trace Not Available [address], [address], 12/19/2022 13:49:01 12/20/19 23 12/19/2022 urina lysis , dipst ick Specific Raymond (reference range) 1.015 Not Available [address], [address], 12/19/2022 13:49:01 12/20/19 23 12/19/2022 urina lysis , dipst ick Ketone (reference range) trace Not Available [address], [address], 12/19/2022 13:49:01 12/20/19 23 12/19/2022 urina lysis , dipst ick Bilirubin (reference range) negati ve Not Available [address], [address], 12/19/2022 13:49:01 12/20/19 23 12/19/2022 urina lysis , dipst ick Glucose (reference range) negati ve Not Available [address], [address], 12/19/2022 13:49:01 01/31/20 23 01/30/2023 urina lysis , dipst ick Leukocytes (reference range) trace Not Available [address], [address], 01/30/2023 13:36:03 01/31/20 23 01/30/2023 urina lysis , dipst ick Nitrite (reference range:) negati ve Not Available [address], [address], 01/30/2023 13:36:03 01/31/20 23 01/30/2023 urina lysis , dipst ick Urobilinogen (reference range) 1 Not Available [address], [address], 01/30/2023 13:36:03 01/31/20 23 01/30/2023 urina lysis , dipst ick Protein (reference range) 100 Not Available [address], [address], 01/30/2023 13:36:03 01/31/20 23 01/30/2023 urina lysis , dipst ick pH (reference range 5-8.5) 6.0 Not Available [address], [address], 01/30/2023 13:36:03 01/31/20 23 01/30/2023 urina lysis , dipst ick Blood (reference range:) hemoly zed: Trace Not Available [address], [address], 01/30/2023 13:36:03 01/31/20 23 01/30/2023 urina lysis , dipst ick Specific Raymond (reference range) 1.030 Not Available [address], [address], 01/30/2023 13:36:03 01/31/20 23 01/30/2023 urina lysis , dipst ick Ketone (reference range) negati ve Not Available [address], [address], 01/30/2023 13:36:03 01/31/20 23 01/30/2023 urina lysis , dipst ick Bilirubin (reference range) small Not Available [address], [address], 01/30/2023 13:36:03 01/31/20 23 01/30/2023 urina lysis , dipst ick Glucose (reference range) negati ve Not Available [address], [address], 01/30/2023 13:36:03 02/18/20 25 02/17/2025 urina lysis , dipst ick Leukocytes (reference range) small Not Available [address] [place], [address], 02/17/2025 13:36:44 02/18/2002/17/2025 urina lysis , dipst ick Nitrite (reference range:) negati ve Not Available [address], [address], 02/17/2025 13:36:44 02/18/2002/17/2025 urina lysis , dipst ick Urobilinogen (reference range) 1 Not Available [address], [address], 02/17/2025 13:36:44 02/18/2002/17/2025 urina lysis , dipst ick Protein (reference range) 30 Not Available [address], [address], 02/17/2025 13:36:44 02/18/2002/17/2025 urina lysis , dipst ick pH (reference range 5-8.5) 5.5 Not Available [address], [address], 02/17/2025 13:36:44 02/18/2002/17/2025 urina lysis , dipst ick Blood (reference range:) non-He molyze d: Trace Not Available [address], [address], 02/17/2025 13:36:44 02/18/20 25 02/17/2025 urina lysis , dipst ick Specific Raymond (reference range) 1.025 Not Available [address], [address], 02/17/2025 13:36:44 02/18/20 25 02/17/2025 urina lysis , dipst ick Ketone (reference range) trace Not Available [address], [address], 02/17/2025 13:36:44 02/18/2002/17/2025 urina lysis , dipst ick Bilirubin (reference range) small Not Available [address], [address], 02/17/2025 13:36:44 02/18/2002/17/2025 urina lysis , dipst ick Glucose (reference range) negati ve Not Available [address], [address], 02/17/2025 13:36:44 Result Notes None recorded. Problems Name Problem SNOMED Code Status Onset Date Resolution Date Notes Provider Name and Address Organization Details Recorded Time Hypertensive disorder 09865004 Active 2022 Ginomarco dodge, MARTHA - [facility] - [place] & [place] 3 10:37:24 Environmental allergy 179481449 Active 2022 Charo dodge, MARTHA - [facility] - [place] & [place] 3 10:37:30 Arthritis 3112980 Active 2022 Charo dodge, MARTHA - [facility] - [facility] & [place] 3 10:37:37 Depressive disorder 04639357 Active 2022 Charo dodge, MARTHA - [facility] - [place] & [place] 3 10:37:43 Denture present 771516121 Active 2022 Charo dodge[facility] MAR[facility] [place] 3 10:37:50 Problem Notes None [...] Charo Vences [place] - [facility] [place] 12/19/2022 13:04:32 Date Recorded Body height Body temperature Provider N levon and Address Organization Details Last Updated DateTime 01/30/2023 167.64 cm 98.2 [degF] Charo Vences [place] - [facility] - [facility] & [place] 01/30/2023 12:52:59 Date Recorded Body height Provider Name an d Address Organization Details Last Updated DateTime 02/05/2024 167.64 cm Nessa Lopez [place] - [facility] - [place] & [place] 02/05/2024 12:47:01 Date Recorded Body height Provider Name an d Address Organization Details Last Updated DateTime 02/17/2025 167.64 cm Nicolasa Downs [place] - [facility] & [place] 02/17/2025 13:11:32 Social History None recorded. Functional Status Question Answer Note LastModified by Organization D etails LastModified Time What is your level of alcohol consumption? None [email or web address] Information not available 10/31/2022 Mental Status None recorded. Family History Relationship Description Onset Age of this Age Resolved Age Notes LastModified by Organization Details LastModified Time Father Heart failure dec Not available 2022 10:38:09 Mother Family history unknown dec Not available 2022 10:38:27 Sister Family history unknown [email or web address] Not available 2022 10:38:27 Medical History No medical history recorded. Gynecological HistoryNo gynecological history recorded. Obstetrics History GPAL:G 0 P 0 0 0 0 Past Encounters Encounter ID Performer Location Encounter Start Date Encounter Closed Date Diagnosis/Indication Diagnosis SNOMED-CT Code Diagnosis ICD10 Code Diagnosis IMO Codes Diagnosis Note [id number] Radhames Botello Jr, MD [facility] Urology [address] [address] 10/31/2022 09:57:05 10/31/2022 11:02:39 Urge incontinence of urine 34999489 N39.41 Patient with urge incontinen ce and urgency. She is entering her bladder out well and a urinalysis is within normal limits. We discussed treatment options and she was placed on Gemtesa. We also discussed timed voiding every 2-3 hours as well as decreasing her caffeine. We will see her back in 6 weeks in follow-up. [id number] Radhames Botello Jr, MD [facility]rology [address] [address] 12/19/2022 13:03:39 12/19/2022 13:20:21 Overactive urinary bladder 322545015 N32.81 Patient with no significan t improvemen t on the Gemtesa samples. We are going to add VESIcare 5 mg and see her back in 6 weeks. She is to change her coffee to de catheteriz ation and continue timed voiding. [id number] Radhames Botello Jr, MD [facility] Urology [place] [address] 01/30/2023 12:47:26 01/30/2023 13:34:37 Urge incontinence of urine 22501048 N39.41 Patient has had significan t improvemen t with the addition of VESIcare 5 mg to her Gemtesa. We will continue both. [id number] Radhames Botello Jr, MD [place] [address] 02/05/2024 12:44:42 02/05/2024 13:28:37 Urge incontinence of urine 46574620 N39.41 Patient had improvemen t her incontinen ce with solifenaci n added to her Gemtesa. she states she ran out of the solifenaci n in his currently only on Gemtesa. Her leakage episodes are more often and discussed that we need to restart the solifenaci n plus the Gemtesa. [id number] Radhames Botello Jr, MD [place] [phone] 02/17/2025 13:04:59 02/17/2025 13:36:30 Urge incontinence of urine 01370678 N39.41 [id number] Patient continues to enjoy good control of [...] (MEDICARE REPLACEMENT/ ADVANTAGE - HMO) Karrie Tobias [id number] Karrie Tobias 10/31/2022 1 [place] ([place]ICARE[place] Karrie Tobias [id number] Karrie Tobias Notes Date Note Type Note [...] urinalysis is normal. Radhames Botello Jr, MD [address] [place] [address], [address], [address], [facility] & [place] 10/31/2022 12:31:09 12/19/2022 text/html ROS as noted [...] going to decaf. Radhames Botello Jr, MD [address] [place] [address], [address], [address], [facility] & [place] 01/01/2023 11:08:34 01/30/2023 text/html ROS as noted [...] only for security. Radhames Botello Jr, MD [address] [place] [address], [address], [address], [facility] & [place] 01/30/2023 13:40:14 02/05/2024 text/html ROS as noted [...] during the day. Radhames Botello Jr, MD [address] [place] [address], [address], [place], [address], [facility] & [place] 02/05/2024 13:28:14 02/17/2025 text/html ROS as noted in the HPI Patient is a 69-year-old white female with a history of urge incontinence. She returns today for routine yearly checkup. She continues on Gemtesa and solifenacin and states good control. She wears 1 pad at night for security. Denies any new urologic problems. Radhames Botello Jr, MD [address], [address], [place], [address], [place] - [facility] & [place] 02/17/2025 13:41:24 OBGyn Episode No OBEpisode recorded.
--- OUTSIDE RECORDS SUMMARY | 2025-04-07 10:52 | XMS_ITS | Clinical Summary ---
Author Organization [facility] Address [address] [place] [address] Care Team Providers Care Flight Follower Name Role Phone Dionte Archibald BRITT Primary [...] - 200 mg/dL 01/12/2020 3:00 PM EDT [facility] Triglycerides 112 0 - 150 mg/dL 01/12/2020 3:00 PM EDT [facility] HDL Cholesterol 54 40 - 60 mg/dL 01/12/2020 3:00 PM EDT [facility] LDL Cholesterol 104(H) 0 - 100 mg/dL 01/12/2020 3:00 PM EDT [facility] VLDL Cholesterol 22.4 5 - 40 mg/dL 01/12/2020 3:00 PM EDT [facility] LDL/HDL Ratio 1.92 01/12/2020 3:00 PM EDT [facility] Blood Venipuncture / Unknown 01/12/2020 8:50 AM EDT 01/12/2020 8:50 AM EDT Narrative [facility] - 01/12/2020 3:00 PM EDT [...] 160-189 mg/dL Very High >189 mg/dL us Lro Harrison APRN LAB BLOOD ORDERABLES Final R esult [facility]
[address] [place] [address], * Hepatitis C Antibody (01/26/2019 2:36 PM EDT) Hep C Virus Ab <0.1 0.0 - 0.9 s/co ratio [facility] Comment: Negative: < 0.8 Indeterminate: 0.8 - 0.9 Positive: > 0.9 The CDC recommends that a positive HCV antibody result be followed up with a HCV Nucleic Acid Amplification test (561222). Blood 01/26/2019 2:36 PM EDT 01/27/2019 Comment:BLOOD Narrative [facility] (AMBULATORY) - 01/27/2019 12:09 PM EDT Performed at: 01 - [facility] [address] [place], [place] [id number] Shipboard Intelligence Analyst: Konstantin Da Silva PhD, Phone: [phone] Lor Harrison APRN LAB BLOOD ORDERABLES Final R esult [facility] [address] [place] [address], [facility] [address] [place] [address], * Mammo Screening Digital Tomosynthesis Bilateral With [...] Maintenance Insurance [id number] MEDICARE ADVANTAGE Care Teams Flight Follower Relationship Specialty Start Date End Date Dionte Archibald APRN [address] [facility] [address] [place] [phone] PCP - General Family Medicine 11/16/20
--- OUTSIDE RECORDS SUMMARY | 2025-04-07 10:53 | XMS_ITS | Encounter Summary ---
Author Organization [facility] Address [address] [place] [address] Care Team Providers Care Turning Lathe Tender Name Role Phone Dionte Archibald NIB INSPECTOR Primary Care Provider + Reason for Visit * Reason Comments Med Refill Encounter Details Date Type Department Care Team (Late st Contact Info) Description 09/21/2021 Refill [facility] [address] [facility] [address] [place] [id number] Dionte Archibald APRN [address] [facility] [address] [place] [address] Psoriasis with arthropathy Social History Tobacco Use [...] arthropathy documented in this encounter Care Teams Turning Lathe Tender Relationship Specialty Start Date End Date Dionte Archibald APRN [address] [employer] [address] [place], [place] [id number] PCP - General Family Medicine 11/16/20 documented as of this encounter
--- OUTSIDE RECORDS SUMMARY | 2025-04-07 10:53 | XMS_ITS | Continuity of Care Document ---
Author Organization [facility], RHEUMATOLOGY SB Address [address] [place] [address] Care Team Providers Care Welfare Administrator Name Role Phone JAD MCINTYRE Primary Care [...] flares indicating that flares may be multifactorial. [email or web address] Not available 03/24/2025 06:23:48 Plan of Treatment Reminders Order Date Submit Date Provider Last Modified By Organization Details Last Modified Time Details Appointments None recorded. Lab None recorded. Referral None recorded. Procedures None recorded. Surgeries None recorded. Imaging None recorded. Medication Orders Skyrizi 150 mg/mL subcutaneou s pen injector 2024 [facility], [address], [place], [address], 16:31:04 meloxicam 15 mg tablet 2024 025 [facility], [address], [place], [address], 16:31:03 clobetasol 0.05 % topical ointment 2024 025 [facility], [address] , [place], [address], 16:31:01 ropinirole 2 mg tablet 2024 025 [facility], [address] [facility], [place], [address], 16:31:01 Patient TargetsNo targets recorded. Patient Instructions Encounter Date Encounter Id Patient Instructions Last Modified By Organization Details Last Modified Time 03/23/2025 [id number] medical record request* - Please send last labs [email or web address] Not available 03/31/2025 16:07:28 - Continue takin g Skyrizi every three months. - Monitor symptoms and restart methotrexate if pain or psoriasis worsens. - Discuss alternative treatments for restless legs syndrome with your primary care physician. - Use clobetasol ointment during psoriasis flare-ups. [email or web address] Not available 03/23/2025 16:35:14 Reason for Referral None Reported. Problems Name Problem SNOMED Code Status Onset Date Resolution Date Notes Provider Name and Address Organization Details Recorded Time Pain in right foot 13616318333 9107 Active 2015 From Automated Load;Prov ider: Keira Bullard;S tatus: Active Not Available [facility] 6 05:07:30 Pain in left foot 54121730944 9107 Active 2015 From Automated Load;Prov ider: Keira Bullard;S tatus: Active Not Available [facility] 6 05:07:30 Pain of right hand 80963633001 9109 Active 2015 From Automated Load;Prov ider: Keira Bullard;S tatus: Active Not Available [facility] 6 05:07:30 Hand pain 22070250 Active 2015 From Automated Load;Prov ider: Keira Bullard;S tatus: Active Not Available [facility] 6 05:07:30 Erythrocy te sedimenta tion rate above reference range 213477064 Active 2015 From Automated Load;Prov ider: Keira Bullard;S tatus: Active Not Available [facility] 6 05:07:30 Vitamin D deficienc y 11013235 Active 2015 From Automated Load;Prov ider: Keira Bullard;S tatus: Active Not Available [facility] 6 05:07:30 Psoriasis with arthropat hy Active 2015 From Automated Load;Prov ider: Keira Bullard;S tatus: Active Not Available [facility] 6 05:07:30 Small plaque parapsori asis 10498443 Active 2015 From Automated Load;Prov ider: Keira Bullard;S tatus: Active Not Available [facility] 6 05:07:30 Problem Notes None recorded. Procedures Surgical History Date Name Laterality Status Provider Name and Address Organization Details Recorded Time Orthopedic Surgery completed Lilli Guardado [facility] 11/07/2016 11:28:18 Imaging Results None recorded. Procedure Notes None recorded. Medical Equipment None Reported. Allergies Allergen ID Allergen Name Allergen Category Reaction Reaction Severity Criticality Documentation Date Start Date Code Code System Note Provider Name and Address Organization Details Recorded Time 054451 Product containin g penicilli n (product) medicatio n Not available Not available Not available 05/04/20162015 41316 8001 SNOMED Comme nt: Creat ed By: Emigdio ivan Date: 016 2:20: 38 PM; Not Available [facility] 6 10:17:34 776099 prednison e medicatio n insomnia moderate Not available 08/08/2020 8640 RxNorm nervo usnes s Rosana Bocanegra [facility] 1 11:22:29 406507 hydroxyzi ne Not available nausea Not available Not available 07/20/2021 5553 RxNorm Cary Vegaut-Aguilar hays [facility] 2 14:20:37 347272 venlafaxi ne medicatio n Not available Not available Not available 07/20/2021 98893 RxNorm Cary Farrarbout-Aguilar lis MARTHA dodge [facility] 14:20:49 Medications Name Sig Start Date Stop [...] mL twice a day by oral route. 03/23 completed pt not taking this Not Available [...] Updated DateTime 5 157.48 cm 51.2 kg/m2 133061. 86 g 16 /min 66 /min 98 % 98 % 114/82 mm[Hg] [facility] 5 15:57:47 Social History Question Answer Notes LastModified by [employer] Details LastModified Time Tobacco Smoking Status Never Smoker Therese Izaguirre [facility] 07/02/2016 14:19:06 How Much Tobacco Do You [...] 01/23/2019 Have You Recently Traveled Abroad? No Information not available 04/19/2022 Sex: Female Functional Status Question Answer Note LastModified by [employer] Details LastModified Time Do you use any illicit or recreational drugs? No Information not available 04/03/2021 Do you or have you ever used any other forms of tobacco or nicotine? No Information not available 04/03/2021 What is your level of alcohol consumption? None [email or web address] Information not available 07/02/2016 Do you or [...] Time Father No current problems or disability [email or web address] Not available 10/01 11:30:51 Mother No current problems or disability [email or web address] Not available 10/01 11:30:51 Unspecified Relation Asthma [...] available 2016 11:27:40 Medical History Condition Response Diabetes N Allergies/Hayfever Y Bleeding Disorder N Arthritis Y Emphysema N Heart Disease N Acid Reflux (GERD) N Rheumatoid Arthritis Y Hypertension Y Asthma N COPD N Gynecological HistoryNo gynecological history recorded. Obstetrics History GPAL:G 0 P 0 0 0 0 Immunizations Vaccine Type Date Status Note Provider Nam e and Address Organization Details Recorded Time Influenza, split virus, quadrivalent, PF 03/13/2016 completed Not Available [facility] 15:16:55 Past Encounters Encounter ID Performer Location Encounter Start Date Encounter Closed Date Diagnosis/Indication Diagnosis SNOMED-CT Code Diagnosis ICD10 Code Diagnosis IMO Codes Diagnosis Note [id number] KAUSHAL BANSAL MD [facility] [address] [place] [address] 03/23/2025 15:15:31 03/25/2025 04:42:10 Psoriasis with arthropathy 26675316 L40.50 recurring scalp and skin psoriasis Previous Rx: leflunomid e, methotrexa te - Continue Skyrizi 150 mg every three months- hold methotrexa te for now to see if skyrizi can manage her symptoms alone- continue meloxicam 15 mg daily for now- Monitor for increased pain or psoriasis flare-ups, and restart methotrexa te if necessary. Restless l egs syndrome 41918671 G25.81 - Continue ropinirole but consider discussing alternativ e treatments with the new primary care physician due to gastrointe stinal discomfort . Long-term drug therapy 810436668 Z79.899 - labs every 6 months on [...] vaccines. No live vaccines. Tuberculos is screening 928154233 Z11.1 negative 08/26/2024 Psoriasis of scalp 66556 8008 L40.9 - Use clobetasol ointment for topical treatment during flare-ups. - She uses doxycyclin e during severe flare-ups affecting the stomach and scalp.- continue follow up with dermatolog y Spinal nilay nosis of lumbar region 84221473 M48.062 076321 Limits her gait- continue follow up with PCP Health Concerns Section Related Observation LastModified by Organization Detai ls LastModified Time None Recorded Concern Status LastModified by Organization Details LastModified Time None Recorded Payers Encounter Date Sequence Insurance Name Policy Number Policy Siddiqi Covered Member ID Siddiqi Member ID Guarantor Name 03/23/2025 2 [employer] (MEDICARE SUPPLEMENT) Karrie Tobias [id number] Karrie Tobias 03/23/2025 1 [employer] - GOLD PLUS (MEDICARE REPLACEMENT/ ADVANTAGE - HMO) Karrie Tobias [id number] Karrie Tobias Notes Date Note Type Note Provider Name and Address Organization Details Recorded Time 03/23/2025 text/html ROS as noted in the HPI The patient is a 69-year-old female presenting with psoriatic arthritis. She is a previous patient of Keira Bullard and this is my first time meeting [...] note prior to signature. KAUSHAL BANSAL MD [address] [place] [address], [phone], [facility] 03/24/2025 06:38:05 OBGyn Episode No OBEpisode recorded.
--- OUTSIDE RECORDS SUMMARY | 2025-04-07 10:53 | XMS_ITS | Data Portability ---
Author Organization [place] [facility] [place] [facility] Address [address] [place] [address] Care Team Providers Care Fire Chief Deputy Name Role Phone JAD MCINTYRE Primary Care [...] flares indicating that flares may be multifactorial. [email or web address] Not available 03/24/2025 06:23:48 Plan of Treatment Reminders Order Date Submit Date Provider Last Modified By Organization Details Last Modified Time Details Appointments None recorded. Lab Mycobacteri um tuberculosi s stimulated gamma interferon, qual, blood 2024 025 [facility], [address] [place] [address], [id number], 5 17:30:17 CBC w/ auto diff 2024 025 [facility], [address] [place] [address], [address], 10:07:33 creatinine, serum or plasma 2024 025 [facility], [address] [place] [address], [address], 5 10:32:12 ALT (alanine aminotransf erase), serum or plasma 2024 025 [facility], [address] [place] [address], [address], 5 10:32:15 AST/SGOT (aspartate aminotransf erase), serum or plasma 2024 025 [facility], [address] [place] [address], [address], 5 10:32:14 CBC w/ auto diff 2023 024 [facility], [address] [place] [address], [address], 4 15:49:55 creatinine, serum or plasma 2023 024 [facility], [address] [place] [address], [address], 4 17:31:28 ALT (alanine aminotransf erase), serum or plasma 2023 024 [facility], [address] [place] [address], [address], 4 17:31:26 AST/SGOT (aspartate aminotransf erase), serum or plasma 2023 024 [facility], [address] [place] [address], [address], 4 17:31:30 CBC w/ auto diff 2023 024 [facility], [address] [place] [address], [address], 4 17:26:25 creatinine, serum or plasma 2023 024 [facility], [address] [place] [address], [address], 4 17:41:37 ALT (alanine aminotransf erase), serum or plasma 2023 024 [facility], [address] [place] [address], [address], 4 17:41:35 AST/SGOT (aspartate aminotransf erase), serum or plasma 2023 024 [facility], [address] [place] [address], [address], 4 17:41:39 Mycobacteri um tuberculosi s stimulated gamma interferon, qual, blood 2023 024 [facility], [address] [place] [address], [address], 4 15:54:30 CBC w/ auto diff 2023 024 [facility], [address] [place] [address], [address], 4 16:38:23 creatinine, serum or plasma 2023 024 [facility], [address] [place] [address], [address], 4 16:54:25 ALT (alanine aminotransf erase), serum or plasma 2023 024 [facility], [address] [place] [address], [address], 4 16:54:23 AST/SGOT (aspartate aminotransf erase), serum or plasma 2023 024 [facility], [address] [place] [address] [place], [address], 16:54:27 Referral None recorded. Procedures None recorded. Surgeries None recorded. Imaging None recorded. Medication Orders Skyrizi 150 mg/mL subcutaneou s pen injector 2024 025 [facility], [address], [place], [address], 16:31:04 meloxicam 15 mg tablet 2024 [facility], [address], [place], [address], 16:31:03 clobetasol 0.05 % topical ointment 2024 025 [facility], [address], [place], [address], 16:31:01 ropinirole 2 mg tablet 2024 025 [facility], [address], [place], [address], 16:31:01 methotrexat e sodium 2.5 mg tablet 2024 025 [email or web address] 7 [facility], [address], [place], [address], 16:29:03 folic acid 1 mg tablet 2024 025 [email or web address] [facility], [address], [place], [address], 16:28:59 Skyrizi 150 mg/mL subcutaneou s pen injector 2024 025 [facility], [address], [place], [address], 03/19/202 5 09:11:50 meloxicam 15 mg tablet 2024 025 [facility], [address], [place], [address], 5 09:11:56 valacyclovi r 1 gram tablet 2024 025 [facility], [address], [place], [address], 5 09:11:48 ropinirole 2 mg tablet 2024 025 [facility], [address], [place], [address], 5 09:11:56 clobetasol 0.05 % shampoo 2023 024 [facility] #15536, [address], [id number], 4 15:01:25 clobetasol 0.05 % scalp solution 2023 024 [facility] #43960, [address], [id number], 4 15:01:24 valacyclovi r 1 gram tablet 2023 024 [facility], [address], [place], [address], 4 15:01:21 ropinirole 2 mg tablet 2023 024 [facility], [address], [place], [address], 4 15:01:19 Cosentyx Pen 300 mg/2 pens (150 mg/mL) subcutaneou s pen injector 2023 024 [facility], [address], [place], [address], 5 14:26:25 methotrexat e sodium 2.5 mg tablet 2023 [email or web address] [facility], [address], [place], [address], 16:29:03 folic acid 1 mg tablet 2023 [email or web address] 7 [facility], [address], [place], [address], 16:28:59 Skyrizi 150 mg/mL subcutaneou s pen injector 2023 [facility], [address], [place], [address], 4 15:01:20 Skyrizi 150 mg/mL subcutaneou s pen injector 2023 [facility], [address], [place], [address], 4 15:01:20 meloxicam 15 mg tablet 2023 [facility], [address], [place], [address], 4 15:04:21 ondansetron 4 mg disintegrat ing tablet 2023 [email or web address] [facility], [address], [place], [address], 5 08:45:52 clobetasol 0.05 % shampoo 2023 [facility] #15959, [address], [id number], 4 16:21:22 clobetasol 0.05 % scalp solution 2023 [facility] #86187, [address] [address] [place], [id number], 4 16:21:19 valacyclovi r 1 gram tablet 2023 [facility], [address], [place], [address], 4 16:18:03 ropinirole 2 mg tablet 2023 [facility], [address], [place], [address], 4 16:18:01 Cosentyx Pen 300 mg/2 pens (150 mg/mL) subcutaneou s pen injector 2023 [facility], [address], [place], [address], 5 09:07:39 clobetasol 0.05 % topical ointment 2023 [facility], [address], [place], [address], 4 16:18:05 methotrexat e sodium 2.5 mg tablet 2023 024 [email or web address] [address] [facility], [address], [place], [address], 5 16:29:03 folic acid 1 mg tablet [email or web address] [facility], [address], [place], [address], 5 16:28:59 Depo-Medrol 80 mg/mL suspension for injection 2023 [email or web address] Not available 5 16:28:34 doxycycline hyclate 100 mg tablet 2023 [email or web address] [facility] #23631, [address] [address] [address], [place], [id number], 5 16:28:20 mupirocin 2 % topical ointment 2023 024 [facility] #76354, [address] [address] [address], [place], [id number], 4 16:22:32 ondansetron 4 mg disintegrat ing tablet 2023 [facility], [address], [place], [address], 4 16:18:06 clobetasol 0.05 % shampoo 2023 024 [facility] #09619, [address] [address] [address], [place], [id number], 4 15:27:19 clobetasol 0.05 % scalp solution 2023 024 [facility] #54326, [address] [address] [address], [place], [id number], 4 15:27:18 valacyclovi r 1 gram tablet 2023 024 [facility], [address], [place], [address], 4 15:23:41 ropinirole 2 mg tablet 2023 024 [facility], [address], [place], [address], 4 15:23:41 Cosentyx Pen 300 mg/2 pens (150 mg/mL) subcutaneou s pen injector 2023 [facility], [address], [place], [address], 5 09:07:39 clobetasol 0.05 % topical ointment 2023 024 [facility], [address], [place], [address], 4 15:23:41 methotrexat e sodium 2.5 mg tablet [address] [facility], [address], [place], [address], 5 16:29:03 folic acid 1 mg tablet [email or web address] [facility], [address], [place], [address], 5 16:28:59 Depo-Medrol 80 mg/mL suspension for injection 2023 024 [id number] Not available 16:28:34 ondansetron 4 mg disintegrat ing tablet 2023 024 [facility], [address], [place], [address], 4 15:23:42 Patient TargetsNo targets recorded. Patient Instructions Encounter Date Encounter Id Patient Instructions Last Modified By Organization Details Last Modified Time 10/11/2023 [id number] medical record request* - labs from Dr. Owens on 06/2023 Not available 10/21/2023 08:41:20 03/23/2025 [id number] medical record request* - Please send last labs [email or web address] Not available 03/31/2025 16:07:28 - Continue timmy Krishna every three months. [...] 10*3/ uL 3.8-10 .8 low Not Available [facility] [address] [place] [address], [address], 10/11/2023 16:38:22 10/11/19 24 10/11/2023 COMPL ETE BLOOD COUNT red blood cells 4.16 10*6/ uL 3.80-5 .20 normal Not Available [facility] [address] [place] [address], [address], 10/11/2023 16:38:22 10/11/19 24 10/11/2023 COMPL ETE BLOOD COUNT hemoglobin 12.9 g/dL 12.0-1 6.0 normal Not Available [facility] [address] [place] [address], [address], 10/11/2023 16:38:22 10/11/19 24 10/11/2023 COMPL ETE BLOOD COUNT hematocrit 38.8 % 35.0-4 7.0 normal Not Available [facility] [address] [place] [address], [address], 10/11/2023 16:38:22 10/11/19 24 10/11/2023 COMPL ETE BLOOD COUNT MCV 93 fL 80-100 normal Not Available [facility] [address] [place] [address], [address], 10/11/2023 16:38:22 10/11/19 24 10/11/2023 COMPL ETE BLOOD COUNT MCH 31 pg 26-35 normal Not Available [facility] [address] [place] [address], [address], 10/11/2023 16:38:22 10/11/19 24 10/11/2023 COMPL ETE BLOOD COUNT MCHC 33 g/dL 32-36 normal Not Available [facility] [address] [place] [address], [address], 10/11/2023 16:38:22 10/11/19 24 10/11/2023 COMPL ETE BLOOD COUNT RDW 14.1 % 11.0-1 5.0 normal Not Available [facility] [address] [place] [address], [address], 10/11/2023 16:38:22 10/11/19 24 10/11/2023 COMPL ETE BLOOD COUNT MPV 9.0 fL 6.2-10 .5 normal Not Available [facility] [address] [place] [address], [address], 10/11/2023 16:38:22 10/11/19 24 10/11/2023 COMPL ETE BLOOD COUNT platelet count 209 10*3/ uL 150-40 0 normal Not Available [facility] [address] [place] [address], [address], 10/11/2023 16:38:22 10/11/19 24 10/11/2023 COMPL ETE BLOOD COUNT neutrophil,a bsolute 2.3 10*3/ uL 1.6-8. 4 normal Not Available [facility] [address] [place] [address], [address], 10/11/2023 16:38:22 10/11/19 24 10/11/2023 COMPL ETE BLOOD COUNT lymphocyte,a bsolute 0.8 10*3/ uL 0.4-5. 1 normal Not Available [facility] [address] [place] [address], [address], 10/11/2023 16:38:22 10/11/19 24 10/11/2023 COMPL ETE BLOOD COUNT monocyte,abs olute 0.3 10*3/ uL 0.0-1. 2 normal Not Available [facility] [address] [place] [address], [address], 10/11/2023 16:38:22 10/11/19 24 10/11/2023 COMPL ETE BLOOD COUNT eosinophil,a bsolute 0.1 10*3/ uL 0.0-0. 8 normal Not Available [facility] [address] [place] [address], [address], 10/11/2023 16:38:22 10/11/19 24 10/11/2023 COMPL ETE BLOOD COUNT basophil,abs olute 0.0 10*3/ uL 0.0-0. 3 normal Not Available [facility] [address] [place] [address], [address], 10/11/2023 16:38:22 10/11/19 24 10/11/2023 COMPL ETE BLOOD COUNT % neutrophils 63.7 % 42.0-7 8.0 normal Not Available [facility] [address] [place] [address], [address], 10/11/2023 16:38:22 10/11/19 24 10/11/2023 COMPL ETE BLOOD COUNT % lymphocytes 22.5 % 11.0-4 7.0 normal Not Available [facility] [address] [place] [address], [address], 10/11/2023 16:38:22 10/11/19 24 10/11/2023 COMPL ETE BLOOD COUNT % monocytes 9.7 % 0.0-11 .0 normal Not Available [facility] [address] [place] [address], [address], 10/11/2023 16:38:22 10/11/19 24 10/11/2023 COMPL ETE BLOOD COUNT % eosinophils 3.1 % 0.0-7. 0 normal Not Available [facility] [address] [place] [address], [address], 10/11/2023 16:38:22 10/11/19 24 10/11/2023 COMPL ETE BLOOD COUNT % basophils 1.0 % 0.0-3. 0 normal Not Available [facility] [address] [place] [address], [address], 10/11/2023 16:38:22 10/11/19 24 10/11/2023 COMPL ETE BLOOD COUNT nucleated red cells 0.1 % 0.0-0. 9 normal Not Available [facility] [address] [place] [address], [address], 10/11/2023 16:38:22 10/11/19 24 10/11/2023 COMPL ETE BLOOD COUNT nucleated RBCs, absolute 0.00 10*3/ uL not estab. normal Not Available [facility] [address] [place] [address], [address], 10/11/2023 16:38:22 10/11/19 24 10/11/2023 ALT ALT 13 U/L 0-33 normal Not Available [facility] [address] [place] [address], [address], 10/11/2023 16:54:23 10/11/19 24 10/11/2023 CREAT ININE creatinine 0.70 mg/dL 0.50-0 .95 normal Not Available [facility] [address] [place] [address], [address], 10/11/2023 16:54:25 10/11/19 24 10/11/2023 AST AST 22 U/L 0-32 normal Not Available [facility] [address] [place] [address], [address], 10/11/2023 16:54:27 10/11/19 24 10/14/2023 QUANT IFERO N TB GOLD qtb gold NEGATI VE negati ve normal Negat penny test resul t. M. tuber culos is compl ex infec tion unlik lyn. Not Available [facility] [address] [place], [address], 10/14/2023 15:54:30 10/11/19 24 10/14/2023 QUANT IFERO N TB GOLD nil 0.02 IU/mL normal Not Available [facility] [address] [place] [address], [address], 10/14/2023 15:54:30 10/11/19 24 10/14/2023 QUANT IFERO N TB GOLD mitogen nil 2.72 IU/mL normal Not Available [facility] [address] [place], [address], 10/14/2023 15:54:30 10/11/19 24 10/14/2023 QUANT IFERO N TB GOLD TB1 nil <0.00 IU/mL normal Not Available [facility] [address] [place], [address], 10/14/2023 15:54:30 10/11/19 24 10/14/2023 QUANT IFERO [...] refer to https ://ed christopherati on.qu chikis deandrePlivo. MedDay/f aq/FA Q204 (This link is being provi ded for infor mercedes wise/ luana morton purpo ses only. ) Not Available [facility] [address] [place] [address], [address], 10/14/2023 15:54:30 01/17/2001/17/2024 COMPL ETE BLOOD COUNT white blood cells 3.5 10*3/ uL 3.8-10 .8 low Not Available [facility] [address] [place] [address], [address], 01/17/2024 17:26:25 01/17/20 24 01/17/2024 COMPL ETE BLOOD COUNT red blood cells 4.18 10*6/ uL 3.80-5 .20 normal Not Available [facility] [address] [place] [address], [address], 01/17/2024 17:26:25 01/17/20 24 01/17/2024 COMPL ETE BLOOD COUNT hemoglobin 13.0 g/dL 12.0-1 6.0 normal Not Available [facility] [address] [place] [address], [address], 01/17/2024 17:26:25 01/17/2001/17/2024 COMPL ETE BLOOD COUNT hematocrit 38.9 % 35.0-4 7.0 normal Not Available [facility] [address] [place] [address], [address], 01/17/2024 17:26:25 01/17/2001/17/2024 COMPL ETE BLOOD COUNT MCV 93 fL 80-100 normal Not Available [facility] [address] [place] [address], [address], 01/17/2024 17:26:25 01/17/20 24 01/17/2024 COMPL ETE BLOOD COUNT MCH 31 pg 26-35 normal Not Available [facility] [address] [place] [address], [address], 01/17/2024 17:26:25 01/17/20 24 01/17/2024 COMPL ETE BLOOD COUNT MCHC 34 g/dL 32-36 normal Not Available [facility] [address] [place] [address], [address], 01/17/2024 17:26:25 01/17/20 24 01/17/2024 COMPL ETE BLOOD COUNT RDW 15.3 % 11.0-1 5.0 high Not Available [facility] [address] [place] [address], [address], 01/17/2024 17:26:25 01/17/20 24 01/17/2024 COMPL ETE BLOOD COUNT MPV 8.2 fL 6.2-10 .5 normal Not Available [facility] [address] [place] [address], [address], 01/17/2024 17:26:25 01/17/20 24 01/17/2024 COMPL ETE BLOOD COUNT platelet count 222 10*3/ uL 150-40 0 normal Not Available [facility] [address] [place] [address], [address], 01/17/2024 17:26:25 01/17/20 24 01/17/2024 COMPL ETE BLOOD COUNT neutrophil,a bsolute 2.4 10*3/ uL 1.6-8. 4 normal Not Available [facility] [address] [place] [address], [address], 01/17/2024 17:26:25 01/17/20 24 01/17/2024 COMPL ETE BLOOD COUNT lymphocyte,a bsolute 0.8 10*3/ uL 0.4-5. 1 normal Not Available [facility] [address] [place] [address], [address], 01/17/2024 17:26:25 01/17/20 24 01/17/2024 COMPL ETE BLOOD COUNT monocyte,abs olute 0.2 10*3/ uL 0.0-1. 2 normal Not Available [facility] [address] [place] [address], [address], 01/17/2024 17:26:25 01/17/20 24 01/17/2024 COMPL ETE BLOOD COUNT eosinophil,a bsolute 0.1 10*3/ uL 0.0-0. 8 normal Not Available [facility] [address] [place] [address], [address], 01/17/2024 17:26:25 01/17/20 24 01/17/2024 COMPL ETE BLOOD COUNT basophil,abs olute 0.0 10*3/ uL 0.0-0. 3 normal Not Available [facility] [address] [place] [address], [address], 01/17/2024 17:26:25 01/17/20 24 01/17/2024 COMPL ETE BLOOD COUNT % neutrophils 69.7 % 42.0-7 8.0 normal Not Available [facility] [address] [place] [address], [address], 01/17/2024 17:26:25 01/17/20 24 01/17/2024 COMPL ETE BLOOD COUNT % lymphocytes 22.1 % 11.0-4 7.0 normal Not Available [facility] [address] [place] [address], [address], 01/17/2024 17:26:25 01/17/20 24 01/17/2024 COMPL ETE BLOOD COUNT % monocytes 5.6 % 0.0-11 .0 normal Not Available [facility] [address] [place] [address], [address], 01/17/2024 17:26:25 01/17/20 24 01/17/2024 COMPL ETE BLOOD COUNT % eosinophils 1.6 % 0.0-7. 0 normal Not Available [facility] [address] [place] [address], [address], 01/17/2024 17:26:25 01/17/20 24 01/17/2024 COMPL ETE BLOOD COUNT % basophils 1.0 % 0.0-3. 0 normal Not Available [facility] [address] [place] [address], [address], 01/17/2024 17:26:25 01/17/20 24 01/17/2024 COMPL ETE BLOOD COUNT nucleated red cells 0.1 % 0.0-0. 9 normal Not Available [facility] [address] [place] [address], [address], 01/17/2024 17:26:25 01/17/20 24 01/17/2024 COMPL ETE BLOOD COUNT nucleated RBCs, absolute 0.00 10*3/ uL not estab. normal Not Available [facility] [address] [place] [address], [address], 01/17/2024 17:26:25 01/17/20 24 01/17/2024 ALT ALT 14 U/L 0-33 normal Not Available [facility] [address] [place] [address], [address], 01/17/2024 17:41:35 01/17/20 24 01/17/2024 CREAT ININE creatinine 0.86 mg/dL 0.50-0 .95 normal Not Available [facility] [address] [place] [address], [address], 01/17/2024 17:41:37 01/17/20 24 01/17/2024 AST AST 22 U/L 0-32 normal Not Available [facility] [address] [place] [address], [address], 01/17/2024 17:41:39 04/14/20 24 04/14/2024 COMPL ETE BLOOD COUNT white blood cells 3.3 10*3/ uL 3.8-10 .8 low Not Available [facility] [address] [place] [address], [address], 04/14/2024 15:49:55 04/14/20 24 04/14/2024 COMPL ETE BLOOD COUNT red blood cells 3.85 10*6/ uL 3.80-5 .20 normal Not Available [facility] [address] [place] [address], [address], 04/14/2024 15:49:55 04/14/20 24 04/14/2024 COMPL ETE BLOOD COUNT hemoglobin 12.7 g/dL 12.0-1 6.0 normal Not Available [facility] [address] [place] [address], [address], 04/14/2024 15:49:55 04/14/20 24 04/14/2024 COMPL ETE BLOOD COUNT hematocrit 38.1 % 35.0-4 7.0 normal Not Available [facility] [address] [place] [address], [address], 04/14/2024 15:49:55 04/14/20 24 04/14/2024 COMPL ETE BLOOD COUNT MCV 99 fL 80-100 normal Not Available [facility] [address] [place] [address], [address], 04/14/2024 15:49:55 04/14/20 24 04/14/2024 COMPL ETE BLOOD COUNT MCH 33 pg 26-35 normal Not Available [facility] [address] [place] [address], [address], 04/14/2024 15:49:55 04/14/20 24 04/14/2024 COMPL ETE BLOOD COUNT MCHC 33 g/dL 32-36 normal Not Available [facility] [address] [place] [address], [address], 04/14/2024 15:49:55 04/14/20 24 04/14/2024 COMPL ETE BLOOD COUNT RDW 17.4 % 11.0-1 5.0 high Not Available [facility] [address] [place] [address], [address], 04/14/2024 15:49:55 04/14/20 24 04/14/2024 COMPL ETE BLOOD COUNT MPV 8.6 fL 6.2-10 .5 normal Not Available [facility] [address] [place] [address], [address], 04/14/2024 15:49:55 04/14/20 24 04/14/2024 COMPL ETE BLOOD COUNT platelet count 229 10*3/ uL 150-40 0 normal Not Available [facility] [address] [place] [address], [address], 04/14/2024 15:49:55 04/14/20 24 04/14/2024 COMPL ETE BLOOD COUNT neutrophil,a bsolute 2.1 10*3/ uL 1.6-8. 4 normal Not Available [facility] Laboratory [address] [place] [address], [address], 04/14/2024 15:49:55 04/14/20 24 04/14/2024 COMPL ETE BLOOD COUNT lymphocyte,a bsolute 0.7 10*3/ uL 0.4-5. 1 normal Not Available [facility] [address] [place] [address], [address], 04/14/2024 15:49:55 04/14/20 24 04/14/2024 COMPL ETE BLOOD COUNT monocyte,abs olute 0.4 10*3/ uL 0.0-1. 2 normal Not Available [facility] [address] [place] [address], [address], 04/14/2024 15:49:55 04/14/20 24 04/14/2024 COMPL ETE BLOOD COUNT eosinophil,a bsolute 0.1 10*3/ uL 0.0-0. 8 normal Not Available [facility] [address] [place] [address], [address], 04/14/2024 15:49:55 04/14/20 24 04/14/2024 COMPL ETE BLOOD COUNT basophil,abs olute 0.0 10*3/ uL 0.0-0. 3 normal Not Available [facility] [address] [place] [address], [address], 04/14/2024 15:49:55 04/14/20 24 04/14/2024 COMPL ETE BLOOD COUNT % neutrophils 62.9 % 42.0-7 8.0 normal Not Available [facility] [address] [place] [address], [address], 04/14/2024 15:49:55 04/14/20 24 04/14/2024 COMPL ETE BLOOD COUNT % lymphocytes 20.5 % 11.0-4 7.0 normal Not Available [facility] [address] [place] [address], [address], 04/14/2024 15:49:55 04/14/20 24 04/14/2024 COMPL ETE BLOOD COUNT % monocytes 12.5 % 0.0-11 .0 high Not Available [facility] [address] [place] [address], [address], 04/14/2024 15:49:55 04/14/20 24 04/14/2024 COMPL ETE BLOOD COUNT % eosinophils 2.7 % 0.0-7. 0 normal Not Available [facility] [address] [place] [address], [address], 04/14/2024 15:49:55 04/14/20 24 04/14/2024 COMPL ETE BLOOD COUNT % basophils 1.4 % 0.0-3. 0 normal Not Available [facility] [address] [place] [address], [address], 04/14/2024 15:49:55 04/14/20 24 04/14/2024 COMPL ETE BLOOD COUNT nucleated red cells 0.1 % 0.0-0. 9 normal Not Available [facility] [address] [place] [address], [address], 04/14/2024 15:49:55 04/14/20 24 04/14/2024 COMPL ETE BLOOD COUNT nucleated RBCs, absolute 0.00 10*3/ uL not estab. normal Not Available [facility] [address] [place] [address], [address], 04/14/2024 15:49:55 04/14/20 24 04/14/2024 ALT ALT 12 U/L 0-33 normal Not Available [facility] [address] [place] [address], [phone], 04/14/2024 17:31:26 04/14/20 24 04/14/2024 CREAT ININE creatinine 0.82 mg/dL 0.50-0 .95 normal Not Available [facility] [address] [place] [address], [address], 04/14/2024 17:31:28 04/14/20 24 04/14/2024 AST AST 18 U/L 0-32 normal Not Available [facility] [address] [place] [address], [address], 04/14/2024 17:31:30 08/27/19 25 08/26/2024 COMPL ETE BLOOD COUNT white blood cells 4.0 10*3/ uL 3.8-10 .8 normal Not Available [facility] [address] [place] [address], [address], 08/26/2024 10:07:33 08/27/19 25 08/26/2024 COMPL ETE BLOOD COUNT red blood cells 3.86 10*6/ uL 3.80-5 .20 normal Not Available [facility] [address] [place] [address], [address], 08/26/2024 10:07:33 08/27/19 25 08/26/2024 COMPL ETE BLOOD COUNT hemoglobin 11.8 g/dL 12.0-1 6.0 low Not Available [facility] [address] [place] [address], [address], 08/26/2024 10:07:33 08/27/19 25 08/26/2024 COMPL ETE BLOOD COUNT hematocrit 35.1 % 35.0-4 7.0 normal Not Available [facility] [address] [place] [address], [address], 08/26/2024 10:07:33 08/27/19 25 08/26/2024 COMPL ETE BLOOD COUNT MCV 91 fL 80-100 normal Not Available [facility] [address] [place] [address], [address], 08/26/2024 10:07:33 08/27/19 25 08/26/2024 COMPL ETE BLOOD COUNT MCH 31 pg 26-35 normal Not Available [facility] [address] [place] [address], [address], 08/26/2024 10:07:33 08/27/19 25 08/26/2024 COMPL ETE BLOOD COUNT MCHC 34 g/dL 32-36 normal Not Available [facility] [address] [place] [address], [address], 08/26/2024 10:07:33 08/27/19 25 08/26/2024 COMPL ETE BLOOD COUNT RDW 17.9 % 11.0-1 5.0 high Not Available [facility] [address] [place] [address], [address], 08/26/2024 10:07:33 08/27/19 25 08/26/2024 COMPL ETE BLOOD COUNT MPV 8.7 fL 6.2-10 .5 normal Not Available [facility] [address] [place] [address], [address], 08/26/2024 10:07:33 08/27/19 25 08/26/2024 COMPL ETE BLOOD COUNT platelet count 245 10*3/ uL 150-40 0 normal Not Available [facility] [address] [place] [address], [address], 08/26/2024 10:07:33 08/27/19 25 08/26/2024 COMPL ETE BLOOD COUNT neutrophil,a bsolute 2.7 10*3/ uL 1.6-8. 4 normal Not Available [facility] [address] [place] [address], [address], 08/26/2024 10:07:33 08/27/19 25 08/26/2024 COMPL ETE BLOOD COUNT lymphocyte,a bsolute 0.8 10*3/ uL 0.4-5. 1 normal Not Available [facility] [address] [place] [address], [address], 08/26/2024 10:07:33 08/27/19 25 08/26/2024 COMPL ETE BLOOD COUNT monocyte,abs olute 0.3 10*3/ uL 0.0-1. 2 normal Not Available [facility] [address] [place] [address], [address], 08/26/2024 10:07:33 08/27/19 25 08/26/2024 COMPL ETE BLOOD COUNT eosinophil,a bsolute 0.2 10*3/ uL 0.0-0. 8 normal Not Available [facility] [address] [place] [address], [address], 08/26/2024 10:07:33 08/27/19 25 08/26/2024 COMPL ETE BLOOD COUNT basophil,abs olute 0.0 10*3/ uL 0.0-0. 3 normal Not Available [facility] [address] [place] [address], [address], 08/26/2024 10:07:33 08/27/19 25 08/26/2024 COMPL ETE BLOOD COUNT % neutrophils 66.0 % 42.0-7 8.0 normal Not Available [facility] [address] [place] [address], [address], 08/26/2024 10:07:33 08/27/19 25 08/26/2024 COMPL ETE BLOOD COUNT % lymphocytes 20.1 % 11.0-4 7.0 normal Not Available [facility] [address] [place] [address], [address], 08/26/2024 10:07:33 08/27/19 25 08/26/2024 COMPL ETE BLOOD COUNT % monocytes 8.7 % 0.0-11 .0 normal Not Available [facility] [address] [place] [address], [address], 08/26/2024 10:07:33 08/27/19 25 08/26/2024 COMPL ETE BLOOD COUNT % eosinophils 4.4 % 0.0-7. 0 normal Not Available [facility] [address] [place] [address], [address], 08/26/2024 10:07:33 08/27/19 25 08/26/2024 COMPL ETE BLOOD COUNT % basophils 0.8 % 0.0-3. 0 normal Not Available [facility] [address] [place] [address], [address], 08/26/2024 10:07:33 08/27/19 25 08/26/2024 COMPL ETE BLOOD COUNT nucleated red cells 0.1 % 0.0-0. 9 normal Not Available [facility] [address] [place] [address], [address], 08/26/2024 10:07:33 08/27/19 25 08/26/2024 COMPL ETE BLOOD COUNT nucleated RBCs, absolute 0.00 10*3/ uL not estab. normal Not Available [facility] [address] [place] [address], [address], 08/26/2024 10:07:33 08/27/19 25 08/26/2024 CREAT ININE creatinine 0.90 mg/dL 0.50-0 .95 normal Not Available [facility] [address] [place] [address], [address], 08/26/2024 10:32:12 08/27/19 25 08/26/2024 AST AST 22 U/L 0-32 normal Not Available [facility] [address] [place] [address], [address], 08/26/2024 10:32:14 08/27/19 25 08/26/2024 ALT ALT 16 U/L 0-33 normal Not Available [facility] [address] [place] [address], [address], 08/26/2024 10:32:15 08/27/19 25 08/28/2024 QUANT IFERO N TB GOLD qtb gold NEGATI VE negati ve normal Negat penny test resul t. M. tuber culos is compl ex infec tion unlik lyn. Not Available [facility] [address] [place] [address], [address], 08/28/2024 17:30:17 08/27/19 25 08/28/2024 QUANT IFERO N TB GOLD nil 0.02 IU/mL normal Not Available [facility] [address] [place] [address], [address], 08/28/2024 17:30:17 08/27/19 25 08/28/2024 QUANT IFERO N TB GOLD mitogen nil 6.03 IU/mL normal Not Available [facility] [address] [place] [address], [address], 08/28/2024 17:30:17 08/27/19 25 08/28/2024 QUANT IFERO N TB GOLD TB1 nil 0.00 IU/mL normal Not Available [facility] [address] [place] [address], [address], 08/28/2024 17:30:17 08/27/19 25 08/28/2024 QUANT IFERO [...] phocy malick. For addit ional infor estefania torue e refer to https ://ed christopherati on.qu abrahanFanMob/f aq/FA Q204 (This link is being provi ded for infor mercedes wise/ educa jerry l purpo ses only. ) Not Available [facility], [place], [address], 08/28/2024 17:30:17 Result Notes None recorded. Problems Name Problem SNOMED Code Status Onset Date Resolution Date Notes Provider Name and Address Organization Details Recorded Time Pain in right foot 03654906427 9107 Active 2015 From Automated Load;Prov ider: Aicha Briseno tatus: Active Not Available [facility] 6 05:07:30 Pain in left foot 52615248667 9107 Active 2015 From Automated Load;Prov ider: Keira Briseno;Negrito tatus: Active Not Available [facility] 6 05:07:30 Pain of right hand 34240499007 9109 Active 2015 From Automated Load;Prov ider: Keira Briseno;S tatus: Active Not Available [facility] 6 05:07:30 Hand pain 61732524 Active 2015 From Automated Load;Prov ider: Keira Briseno;S tatus: Active Not Available [facility] 6 05:07:30 Erythrocy te sedimenta tion rate above reference range 020797189 Active 2015 From Automated Load;Prov ider: Keira Briseno;S tatus: Active Not Available [facility] 6 05:07:30 Vitamin D deficienc y 08945144 Active 2015 From Automated Load;Prov ider: Keira Briseno;S tatus: Active Not Available [facility] 6 05:07:30 Psoriasis with arthropat hy Active 2015 From Automated Load;Prov ider: Keira Briseno;S tatus: Active Not Available [facility] 6 05:07:30 Small plaque parapsori asis 42678500 Active 2015 From Automated Load;Prov ider: Keira Briseno;S tatus: Active Not Available [facility] 6 05:07:30 Problem Notes None recorded. Procedures Surgical History Date Name Laterality Status Provider Name and Address Organization Details Recorded Time Orthopedic Surgery completed [facility] 11/07/2016 11:28:18 Imaging Results None recorded. Procedure Notes None recorded. Medical Equipment None Reported. Allergies Allergen ID Allergen Name Allergen Category Reaction Reaction Severity Criticality Documentation Date Start Date Code Code System Note Provider Name and Address Organization Details Recorded Time 117581 Product containin g penicilli n (product) medicatio n Not available Not available Not available 05/04/20162015 44750 8001 SNOMED Comme nt: Creat ed By: Emigdio ivan Date: 016 2:20: 38 PM; Not Available [facility] 6 10:17:34 188556 prednison e medicatio n insomnia moderate Not available 08/08/2020 8640 RxNorm nervo uscynthia Bocanegra [facility] 1 11:22:29 526779 hydroxyzi ne Not available nausea Not available Not available 07/20/2021 5553 RxNorm Cary hays [facility] 2 14:20:37 268698 venlafaxi ne medicatio n Not available Not available Not available 07/20/2021 65393 RxNorm Carytammy hays [facility] 2 14:20:49 Medications Name Sig [...] Updated DateTime 5 157.48 cm 47 kg/m2 699056. 24 g 95 /min 86 % 86 % 112/82 mm[Hg] [facility] 5 08:47:38 Date Recorded Body height Body mass index (BMI) Body weight Heart rate Oxygen saturation Oxygen saturation in Arterial blood by Pulse oximetry Respiratory rate Systolic And Diastolic Provider Name and Address Organization Details Last Updated DateTime 4 157.48 cm 44.7 kg/m2 591922. 34 g 59 /min 99 % 99 % 13 /min 108/72 mm[Hg] Katy Hicks [facility] 4 14:32:26 Date Recorded Body height Body mass index (BMI) Body weight Heart rate Oxygen saturation Oxygen saturation in Arterial blood by Pulse oximetry Systolic And Diastolic Provider Name and Address Organization Details Last Updated DateTime 4 157.48 cm 45.4 kg/m2 569246. 91 g 65 /min 94 % 94 % 128/80 mm[Hg] [facility] 4 15:52:25 Date Recorded Body height Body mass index (BMI) Body weight Respiratory rate Heart rate Oxygen saturation Oxygen saturation in Arterial blood by Pulse oximetry Systolic And Diastolic Provider Name and Address Organization Details Last Updated DateTime 5 157.48 cm 51.2 kg/m2 053545. 86 g 16 /min 66 /min 98 % 98 % 114/82 mm[Hg] Ema Hawthorne [facility] 5 15:57:47 Date Recorded Body height Body mass index (BMI) Body weight Heart rate Oxygen saturation Oxygen saturation in Arterial blood by Pulse oximetry Systolic And Diastolic Provider Name and Address Organization Details Last Updated DateTime 4 157.48 cm 45 kg/m2 460673. 72 g 67 /min 95 % 95 % 128/78 mm[Hg] Vita Berger [facility] 4 14:35:08 Social History Question Answer Notes LastModified by [employer] Details LastModified Time Tobacco Smoking Status Never Smoker Therese Izaguirre [facility] 07/02/2016 14:19:06 How Much Tobacco [...] 01/23/2019 Have You Recently Traveled Abroad? No [email or web address] Information not available 04/19/2022 Sex: Female Functional Status Question Answer Note LastModified by [employer] Details LastModified Time Do you use any illicit or recreational drugs? No Information not available 04/03/2021 Do you or have you ever used any other forms of tobacco or nicotine? No Information not available 04/03/2021 What is your level of alcohol consumption? None [email or web address] Information not available 07/02/2016 Do you or [...] Time Father No current problems or disability [email or web address] Not available 10/01 11:30:51 Mother No current problems or disability Not available 10/01 11:30:51 Unspecified Relation Asthma [...] 11:27:40 Medical History Condition Response Allergies/Hayfever Y Emphysema N COPD N Diabetes N Bleeding Disorder N Arthritis Y Acid Reflux (GERD) N Asthma N Heart Disease N Rheumatoid Arthritis Y Hypertension Y Gynecological HistoryNo gynecological history recorded. Obstetrics History GPAL:G 0 P 0 0 0 0 Immunizations Vaccine Type Date Status Note Provider Nam e and Address Organization Details Recorded Time Influenza, split virus, quadrivalent, PF 03/13/2016 completed Not Available [facility] 5 15:16:55 Past Encounters Encounter ID Performer Location Encounter Start Date Encounter Closed Date Diagnosis/Indication Diagnosis SNOMED-CT Code Diagnosis ICD10 Code Diagnosis IMO Codes Diagnosis Note [id number] KEIRA BRISENO APRN [facility] [address] [place] [address] 07/02/2016 13:22:18 07/02/2016 17:20:48 Psoriasis with arthropathy 44945533 L40.50 Pain in left foot 884030 1724 77248 M79.672 Pain in right foot 93577 68668 29192 M79.652 [id number] KEIRA BRISENO APRN [facility] [address] [place] [address] 10/01/2016 11:21:53 10/01/2016 12:09:28 Psoriasis with arthropathy 05686774 L40.50 psoriatic arthritis psoriasis improved overall joint pains are minimal with no effusions, synovitis or dactylitis discontinu e methotrexa te and folic acid started on humira with great outcome will continue to inject one every other week Pain of mu ltiple joints 26065889 M25.50 improved overall;si gnificant changes in the bilateral feetimprov ed overallsom e minor flares in the interim, but none major. 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 [id number] MARIANNE FLORES MD [facility] [address] [place] [address] 12/19/2016 14:02:31 12/19/2016 14:50:04 Psoriasis with arthropathy 68302997 L40.50 she has done quite sell.No active [...] Arava 10 mg to qod. obtain labs. [id number] KEIRA BRISENO APRN [facility] [address] [place] [address] 02/26/2017 11:22:53 02/26/2017 16:05:08 Psoriasis with arthropathy 51953749 L40.50 psoriatic arthritis psoriasis improved overall with minimal rashwill provide with 120 mg IM injection todayjoint pains are minimal with no effusions, synovitis or dactylitis started on humira with great outcome will continue to inject one every other week needs refills today Pain in le ft lower limb 436520603 M79.605 left lower leg and ankle/foot pain with numbness and tinglingon assessment there is palpable mass under the skin in the left mid to lower calfI would like for her to have an us to assess for blood clot of this extremity as soon as it is available Long-term drug therapy 096109828 Z79.756 [id number] KEIRA BRISENO APRN [facility] [address] [place] [address] 05/28/2017 13:03:52 05/28/2017 14:38:40 Psoriasis with arthropathy 86839872 L40.50 she has done quite sell. 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 [id number] KEIRA BRISENO APRN [facility] [address] [place] [id number] 08/23/2017 13:18:17 08/23/2017 14:20:22 Psoriasis with arthropathy 91427313 L40.50 she has done quite sell.curre ntly [...] labs and refills today Long-term drug therapy 356035826 Z79.899 labs and refills Candidiasis of skin 4988 3006 B37.2 under left breast Plaque psoriasis 7760975 09 L40.0 left wrist [id number] JENNIE PRADO MD [facility] [address] [place] [id number] 08/26/2017 14:28:19 09/02/2017 16:45:27 Blood in urine 52408063 R31.9 [id number] JENNIE PRADO MD SURGERY SCHEDULE [address] [place] [address] 09/10/2017 12:39:59 09/10/2017 12:47:44 [id number] KEIRA BRISENO APRN [facility] [address] [place], [place] [address] 12/04/2017 15:08:06 12/04/2017 15:52:33 Psoriasis with arthropathy 21625315 L40.50 she has done quite sell.curre ntly [...] on ativan for this Long-term drug therapy 143149406 Z79.899 labs and refills Psoriasis of scalp 53089 8008 L40.9 Motion sickness 78761022 T75.3XXA going on cruise [id number] KEIRA BRISENO APRN [facility] [address] [address] 03/06/2018 15:01:06 03/06/2018 16:43:51 Psoriasis with arthropathy 03475976 L40.50 recurring scalp and skin psoriasisn o [...] on ativan for this Long-term drug therapy 407578145 Z79.899 labs and refills Psoriasis of scalp 58060 8008 L40.9 [id number] KEIRA BRISENO APRN [facility] [address] [address] 07/08/2018 13:04:59 07/10/2018 10:52:40 Pain of shoulder region 74809685 M25.519 fell a couple of weeks ago in the kitchen and hit the left knee but reports she didn't have any injury with the right shoulder she reports she does sleep on this side she will take medrol livan to reduce inflammati on and if not improved she will report it if not improved Psoriasis with arthropathy 99069409 L40.50 recurring scalp and skin psoriasisn o [...] on ativan for this Long-term drug therapy 414790258 Z79.899 labs and refills Psoriasis of scalp 59012 8008 L40.9 Restless l egs syndrome 84787939 G25.81 [id number] KEIRA BRISENO APRN [facility] [address] [place] [id number] 10/07/2018 12:43:41 10/07/2018 13:17:13 Psoriasis with arthropathy 13738636 L40.50 recurring scalp and skin psoriasisn o [...] currently on ativan for this Pain of [facility] 47394716 M25.519 improved overall with the loading dose of cosentyx Long-term drug therapy 188791817 Z79.899 labs and refills Psoriasis of scalp 75959 8008 L40.9 gone with cosentyx Restless l egs syndrome 88784046 G25.81 [id number] KEIRA BRISENO APRN [facility] [address] [place] [address] 01/23/2019 13:34:08 01/26/2019 09:42:48 Psoriasis with arthropathy 36064647 L40.50 recurring scalp and skin psoriasisn o [...] currently on ativan for this Pain of [facility] 64538519 M25.519 improved overall with the loading dose of cosentyx Long-term drug therapy 452392877 Z79.899 labs and refills Psoriasis of scalp 60202 8008 L40.9 gone with cosentyx Restless l egs syndrome 35529874 G25.81 Brynn an gular cheilitis 894465076 B37.83 [id number] KEIRA BRISENO APRN [facility] [place] [address] 06/16/2019 12:53:10 06/16/2019 14:16:57 Psoriasis with arthropathy 90506509 L40.50 recurring scalp and skin psoriasisn o [...] ativan for this Restless l egs syndrome 25579223 G25.81 Body mass index 40+ - severely obese 594816117 Z68.42 Brynn an gular cheilitis 061623461 B37.83 improved Long-term drug therapy 481462214 Z79.899 labs and refills Psoriasis of scalp 28855 8008 L40.9 gone with cosentyx [id number] KEIRA BRISENO APRN [facility] [place] [address] [place] [address] 06/29/2020 11:15:49 06/29/2020 11:59:40 Psoriasis with arthropathy 39357252 L40.50 recurring scalp and skin psoriasisn o [...] ativan for this Restless l egs syndrome 77931278 G25.81 Long-term drug therapy 741133216 Z79.899 labs and refills Psoriasis of scalp 29345 8008 L40.9 Body mass index 40+ - severely obese 014008321 Z68.42 Plaque psoriasis 8895941 09 L40.0 left wrist Tuberculos is screening 552576497 Z11.1 [id number] KEIRA BRISENO APRN [facility] [address] [place] [address] 10/03/2020 14:38:41 10/03/2020 15:43:36 Psoriasis with arthropathy 90143302 L40.50 recurring scalp and skin psoriasis no [...] 2 weeks injections Restless l egs syndrome 20624386 G25.81 Long-term drug therapy 723676969 Z79.899 labs and refills Psoriasis of scalp 99124 8008 L40.9 Body mass index 40+ - severely obese 165408848 Z68.42 Tuberculos is screening 184923617 Z11.1 negative 06/29/2020 [id number] KEIRA BRISENO APRN [facility] [address] [place] [address] 01/02/2021 14:34:27 01/02/2021 16:10:23 Psoriasis with arthropathy 56205711 L40.50 recurring scalp and skin psoriasis no [...] ativan for this Restless l egs syndrome 80880036 G25.81 Long-term drug therapy 931691024 Z79.899 labs and refills Psoriasis of scalp 27560 8008 L40.9 improved overallwil l have her take some prednisone Tuberculos is screening 398544599 Z11.1 negative 06/29/2020 Body mass index 40+ - severely obese 702182803 Z68.42 [id number] KEIRA BRISENO APRN [facility] [address] [place] [address] 04/03/2021 13:29:02 04/03/2021 16:34:04 Psoriasis with arthropathy 26060046 L40.50 recurring scalp and skin psoriasis no [...] on ativan for this Long-term drug therapy 152155782 Z79.899 labs and refills Tuberculos is screening 379985528 Z11.1 negative 06/29/2020 [id number] KEIRA BRISENO APRN [facility] [address] [place] [address] 07/20/2021 14:04:35 07/21/2021 08:59:09 Psoriasis with arthropathy 83279330 L40.50 recurring scalp and skin psoriasis no [...] on ativan for this Long-term drug therapy 600847682 Z79.899 labs and refills Tuberculos is screening 349061658 Z11.1 negative 07/20/2021 Fatigue 60078669 R53.83 Vitamin D deficiency 347 50725 E55.9 Vitamin B1 2 deficiency (non anemic) 52751416 E53.8 [id number] KEIRA BRISENO APRN [facility] [address] [place] [address] 10/19/2021 12:31:45 10/19/2021 14:00:31 Psoriasis with arthropathy 76497586 L40.50 recurring scalp and skin psoriasis no [...] on ativan for this Long-term drug therapy 899935096 Z79.899 labs and refills Tuberculos is screening 633235220 Z11.1 negative 07/20/2021 Fatigue 74343960 R53.83 Vitamin D deficiency 347 67189 E55.9 Vitamin B1 2 deficiency (non anemic) 94163243 E53.8 Acute left otitis media 428913914 H66.92 [id number] KEIRA BRISENO APRN [facility] [address] [address] 01/18/2022 13:41:25 01/18/2022 16:30:06 Psoriasis with arthropathy 13217832 L40.50 recurring scalp and skin psoriasis no [...] ativan for this Restless l egs syndrome 07245267 G25.81 Nausea 386340822 R11.0 Herpes zoster 7816784 B0 2.9 Long-term drug therapy 427946137 Z79.899 labs and refills Tuberculos is screening 439248307 Z11.1 negative 07/20/2021 [id number] KEIRA BRISENO APRN [facility] [address] [place] [address] 04/19/2022 14:03:15 04/19/2022 16:39:37 Psoriasis with arthropathy 35795705 L40.50 recurring scalp and skin psoriasis no [...] ativan for this Restless l egs syndrome 17856188 G25.81 Nausea 561314302 R11.0 Herpes zoster 5026492 B0 2.9 Long-term drug therapy 064733329 Z79.899 labs and refills Tuberculos is screening 721160187 Z11.1 negative 07/20/2021 Lesion of oral mucosa 10 77833901 604202 K13.70 [id number] KEIRA BRISENO APRN [facility] [address] [place] [address] 08/21/2022 12:48:15 08/22/2022 04:33:04 Psoriasis with arthropathy 31135484 L40.50 recurring scalp and skin psoriasis no [...] ativan for this Restless l egs syndrome 40898326 G25.81 Nausea 881623600 R11.0 Herpes zoster 6173702 B0 2.9 improved Long-term drug therapy 900689003 Z79.899 labs and refills Tuberculos is screening 706952355 Z11.1 negative 07/20/2021 Lesion of oral mucosa 10 36804775 421822 K13.70 Lumbago with sciatica 20 1278183 M54.42 bilateral side with weakness in bilateral legs Ulcer of mouth 12812209 K12.1 [id number] KEIRA BRISENO APRN [place] [place] [address] 11/20/2022 13:50:46 11/21/2022 04:38:50 Psoriasis with arthropathy 52701040 L40.50 recurring scalp and skin psoriasis no [...] ativan for this Restless l egs syndrome 94639441 G25.81 Nausea 444601017 R11.0 Herpes zoster 1831900 B0 2.9 improved Long-term drug therapy 567511809 Z79.899 labs and refills Tuberculos is screening 623116343 Z11.1 negative 08/21/2022 Lesion of oral mucosa 10 22698216 436914 K13.70 improved overall Lumbago with sciatica 20 8382243 M54.42 bilateral side with weakness in bilateral legs Ulcer of mouth 25395049 K12.1 [id number] KEIRA BRISENO APRN [facility] [address] [place] [address] 02/26/2023 15:13:42 02/27/2023 04:50:24 Psoriasis with arthropathy 77719597 L40.50 recurring scalp and skin psoriasis no [...] ativan for this Restless l egs syndrome 71622621 G25.81 Nausea 780828030 R11.0 Herpes zoster 0951673 B0 2.9 improved Long-term drug therapy 249338527 Z79.899 labs and refills Tuberculos is screening 594724028 Z11.1 negative 08/21/2022 Lesion of oral mucosa 10 85993528 725844 K13.70 improved overall Lumbago with sciatica 20 1615819 M54.42 bilateral side with weakness in bilateral legs Ulcer of mouth 90063792 K12.1 Dizziness and giddiness 347132068 R42 New balance issues leaning to left side with ambulation . Dizziness while in bed.Recent falls. No new medication changes. No vision or hearing changes recently. [id number] KEIRA BRISENO APRN [facility] [address] [place] [address] 07/12/2023 13:32:25 07/13/2023 04:34:08 Psoriasis with arthropathy 83893909 L40.50 recurring scalp and skin psoriasis no [...] will notify me. 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 Dizziness while in bed.Recent falls. No new medication changes. No vision or hearing changes recently. [id number] KEIRA BRISENO APRN [facility] [address] [place] [address] 10/11/2023 13:34:24 10/16/2023 12:03:18 Psoriasis with arthropathy 42299507 L40.50 recurring scalp and skin psoriasis no [...] will notify me. 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 Dizziness while in bed.Recent falls. No new medication changes. No vision or hearing changes recently. Psoriasis of scalp 97289 8008 L40.9 improved overallwil l have her take some prednisone 36321717 KEIRA BRISENO APRN [facility] [address] [place] [address] 01/17/2024 14:55:23 01/22/2024 10:31:11 Psoriasis with arthropathy 38582758 L40.50 recurring scalp and skin psoriasis no [...] will notify me. 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 Dizziness while in bed.Recent falls. No new medication changes. No vision or hearing changes recently. Psoriasis of scalp 49302 8008 L40.9 improved overallwil l have her take some prednisone Abscess of skin of abdomen 0194272374 6099562 L02.211 [id number] KEIRA BRISENO APRN [facility] [address] [place] [address] 04/14/2024 14:03:09 04/15/2024 04:33:15 Psoriasis with arthropathy 45352306 L40.50 recurring scalp and skin psoriasis no [...] cosentyx down and Restless l egs syndrome 73941382 G25.81 Nausea 071566784 R11.0 Herpes zoster 4228545 B0 2.9 improved Long-term drug therapy 312348029 Z79.899 labs and refills Tuberculos is screening 447303329 Z11.1 negative 10/11/2023 Lesion of oral mucosa 10 33288683 149199 K13.70 improved overall Lumbago with sciatica 20 6734486 M54.42 bilateral side with weakness in bilateral legs Ulcer of mouth 30664470 K12.1 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 Dizziness while in bed.Recent falls. No new medication changes. No vision or hearing changes recently. Psoriasis of scalp 54093 8008 L40.9 improved overallwil l have her take some prednisone [id number] KEIRA BRISENO APRN [facility] [address] [place] [address] 08/26/2024 08:32:44 08/27/2024 05:17:25 Psoriasis with arthropathy 84256879 L40.50 recurring scalp and skin psoriasis- improved [...] her loading dose Restless l egs syndrome 51022013 G25.81 Nausea 027138369 R11.0 Herpes zoster 9286155 B0 2.9 improved Long-term drug therapy 649932671 Z79.899 labs and refills Tuberculos is screening 217066167 Z11.1 negative 08/26/2024 Lesion of oral mucosa 10 23212591 265168 K13.70 improved overall Lumbago with sciatica 20 0355880 M54.42 bilateral side with weakness in bilateral legs Ulcer of mouth 78079968 K12.1 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 Dizziness while in bed.Recent falls. No new medication changes. No vision or hearing changes recently. 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 Restless l egs syndrome 88078376 G25.81 - Continue ropinirole but consider discussing alternativ e treatments with the new primary care physician due to gastrointe stinal discomfort . Long-term drug therapy 514322420 Z79.899 - labs every 6 months on [...] vaccines. No live vaccines. Tuberculos is screening 554364841 Z11.1 negative 08/26/2024 Psoriasis of scalp 78527 8008 L40.9 - Use clobetasol ointment for topical treatment during flare-ups. - She uses doxycyclin e during severe flare-ups affecting the stomach and scalp.- continue follow up with dermatolog y Spinal nilay nosis of lumbar region 31904913 M48.062 269702 Limits her gait- continue follow up with [...] (MEDICARE REPLACEMENT/A DVANTAGE - HMO) Karrie Tobias [id number] Karrie Tobias 10/19/2021 1 [employer] (MEDICARE REPLACEMENT/A DVANTAGE - HMO) Karrie Tobias [id number] Karrie Tobias 03/20/2025 2 [employer] (MEDICARE SUPPLEMENT) Karrie Tobias [id number] Karrie Tobias 10/19/2021 3 [place] Karrie Tobias [id number] Karrie Tobias 10/19/2021 1 [facility] (MEDICAID REPLACEMENT - HMO) Karrie Tobias [id number] Karrie Tobias 06/29/2020 1 *SELF PAY* Ve [...] bowel/bladder changes. All others negative. KEIRA BRISENO, [employer] [facility] [address] [place], [address], [facility] 10/11/2023 15:28:14 04/14/2024 text/html ROS as noted [...] bowel/bladder changes. All others negative. KEIRA BRISENO, [employer] [facility] [address] [place], [address], [facility] 04/14/2024 15:04:43 08/26/2024 text/html ROS as noted [...] All others negative. KEIRA BRISENO, BRITT [address] [place], [address], [facility] 08/26/2024 09:13:59 03/23/2025 text/html ROS as noted [...] note prior to signature. KAUSHAL BANSAL MD [address] [place] [address], [address], [facility] 03/24/2025 06:38:05 OBGyn Episode No OBEpisode recorded.
--- OUTSIDE RECORDS SUMMARY | 2025-04-07 10:53 | XMS_ITS | Encounter Summary ---
[facility] [address] [place] [id number] Care Team Providers Care Revenue Officer Name Role Phone Archibald, Dionte Rhiannon NURSE CHARGE RN Primary Care Provider + Reason for Visit * Reason Onset Date Comments Med Refill 09/26/2021 Encounter Details Date Type Department Care Team (Late st Contact Info) Description 09/26/2021 Refill [facility] [address] [facility] [address] [place] [id number] Dionte Archibald, NURSE CHARGE RN [address] [facility] [address] [place] [address] Psoriasis with arthropathy Social History Tobacco Use [...] .Caller: PARTH Relationship: MARY Best call back number:[phone] Requested Prescriptions: Requested Prescriptions Pending Prescriptions Disp Refills ??? clobetasol (TEMOVATE) 0.05 % ointment 15 g 1 Sig: Apply topically to the appropriate area as directed See Admin Instructions. Apply topically tothe affected area twice daily Pharmacy where request should be sent: [id number] - [place], [place] - [address] [facility] [phone] [facility] [phone] FX Additional details provided by patient: N/A Does the patient have less than a 3 day supply: [x] Yes [x] No Scotty KWOK 09/26/21 12:59 EDT documented in this encounter Plan of Treatment Not on file documented as of this encounter Visit Diagnoses Diagnosis Psoriasis with arthropathy Psoriatic arthropathy documented in this encounter Care Teams Revenue Officer Relationship Specialty Start Date End Date Dionte Archibald APRN [address] [place] [address] PCP - General Family Medicine 11/16/20 documented as of this encounter
--- NOTE | 2025-04-07 11:15 | CA_ITS ---
APPROVED REPORT EXAM: Comprehensive 2D, Doppler, and color-flow Echocardiogram [employer]: Kira Lowe RT(R) Ht: 5 ft 3 in Wt: 274lbs BSA: 2.21 BP: 166/82 mmHg Indications: OMNTANO, PAD 2D Dimensions LVEF (Pérez's) 47.90 % F: 54 - 74 LV Volume 138.90 mL F: 46 - 106 LV Volume Index 62.9 mL/m2 F: 29 - 61 EF AP4 45.80 % EF AP2 48.1 % EF BP 47.9 % GL Strain -17.2 % M-Mode Dimensions RVDd 2.63 cm (0.9-2.6) LA Diam 4.09 cm (1.9-4.0) LVDd 5.44 cm (3.5-5.7) LVDs 3.95 cm (3.5-5.7) IVSd 1.10 cm (0.6-1.1) PWd 1.10 cm (0.6-1.1) EF (Teich) 52.70% FS 27.40% EDV (Teich) 143.70 mL ESV (Teich) 67.90 mL LV Diastology E Decel Time 163 (160-240 msec) E/A Ratio 1.0 Mitral Valve MV E Max Tam. 99.0 (40-130 cm/s) MV A Velocity 98.0 (40-130 cm/s) E/A Ratio 1.01 MV PHT 48.0 ms Left Ventricle The left ventricle is normal size. Left ventricular systolic function is normal. The left ventricular ejection fraction is within the normal range. There is increased left ventricular wall thickness. There is normal LV segmental wall motion. The left ventricular diastolic function is normal. LVEF is 55% Right Ventricle The right ventricle is mildly dilated. The right ventricular systolic function is normal. Atria Left atrium is mildly dilated. Right atrium is mildly dilated. There is no color Doppler evidence of interatrial shunt. Aortic Valve The aortic valve is mildly thickened. There is no hemodynamically significant aortic valvular stenosis. Trace aortic regurgitation is present. Mitral Valve The mitral valve is normal in structure. No evidence of mitral valve stenosis. Mild mitral regurgitation is present. Tricuspid Valve The tricuspid valve leaflets are thin and pliable. Trace tricuspid regurgitation. There is insufficient TR jet to estimate RVSP. Pulmonic Valve The pulmonary valve is grossly normal in structure. Trace pulmonic valve regurgitation is present. Great Vessels The aortic root is normal in size. IVC is normal in size and collapses >50% with inspiration. Pericardium There is no pericardial effusion. Other Information Study Quality: Technically Difficult Conclusion Normal biventricular systolic function. Mild RV dilation. Mild biatrial dilation. Mild MR. Electronically signed by : Lacey Sands MD 04/11/2025 15:44:47
--- NOTE | 2025-04-07 12:00 | NM_ITS ---
APPROVED REPORT Exam: Nuclear Stress Test Indication: cp..soa..fatigue..palpitations Patient Location: Outpatient Stress Tech: Trina Stephens [place] Tech:Nicolasa Garcia, ARRT, RT (R)(N) Ht: 5 ft 0 in Wt: 173 lbs Bra Size: 42c HR: 58 bpm BP: 187/87 mmHg BSA: 1.76 m2 TID: 1.16 History: cp..soa..fatigue..palpitations Procedure: Patient received 0.4 mg of intravenous Lexiscan, resting heart rate 58 bpm, resting blood pressure 187/87 mmHg, with Lexiscan maximum heart rate achieved was 88 bpm which is 85 % of the maximum predicted heart rate and blood pressure was 182/97 mmHg. With Lexiscan, patient denied any complaint of chest pain. The patient was not able to lay on her abdomen for prone images. Cardiac Stress and Resting SPECT Images: Cardiac Stress and Resting SPECT images were obtained using technetium 99m Myoview 32.7 mCi stress and 10.56 mCi at rest. The patient was unable to lie on her abdomen. Therefore, prone stress imaging could not be performed. This may affect the diagnostic interpretation of the study findings. Resting and stress imaging in supine position demonstrates a medium-sized, moderate, partially reversible perfusion defect in the inferior LV wall. There is also a medium-sized, moderate, fixed perfusion defect in the anterior LV wall. Gated imaging demonstrates normal global LV systolic function. LVEF is calculated at 56%. Conclusion: Medium-sized, moderate, partially reversible perfusion defect in the inferior LV wall. Findings are suggestive of partial reversible ischemia. There is also a medium-sized, moderate, fixed perfusion defect in the anterior LV wall. Gated imaging demonstrates normal global LV systolic function. LVEF is calculated at 56%. Electronically signed by : Lacey Sands MD 04/08/2025 13:15:05
[2025-04-07 13:34] VITALS: BP 187/87; PULSE 57; RESP 14
[2025-04-07] MEDS: SODIUM CHLORIDE 0.9% 10ML SYR (RAD ONLY) 10 ML IV ×2 (13:43)
[2025-04-07] MEDS: ISOTOPE MYOVIEW (PER STUDY) 1 DOSE IV (13:43)
== END 2025-04-07 23:59 | disposition home or self-care (01) ==
LOC: RT 10:46 → RAD 11:31
PROVIDERS: PCP Nurse Practitioner Family; Visit Provider Internal Medicine
DX: I34.0 Nonrheumatic mitral (valve) insufficiency (principal); I11.9 Hypertensive heart disease without heart failure; R94.39 Abnormal result of other cardiovascular function study; I73.9 Peripheral vascular disease, unspecified; I49.1 Atrial premature depolarization; R94.31 Abnormal electrocardiogram [ECG] [EKG]
CPT/HCPCS: 78452; 93017; 93018; 93306; A9502; J2785

== ENCOUNTER 2025-04-29 08:52 | Day surgery (SDC) | payer MEDICARE, SELFPAY ==
[2025-04-29] VITALS (17 sets, daily range): BP systolic 132–173; BP diastolic 77–98; PULSE 52–62; RESP 17–18; O2SAT 92–96; BMI 313.3
--- NOTE | 2025-04-29 07:01 | IR_ITS ---
APPROVED REPORT Patient Location: Outpatient PROCEDURES Left heart catheterization Left ventriculogram Selective coronary angiogram INDICATION Abnormal Myoview, Angina pectoris, Informed consent was obtained prior to the procedure. COMPLICATIONS NONE Estimated Blood Loss: LESS THAN 10 ML TECHNIQUE One percent lidocaine was used to anesthetize the right groin. The right femoral artery was accessed via the Seldinger technique. A 4-Welsh sheath was placed in the right femoral artery. The JL-4 and JR-4 catheter was also used to perform left heart catheterization left ventriculogram and selective coronary angiogram. At the end of the procedure the patient was transferred to the post-op holding area in stable condition for arterial sheath removal. ANGIOGRAPHIC RESULTS The left main artery Normal The left anterior descending artery Normal The circumflex artery Dominant normal The right coronary artery Normal The KIM ventriculogram reveals 60% The left ventricular end-diastolic pressure Less than 10 mmHg IMPRESSION Normal coronary arteries Normal ejection fraction Normal LVEDP PLAN 1. Evaluation of noncardiac symptoms Electronically signed by : Bruce Moody MD 04/29/2025 13:44:54
[2025-04-29 09:18] LABS: Hematocrit 35.0 % (37.0-47.0); Hemoglobin 10.8 g/dL (12.2-16.2); Immature Granulocytes % 0.2 %; Mean Corpuscular HGB Conc 30.9 g/dL (31.8-35.4); Mean Corpuscular Hemoglobin 27.7 pg (27.0-31.2); Mean Corpuscular Volume 89.7 fl (81-99); Nucleated Red Blood Cells % 0 %; Platelet Count 249 K/mm3 (142-424); Red Blood Count 3.90 M/mm3 (4.20-5.40); Red Cell Distribution Width-SD 58.1 fL; White Blood Count 4.2 K/mm3 (4.8-10.8)
[2025-04-29 09:28] LABS: Chloride 105 mmol/L (98-107); Potassium 4.8 mmoL/L (3.5-5.1); Sodium 144 mmol/L (136-145)
[2025-04-29 09:31] LABS: Anion Gap 15.8 mEq/L (5-15); Blood Urea Nitrogen 24 mg/dl (7-17); Carbon Dioxide 28 mmol/L (22.0-30.0); Creatinine Clearance Estimated -31 mL/min (50-200); Creatinine,Serum 1.00 mg/dl (0.52-1.04); Estimated Glomerular Filt Rate 55 ml/min (>60); GFR (African American) 67 ML/MIN (>60)
[2025-04-29 09:32] LABS: Calcium 9.1 mg/dl (8.4-10.2); Glucose 96 mg/dl (74-100)
[2025-04-29] MEDS: FENTANYL 100MCG/2ML VIAL 50 MCG IV (12:55)
[2025-04-29] MEDS: MIDAZOLAM HCL 1MG/ML 5ML VIAL 1 MG IV (12:55)
[2025-04-29] MEDS: NITROGLYCERIN 800MCG/8ML SYR (CATH LAB) 800 MCG IA (12:56)
[2025-04-29] MEDS: HEPARIN 1,000 UNITS/500ML NS (CATH LAB) 3000 UNIT IV (12:56)
[2025-04-29] MEDS: VERAPAMIL 2.5MG/ML 2ML VIAL 2.5 MG IV (12:57)
[2025-04-29] MEDS: HEPARIN 1,000 UNITS/ML 10ML VIAL (CATH LAB) 5000 UNIT IV (12:57)
[2025-04-29] MEDS: LIDOCAINE 1% 10ML MDV 10 ML IJ (12:57)
[2025-04-29] MEDS: 0.9 % SODIUM CHLORIDE 500 ML 25 ML IV (12:58)
[2025-04-29] MEDS: IOPAMIDOL-370 (76%);100ML BOTTLE 50 ML IV (14:34)
== END 2025-04-29 17:05 | disposition home or self-care (01) ==
LOC: CATHLAB 08:53
PROVIDERS: PCP Nurse Practitioner Family; Visit Provider Internal Medicine
PROC: 4A023N7 Measurement of Cardiac Sampling and Pressure, Left Heart, Percutaneous Approach (ICD-10-PCS; CPT 93452; principal; 2025-04-29 10:15)
DX: R94.39 Abnormal result of other cardiovascular function study (principal); I20.9 Angina pectoris, unspecified; R53.83 Other fatigue; I73.9 Peripheral vascular disease, unspecified; R06.09 Other forms of dyspnea; I10 Essential (primary) hypertension; E78.5 Hyperlipidemia, unspecified; K21.9 Gastro-esophageal reflux disease without esophagitis; Z98.84 Bariatric surgery status; Z82.49 Family history of ischemic heart disease and other diseases of the circulatory system; Z79.899 Other long term (current) drug therapy; Z79.82 Long term (current) use of aspirin; Z88.0 Allergy status to penicillin; Z88.8 Allergy status to other drugs, medicaments and biological substances; Z82.3 Family history of stroke
CPT/HCPCS: 36415; 80048; 85025; 93458; 99152; 99153; C1725; C1769; J1200; J1644; J3010; J7040; Q9967